=== PATIENT | male | born 1950 | race Caucasian/White ===

== ENCOUNTER 2016-10-17 12:36 | Emergency (ER) | payer OTHER, MEDICARE ==
[~2016-10-17] VITALS: Ht 177.8 cm; Wt 98.0 kg
[~2016-10-17 12:36] MED LIST: ALL300 PO; AMLO-114 PO; ASPEC81 PO; GLC500 PO; GLUC500T23 PO; GLYBURIDE PO; HYZUNK PO; INDO-22 PO; MULT-513 PO; SIMV40TA2 PO
[2016-10-17 12:38] VITALS: Ht 177.8 cm; Wt 98.0 kg
[2016-10-17] MEDS ORDERED: LOSA100T26 PO (12:59)
[2016-10-17] MEDS ORDERED: ALL300 PO (12:59)
[2016-10-17] MEDS ORDERED: MCR5 PO (12:59)
[2016-10-17] MEDS ORDERED: AMLO-114 PO (12:59)
[2016-10-17] MEDS ORDERED: ASPI81TA28 PO (12:59)
[2016-10-17] MEDS ORDERED: ZCR40 PO (12:59)
[2016-10-17] MEDS ORDERED: METF-384 PO (12:59)
[2016-10-17] MEDS ORDERED: ALBUT/IPRATROP 3MG/0.5MG NEB 3 ML VIAL INH STA (13:15)
[2016-10-17] MEDS ORDERED: ACETAMINOPHEN 325 MG TAB PO STA (13:15)
[2016-10-17] MEDS ORDERED: SODIUM CHLORIDE 0.9% 500ML 500 ML IV STA (13:15)
[2016-10-17 13:48] LABS: BASO % 0.4 %; BASO ABS # 0.07 K/uL (0-0.2); COMPLETE YES; EOS % 0.7 %; HEMATOCRIT 40.3 % (42-52); IG% 0.3 %; LYMPH % 12.9 %; MEAN CELL VOLUME 92.6 fL (80-100); MEAN CORPUSCULAR HGB CONC 33.5 g/dl (32-36); MEAN PLATELET VOLUME 11.1 fL (7.4-10.4); MONO % 7.1 %; NEUT % 78.6 %; PLATELET COUNT 479 K/uL (130-400); RED BLOOD COUNT 4.35 M/uL (4.7-6.1); WHITE BLOOD COUNT 16.25 K/uL (4.8-10.8)
[2016-10-17 14:02] LABS: PARTIAL THROMBOPLASTIN RATIO 1.1; PROTHROMBIN TIME (PATIENT) 10.9 SECONDS (9.0-12.0)
[2016-10-17 14:06] LABS: ALT/SGPT 41 U/L (12-78); BLOOD UREA NITROGEN 18 mg/dl (7-18); BUN/CREATININE RATIO 12.7 (10-20); CALCIUM 9.1 mg/dl (8.5-10.1); CARBON DIOXIDE 26 mmol/L (21-32); CHLORIDE 102 mmol/L (98-107); GLUCOSE 204 mg/dl (70-99); POTASSIUM 4.1 mmol/L (3.5-5.1); SODIUM 137 mmol/L (136-145)
[2016-10-17 14:11] LABS: ALKALINE PHOSPHATASE 86 U/L (45-117); AST/SGOT 22 U/L (15-37)
--- NOTE | 2016-10-17 14:40 | DIAGNOSTIC IMAGING REPORT ---
TWO VIEW CHEST CLINICAL HISTORY: Cough and fever. FINDINGS: PA and lateral chest radiographs are compared to study dated 09/07/2012. The cardiomediastinal silhouette is unremarkable. There is dense lobar consolidation is seen in the right middle lobe. The left lung appears clear. No pleural effusion or pneumothorax is identified. The bony thorax appears intact. Extensive fusion hardware is noted in the lower cervical spine. IMPRESSION: There is dense right middle lobe consolidation typical in appearance for pneumonia. Radiographic follow-up to resolution is recommended. Electronically signed by: Bob Wadsworth M.D. 10/17/2016 2:39 PM Dictated Date/Time: 10/17/2016 2:38 PM
[2016-10-17 14:43] LABS: LYME DISEASE AB IGG NEG (NEG); LYME DISEASE AB IGM NEG (NEG)
[2016-10-17] MEDS ORDERED: LEVOFLOXACIN 250 MG TAB PO ONE (14:45)
[2016-10-17] MEDS ORDERED: LEVO750T23 PO (15:18)
[2016-10-17 15:36] VITALS: BP 128/65; PULSE 82; TEMP 36.4; O2SAT 97
--- NOTE | 2016-10-17 19:46 | EMERGENCY ROOM VISIT NOTE ---
History Report prepared by Delbert: Radha Redman Under the Supervision of: Dr. Geremias Salter M.D. First contact with patient: 13:06 Chief Complaint: FLU LIKE SX Stated Complaint: FLU LIKE SX, SOB, SWEATS History of Present Illness The patient is a 65 year old male who presents to the Emergency Room with complaints of persistent flu-like symptoms for the past 2 weeks. He was having diarrhea and urinary symptoms initially that he states have resolved at this time. He is still experiencing generalized body aches, congestion, chills, diaphoresis, and an intermittent headache. The patient reports a productive cough with white sputum. Two days ago he developed shortness of breath that has started to worsen. He also notes increased sweating and "minor" chest pain. His pain is not worsened with coughing. He describes his pain as sharp and states that he thinks he "popped a rib" and that is causing his chest pain. He has been using OTC medications for his symptoms. He has not seen his PCP for these symptoms. The patient denies vomiting, abdominal pain, rash, and recent tick bites. He does report a 10-pound weight loss. Source of History: patient Onset: 2 weeks ago Position: other (global) Quality: other (flu-like) Timing: other (persistent) Associated Symptoms: + chills, + headache, + diaphoresis, + cough, + chest pain, + SOB, No vomiting, No abdominal pain, No rash Review of Systems See HPI for pertinent positives & negatives. A total of 10 systems reviewed and were otherwise negative. Past Medical & Surgical Medical Problems: (1) DM w/o complication type II, uncontrolled Surgical Problems: (1) History of knee replacement (2) Hx of spinal fusion Family History Cancer Diabetes mellitus Heart disease Hypertension Lung disease Social History Smoking Status: Former Smoker Alcohol Use: occasionally Marital Status: Housing Status: lives with significant other Occupation Status: retired Current/Historical Medications Scheduled Allopurinol (Allopurinol), 300 MG PO DAILY Amlodipine (Norvasc), 10 MG PO DAILY Aspirin (Aspirin Ec), 81 MG PO DAILY Glyburide (Glyburide), 2 TAB PO DAILY Hctz/Losartan (Hyzaar 12.5MG/100MG), 1 TAB PO DAILY Levofloxacin (Levaquin), 1 TAB PO DAILY Metformin Hcl (Glucophage), 1,000 MG PO BID Simvastatin (Simvastatin), 40 MG PO QPM Allergies Coded Allergies: No Known Allergies (Unverified , 09/24/11) Physical Exam Vital Signs Date Time Temp Pulse Resp B/P (MAP) Pulse Ox O2 Delivery O2 Flow Rate FiO2 10/17/16 15:36 36.4 82 18 128/65 97 10/17/16 14:35 83 16 128/65 10/17/16 13:54 72 10/17/16 12:38 36.4 80 22 122/72 96 Room Air Physical Exam Constitutional: Vital signs reviewed. Eyes: Pupils are equal round reactive to light. Conjunctiva are noninjected. ENT: Pharynx is clear without erythema or exudate. Mucous membranes are moist. Neck supple without meningeal signs. Respiratory: Clear to auscultation bilaterally. Breath sounds are equal bilaterally. Cardiovascular: Regular rate and rhythm. No rubs or gallops. GI: Soft, nondistended and nontender. Bowel sounds are present. Musculoskeletal: No peripheral edema. No lower extremity tenderness. Integumentary: No cyanosis. Neurological: The patient is awake and alert. No focal deficits. Psychiatric: Normal affect. Medical Decision & Procedures ER Provider Diagnostic Interpretation: Radiology results as stated below per my review and the radiologist's interpretation: TWO VIEW CHEST CLINICAL HISTORY: Cough and fever. FINDINGS: PA and lateral chest radiographs are compared to study dated 09/07/2012. The cardiomediastinal silhouette is unremarkable. There is dense lobar consolidation is seen in the right middle lobe. The left lung appears clear. No pleural effusion or pneumothorax is identified. The bony thorax appears intact. Extensive fusion hardware is noted in the lower cervical spine. IMPRESSION: There is dense right middle lobe consolidation typical in appearance for pneumonia. Radiographic follow-up to resolution is recommended. Electronically signed by: Bob Wadsworth M.D. 10/17/2016 2:39 PM Dictated Date/Time: 10/17/2016 2:38 PM Laboratory Results 10/17/16 13:28 Red Blood Count 4.35, Mean Corpuscular Volume 92.6, Mean Corpuscular Hemoglobin 31.0, Mean Corpuscular Hemoglobin Concent 33.5, Mean Platelet Volume 11.1, Neutrophils (%) (Auto) 78.6, Lymphocytes (%) (Auto) 12.9, Monocytes (%) (Auto) 7.1, Eosinophils (%) (Auto) 0.7, Basophils (%) (Auto) 0.4, Neutrophils # (Auto) 12.76, Lymphocytes # (Auto) 2.10, Monocytes # (Auto) 1.15, Eosinophils # (Auto) 0.12, Basophils # (Auto) 0.07 10/17/16 13:28 Test 10/17/16 13:10 10/17/16 13:28 White Blood Count 16.25 K/uL (4.8-10.8) Red Blood Count 4.35 M/uL (4.7-6.1) Hemoglobin 13.5 g/dL (14.0-18.0) Hematocrit 40.3 % (42-52) Mean Corpuscular Volume 92.6 fL (80-100) Mean Corpuscular Hemoglobin 31.0 pg (25-34) Mean Corpuscular Hemoglobin Concent 33.5 g/dl (32-36) Platelet Count 479 K/uL (130-400) Mean Platelet Volume 11.1 fL (7.4-10.4) Neutrophils (%) (Auto) 78.6 % Lymphocytes (%) (Auto) 12.9 % Monocytes (%) (Auto) 7.1 % Eosinophils (%) (Auto) 0.7 % Basophils (%) (Auto) 0.4 % Neutrophils # (Auto) 12.76 K/uL (1.4-6.5) Lymphocytes # (Auto) 2.10 K/uL (1.2-3.4) Monocytes # (Auto) 1.15 K/uL (0.11-0.59) Eosinophils # (Auto) 0.12 K/uL (0-0.5) Basophils # (Auto) 0.07 K/uL (0-0.2) RDW Standard Deviation 43.1 fL (36.4-46.3) RDW Coefficient of Variation 12.6 % (11.5-14.5) Immature Granulocyte % (Auto) 0.3 % Immature Granulocyte # (Auto) 0.05 K/uL (0.00-0.02) Prothrombin Time 10.9 SECONDS (9.0-12.0) Prothromb Time International Ratio 1.0 (0.9-1.1) Activated Partial Thromboplast Time 27.3 SECONDS (21.0-31.0) Partial Thromboplastin Ratio 1.1 Anion Gap 9.0 mmol/L (3-11) Est Creatinine Clear Calc Drug Dose 61.8 ml/min Estimated GFR () 60.7 Estimated GFR (Non- 52.4 BUN/Creatinine Ratio 12.7 (10-20) Calcium Level 9.1 mg/dl (8.5-10.1) Total Bilirubin 0.4 mg/dl (0.2-1) Direct Bilirubin 0.1 mg/dl (0-0.2) Aspartate Amino Transf (AST/SGOT) 22 U/L (15-37) Alanine Aminotransferase (ALT/SGPT) 41 U/L (12-78) Alkaline Phosphatase 86 U/L (45-117) Troponin I < 0.015 ng/ml (0-0.045) Total Protein 8.3 gm/dl (6.4-8.2) Albumin 2.9 gm/dl (3.4-5.0) Lyme Disease IgG Antibody NEG (NEG) Lyme Disease IgM Antibody NEG (NEG) Laboratory results as reviewed by me. Medications Administered Medications (Trade) Dose Ordered Sig/Ciaran Route Start Time Stop Time Status Last Admin Dose Admin Albuterol/ Ipratropium (Duoneb) 3 ml NOW STAT INH 10/17/16 13:15 10/17/16 13:18 DC 10/17/16 13:47 3 ML Sodium Chloride 500 ml @ 999 mls/hr Q31M STAT IV 10/17/16 13:15 10/17/16 13:45 DC 10/17/16 13:46 999 MLS/HR Acetaminophen (Tylenol Tab) 650 mg NOW STAT PO 10/17/16 13:15 10/17/16 13:18 DC 10/17/16 13:46 650 MG Levofloxacin (Levaquin Tab) 750 mg NOW ONCE PO 10/17/16 14:45 10/17/16 14:46 DC 10/17/16 14:57 750 MG ECG Indication: SOB/dyspnea Rate (beats per minute): 76 Rhythm: sinus rhythm Findings: PAC, no acute ischemic change ED Course 1306: The patient was evaluated in room A2. A complete history and physical exam was performed. 1315: Tylenol 650 mg PO, NSS 500 ml @ 999 mls/hr IV, Duoneb 3 ml INH 1445: Levofloxacin 750 mg PO 1450: I reassessed the patient at this time. He does not feel any different after the duoneb. His oxygen saturation is 98% on room air. I discussed the results and treatment plan with the patient. I discussed the risks of hypoglycemia on Levaquin. I answered all pertaining that he had. He expressed understanding and verbalized agreement. The patient will be discharged home. Medical Decision This is a 65-year-old male who presents with fever and cold symptoms. Differential diagnosis includes pneumonia, bronchitis, pericarditis, influenza, Lyme disease, viral syndrome. I did perform a limited focused review of portions of the patient's old chart on the electronic medical record. The patient has had no recent pertinent visits to this hospital. Medication Reconciliation: I attest that I have personally reviewed the patient' s current medication list. Blood Pressure Screening: Patient was found to have normal blood pressure on screening and does not require follow-up. I did evaluate the patient as noted above. IV access was established. The patient was placed on a continuous registered nurse cardiac telemetry. I did order and personally review the patient's 12-lead EKG and chest x-ray as described above. The patient does have a right middle lobe pneumonia. I did order and review the patient's blood work as noted in the electronic medical record. I did treat patient with a DuoNeb. He was also given Tylenol. I did reassess the patient. I did discuss the test results with the patient. His O2 saturation is 98% on room air. He is not tachypneic or tachycardic. I did treat him with Levaquin 750 mg. He was discharged with a prescription for 4 more days of Levaquin 750 mg. He was advised follow with his doctor. He was discharged in good condition. Impression Primary Impression: Right middle lobe pneumonia Scribe Attestation The scribe's documentation has been prepared under my direct and personally reviewed by me in its entirety. I confirm that the note above accurately reflects all work, treatment, procedures, and medical decision making performed by me. Departure Information Dispostion Home / Self-Care Prescriptions Levofloxacin (LEVAQUIN) 750 Mg Tab 1 TAB PO DAILY for 4 Days, #4 TAB Prov: Geremias Salter M.D. 10/17/16 Referrals No Doctor, Assigned (PCP) Forms HOME CARE DOCUMENTATION FORM, IMPORTANT VISIT INFORMATION Patient Instructions My [facility], Pneumonia (Bacterial) - [facility] Additional Instructions You have been examined and treated today on an emergency basis only. This is not a substitute for, or an effort to provide, complete comprehensive medical care. It is impossible to recognize and treat all injuries or illnesses in a single emergency department visit. It is therefore important that you follow up closely with your physician this week. Call as soon as possible for an appointment. Return for worsening symptoms or if you develop vomiting or any other concerning symptoms. Problem Qualifiers Primary Impression: Right middle lobe pneumonia Pneumonia type: due to unspecified organism Qualified Codes: J18.1 - Lobar pneumonia, unspecified organism
== END 2016-10-17 15:37 | disposition home or self-care (01) ==
LOC: C.EDB 12:38 → C.EDA 15:37
DX: J18.1 Lobar pneumonia, unspecified organism (principal); E11.9 Type 2 diabetes mellitus without complications; Z98.1 Arthrodesis status; Z96.659 Presence of unspecified artificial knee joint; Z87.891 Personal history of nicotine dependence; Z79.82 Long term (current) use of aspirin; Z79.84 Long term (current) use of oral hypoglycemic drugs; Z79.899 Other long term (current) drug therapy

== ENCOUNTER 2019-12-26 07:09 | Inpatient (IN) ==
--- NOTE | 2019-12-12 10:40 | PAT Medication Instructions ---
Medication Instructions Date of Service December 12, 2019 Home Medications Medication Instructions Recorded gabapentin 300 mg capsule 300 mg PO QID #360 cap 11/14/19 atorvastatin 40 mg tablet 40 mg PO QPM fluticasone propionate 50 mcg/actuation nasal spray,suspension 2 sprays INTNAS TID PRN glimepiride 4 mg tablet 4 mg PO BID losartan 100 mg-hydrochlorothiazide 12.5 mg tablet 1 tab PO QAM meloxicam 7.5 mg tablet 7.5 mg PO BID metformin 1,000 mg tablet 1,000 mg PO BID gabapentin 300 mg capsule 300 mg PO QID Proaxil 1 tab PO QAM allopurinol 300 mg PO QAM amlodipine 10 mg PO QAM aspirin [Aspir-81] 81 mg PO QAM coQ10 (ubiquinol) 200 mg PO QAM multivitamin [Bnj-Rpokgl-Lmshk] 1 tab PO QAM turmeric root extract 500 mg PO QAM ASK your surgeon for instructions meloxicam 7.5 mg tablet 7.5 mg PO BID ASK your prescriber and surgeon aspirin [Aspir-81] 81 mg PO QAM STOP taking 2 weeks before surgery (or as soon as possible if surgery is within 2 weeks) Proaxil 1 tab PO QAMM coQ10 (ubiquinol) 200 mg PO QAM turmeric root extract 500 mg PO QAM DO NOT take the morning of surgery glimepiride 4 mg tablet 4 mg PO BID losartan 100 mg-hydrochlorothiazide 12.5 mg tablet 1 tab PO QAM multivitamin [Dji-Aockai-Nwxsm] 1 tab PO QAM Take morning of surgery With a small sip of water, OTHERWISE NOTHING TO EAT OR DRINK AFTER MIDNIGHT: fluticasone propionate 50 mcg/actuation nasal spray,suspension 2 sprays INTNAS TID PRN (if needed) gabapentin 300 mg capsule 300 mg PO QID allopurinol 300 mg PO QAM amlodipine 10 mg PO QAM Take evening before surgery atorvastatin 40 mg tablet 40 mg PO QPM fluticasone propionate 50 mcg/actuation nasal spray,suspension 2 sprays INTNAS TID PRN (if needed) glimepiride 4 mg tablet 4 mg PO BID metformin 1,000 mg tablet 1,000 mg PO BID gabapentin 300 mg capsule 300 mg PO QID Other Notes If you have any questions please call us at [phone] or [phone] or [phone] or [phone]
--- NOTE | 2019-12-13 13:36 | Anesthesiology Consultation ---
Date of Service December 13, 2019 Assessment & Plan (1) Encounter for pre-operative examination: Chart Review Chart Review: Pending: Refer to Additional Notes / Consult section (Surgeon ordered PCP clearance and preop Covid testing ) and Patient seen in Pre Admission Testing Awaiting surgeon ordered PCP clearance scheduled 12/13 - Check [facility] AM DOS Per PAT appt on 12/13/19, resides in [facility]. Wears mask, uses good hand hygiene and socially distances. Educated patient to follow up with surgeon's office regarding Covid testing. Educated on importance of self quarantining, social distancing and wearing mask in public both for the patient and household contacts. Teaching & Discussion Pre-Anesthesia Teaching/Discussion Notes: Instructed NPO after midnight before surgery,except medications with 15 cc of water. Medication instructions provided according to the [facility] guidelines. History Surgery Operation Date: 12/26/19 07:45 Proposed Procedures p L1 - S1 Decompression Fusion, Possible T11-S1 Fusion Spinal Cord Monitoring - Jorge Harvey, Height/Weight Height: 5 ft 10 in Weight: 98.3 kg Allergies Allergy/AdvReac Type Severity Reaction Status Date / Time No Known Allergies Allergy Verified 12/07/19 13:24 Medications Home Medications Medication Instructions Recorded Confirmed Last Taken atorvastatin 40 mg tablet 40 mg PO QPM 10/23/19 12/07/19 Unknown fluticasone propionate 50 2 sprays INTNAS TID PRN 10/23/19 12/07/19 Unknown mcg/actuation nasal spray,suspension glimepiride 4 mg tablet 4 mg PO BID tab 10/23/19 12/07/19 Unknown losartan 100 1 tab PO QAM 10/23/19 12/07/19 Unknown mg-hydrochlorothiazide 12.5 mg tablet meloxicam 7.5 mg tablet 7.5 mg PO BID 10/23/19 12/07/19 Unknown metformin 1,000 mg tablet 1,000 mg PO BID 10/23/19 12/07/19 Unknown gabapentin 300 mg capsule 300 mg PO QID #360 cap 11/14/19 12/07/19 Unknown Proaxil 1 tab PO QAM 12/07/19 12/07/19 Unknown allopurinol 300 mg PO QAM 12/07/19 12/07/19 Unknown amlodipine 10 mg PO QAM 12/07/19 12/07/19 Unknown aspirin [Aspir-81] 81 mg PO QAM 12/07/19 12/07/19 Unknown coQ10 (ubiquinol) 200 mg PO QAM 12/07/19 12/07/19 Unknown multivitamin [Drc-Qknypp-Nbyvd] 1 tab PO QAM 12/07/19 12/07/19 Unknown turmeric root extract 500 mg PO QAM 12/07/19 12/07/19 Unknown Past Medical History Medical History Cervical fusion syndrome C3-7- NECK EXTENSION SIGNIFICANTLY DECREASED Chronic sinusitis Stable CKD (chronic kidney disease) Mild Diabetes Well controlled and stable per patient Dyslipidemia Gout No recent flares Hypertension Incontinence Urinary- well controlled with supplements Peripheral neuropathy Possible per patient- to LEs 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- no visual issues at this time Exercise / Class Metabolic Activity II 4-5 Yardwork/Stairs/Walk up hill (one flight of stairs- no chest pain or SOB ) Past Family History Family History Mother Family history of diabetes mellitus Family hx of colon cancer Sister Family history of diabetes mellitus Other Diabetes Stroke Past Surgical History Surgical History History of arthroscopy RIGHT History of cataract surgery R/L History of colonoscopy History of repair of rotator cuff RIGHT Hx of spinal fusion Hx of total knee replacement RIGHT Past Anesthesia History No Hx of Anesthesia Complications and No Family Hx of Anesthesia Complications History of PONV No Hx of PONV and No Hx of Motion Sickness Social History Smoking Status: Former smoker tobacco type: smokeless tobacco Do You Dip or Chew Tobacco: Yes (20 CANS A MONTH) Smoking End Date: QUIT 30 YRS AGO Hx Alcohol Use: Yes Alcohol type: beer alcohol intake frequency: a few times a month Hx Substance Use: No Review of Systems Patient denies chest pain, shortness of breath, dyspnea on exertion, reflux, cough, wheezing, palpitations. No hx of seizures, stroke, MA, apnea/snoring. No hx of blood clots or blood transfusions Physical Exam Vital Signs VITALS BP 126/79 P 72 TEMP 98.4 SP02 98% 16RESP Constitutional no acute distress ENMT Mouth: no TMJ clicking Thyromental Distance: > or= 3.5 Finger Breadths (4.0) Mallampati Class: I Missing molars Neck + short neck (mild ), + thick neck (mild ) and + limited neck extension (significant ) Respiratory normal respiratory effort; no respiratory distress Auscultation: lungs clear to auscultation bilaterally; no wheezes Cardiovascular Rate/Rhythm: regular rate and regular rhythm Heart Sounds: no murmur Vessels: no carotid bruit Musculoskeletal Spine: + pain with cervical ROM (minimal) Neurologic moves all extremities Psychiatric Orientation: alert Testing Laboratory Results 12/13/19 13:31 PT 10.3 Seconds (9.0-12.0) 12/13/19 13:31 INR 1.0 (0.9-1.1) 12/13/19 13:31 APTT 23.6 Seconds (21.0-31.0) 12/13/19 13:31 Urine Color Dark Yellow 12/13/19 Unknown Urine Appearance Clear (Clear) 12/13/19 Unknown Urine pH 5.0 (4.5-7.5) 12/13/19 Unknown Ur Specific [place] 1.027 (1.000-1.030) 12/13/19 Unknown Urine Protein Negative (Negative) 12/13/19 Unknown Urine Glucose (UA) Trace (Negative) H 12/13/19 Unknown Urine Ketones Trace (Negative) H 12/13/19 Unknown Urine Nitrite Negative (Negative) 12/13/19 Unknown Ur Leukocyte Esterase Negative (Negative) 12/13/19 Unknown Blood Type A Positive 12/13/19 13:31 Antibody Screen NEGATIVE 12/13/19 13:31 12/11/19= SODIUM: 143 POTASSIUM: 4.6 CHLORIDE: 104 CO2: 28 BUN: 11 CREATININE: 1.27 GLUCOSE: 163 HGB A1C: 7.2 Electrocardiogram Date: 12/13/19 Findings: + NSR @ (72) Chest X-Ray Date: 12/13/19 Findings: + NAD There is mild elevation of right hemidiaphragm with scarring/atelectasis at the right lung base.
[2019-12-13 14:26] LABS: Basophils # (auto) 0.05 K/uL (0-0.2); Basophils % (auto) 0.6 %; Eosinophils # (auto) 0.15 K/uL (0-0.5); Eosinophils % (auto) 1.8 %; Hematocrit (blood only) 39.2 % (42-52); Hemoglobin 13.1 g/dL (14.0-18.0); Immature Granulocytes # (auto) 0.02 K/uL (0.00-0.02); Immature Granulocytes % (auto) 0.2 %; Lymphocytes # (auto) 2.27 K/uL (1.2-3.4); Lymphocytes % (auto) 27.3 %; Mean Corpuscular Hemoglobin 31.9 pg (25-34); Mean Corpuscular Hgb Conc 33.4 g/dL (32-36); Mean Corpuscular Volume 95.4 fL (80-100); Monocytes # (auto) 0.44 K/uL (0.11-0.59); Monocytes % (auto) 5.3 %; Neutrophils % (auto) 64.8 %; Platelet Count 212 K/uL (130-400); RDW Coefficient of Variation 13.2 % (11.5-14.5); RDW Standard Deviation 45.7 fL (36.4-46.3); Red Blood Count 4.11 M/uL (4.7-6.1); White Blood Count 8.33 K/uL (4.8-10.8)
--- NOTE | 2019-12-13 14:28 | XRay Report ---
TWO VIEW CHEST CLINICAL HISTORY: Preoperative examination. FINDINGS: PA and lateral chest radiographs are compared to study dated 10/17/2016. The cardiomediastina l silhouette is unremarkable. There is mild elevation of right hemidiaphragm with scarring/atelectasi s at the right lung base. The lungs and pleural spaces are otherwise clear. There is no pneumothorax. The bony thorax appears intact. There is chronic widening at the right acromioclavicular joint. IMPRESSION: No active disease in the chest. ACT 112: Negative or not required by law. Electronically signed by: Bob Wadsworth M.D. 12/13/2019 2:26 PM
[2019-12-13 14:32] LABS: Appearance Urine Clear (Clear); Bilirubin Urine Negative (Negative); Blood Urine Negative (Negative); Color Urine Dark Yellow; Glucose Urine UA Trace (Negative); Ketones Urine Trace (Negative); Leukocyte Esterase Urine Negative (Negative); Nitrite Urine Negative (Negative); Protein Urine Negative (Negative); Specific Gravity Urine 1.027 (1.000-1.030); Urobilinogen Urine Negative (Negative)
[2019-12-13 14:36] LABS: Partial Thromboplastin Ratio 0.8; Partial Thromboplastin Time 23.6 Seconds (21.0-31.0); Prothrombin Time 10.3 Seconds (9.0-12.0)
--- NOTE | 2019-12-13 16:22 | Electrocardiogram Report ---
Test Reason : Blood Pressure : / mmHG Vent. Rate : 072 BPM Atrial Rate : 072 BPM P-R Int : 162 ms QRS Dur : 076 ms QT Int : 380 ms P-R-T Axes : 044 039 -04 degrees QTc Int : 416 ms Normal sinus rhythm Normal ECG When compared with ECG of 17-OCT-2016 13:36, Premature ventricular complexes are no longer Present Confirmed by Juan Daniel Mays ([id number]) on 12/13/2019 4:22:21 PM Referred By: Jorge Harvey Confirmed By:Juan Daniel Mays
[~2019-12-26 07:09] MED LIST changes: +ACETAMINOPHEN 500 MG TAB PO SCH; -ALL300 PO; -AMLO-114 PO; -ASPEC81 PO; +CEFAZOLIN 2000MG 2,000 MG/15 ML SYR IV SCH; +CeleBREX 200 MG CAP PO SCH; +GABAPENTIN 300 MG CAP PO SCH; -GLC500 PO; -GLUC500T23 PO; -GLYBURIDE PO; -HYZUNK PO; -INDO-22 PO; +LR 15ML/HR IV SCH; -MULT-513 PO; -SIMV40TA2 PO
[2019-12-26] MEDS ORDERED: ALBUMIN HUMAN 5% 12.5 GM/250 ML VIAL IV ONE (07:30)
[2019-12-26] MEDS ORDERED: CISATRACURIUM BESYLATE IV SOLN 2 MG/ML 10 ML VIAL IV ONE ×2 (07:30→10:44)
--- NOTE | 2019-12-26 07:49 | History & Physical Bridge Note ---
Date of Service December 26, 2019 History & Physical Bridge Note I have examined the patient, reviewed the History & Physical and in the interval since the performance of the History & Physical I have noted the following changes of clinical significance: no changes noted
--- NOTE | 2019-12-26 07:50 | History & Physical Report ---
Date of Service December 26, 2019 Assessment & Plan (1) Neurogenic claudication due to lumbar spinal stenosis: Admission and Anticipated Discharge Date Admission Date: L1-S1 decompression fusion, possible T11 S1 fusion History of Present Illness Chief Complaint: Back and bilateral leg pain Primary Care Provider: JOHN Rangel This is a 69-year-old male who presents with chronic persistent back and bilateral leg pain. After failing course of nonoperative care is here for surgical intervention. Allergies Allergy/AdvReac Type Severity Reaction Status Date / Time No Known Allergies Allergy Verified 12/26/19 07:50 Home Medications Home Medications Medication Instructions Recorded Confirmed Type atorvastatin 40 mg tablet 40 mg PO QPM 10/23/19 12/07/19 History fluticasone propionate 50 2 sprays INTNAS TID PRN 10/23/19 12/07/19 History mcg/actuation nasal spray,suspension glimepiride 4 mg tablet 4 mg PO BID tab 10/23/19 12/07/19 History losartan 100 1 tab PO QAM 10/23/19 12/07/19 History mg-hydrochlorothiazide 12.5 mg tablet meloxicam 7.5 mg tablet 7.5 mg PO BID 10/23/19 12/07/19 History metformin 1,000 mg tablet 1,000 mg PO BID 10/23/19 12/07/19 History gabapentin 300 mg capsule 300 mg PO QID #360 cap 11/14/19 12/07/19 Rx Proaxil 1 tab PO QAM 12/07/19 12/07/19 History allopurinol 300 mg PO QAM 12/07/19 12/07/19 History amlodipine 10 mg PO QAM 12/07/19 12/07/19 History aspirin [Aspir-81] 81 mg PO QAM 12/07/19 12/07/19 History coQ10 (ubiquinol) 200 mg PO QAM 12/07/19 12/07/19 History multivitamin [Otd-Rnjlfe-Bqcog] 1 tab PO QAM 12/07/19 12/07/19 History turmeric root extract 500 mg PO QAM 12/07/19 12/07/19 History Past Med/Surg History Medical History Cervical fusion syndrome C3-7- NECK EXTENSION SIGNIFICANTLY DECREASED Chronic sinusitis Stable CKD (chronic kidney disease) Mild Diabetes Well controlled and stable per patient Dyslipidemia Gout No recent flares Hypertension Incontinence Urinary- well controlled with supplements Peripheral neuropathy Possible per patient- to LEs 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- no visual issues at this time Surgical History History of arthroscopy RIGHT History of cataract surgery R/L History of colonoscopy History of repair of rotator cuff RIGHT Hx of spinal fusion Hx of total knee replacement RIGHT Family History Mother Family history of diabetes mellitus Family hx of colon cancer Sister Family history of diabetes mellitus Other Diabetes Stroke Social History (Updated 10/23/19 @ 14:45 by Radha Worthington RN) Smoking Status: Former smoker Smoking End Date: QUIT 30 YRS AGO; Second Hand Exposure: Yes (FATHER SMOKED); Do You Dip or Chew Tobacco: Yes (20 CANS A MONTH); Hx Alcohol Use: Yes Alcohol type: beer Hx Substance Use: No Preferred Language: Amharic Communication Ability: Effective Visual Impairment: No Limitations Hearing Ability: Hard of Hearing Customer Advisor Specialist Required: No Beliefs That Will Affect Care: None marital status: Current Living Situation: Spouse current occupational status: retired Other Information That Helps Us Care for You: No Feels Safe at Home: Yes Safety Concerns: Feels Safe At This Time Physical Exam Physical Exam: Patient alert and oriented neurologically intact. Heart regular rate and rhythm. Lungs clear to auscultation. Results & Data ([facility]) Vital Signs (Past 12 Hours) Vital Signs Temp Pulse Resp BP Pulse Ox 12/26/19 07:46 36.7 C 66 18 158/77 H 97
[2019-12-26] MEDS ORDERED: fentaNYL citrate 100 MCG/2 ML VIAL ONE (08:27)
[2019-12-26] MEDS ORDERED: MIDAZOLAM HCL 1 MG/ML 2ML VIAL ONE (08:28)
[2019-12-26] MEDS ORDERED: PHENYLEPHRINE HCL 10 MG/ML VIAL ONE (08:42)
[2019-12-26] MEDS ORDERED: BACITRACIN INJ 50,000 UNIT VIAL ONE ×2 (09:24→09:31)
[2019-12-26] MEDS ORDERED: BUPIVACAINE/EPINEPHRINE 0.25% 1:200,000 30 ML VIAL ONE ×2 (09:24→09:31)
[2019-12-26] MEDS ORDERED: ePHEDrine sulfate 50 MG/ML AMP IV PRN (09:28)
[2019-12-26] MEDS ORDERED: NALOXONE HCL 0.4 MG/1 ML VIAL/CARP IV PRN ×2 (09:28→15:52)
[2019-12-26] MEDS ORDERED: FLUMAZENIL 0.1 MG/1 ML 10 ML VIAL IV PRN (09:28)
[2019-12-26] MEDS ORDERED: ATROPINE SULFATE 0.1 MG/ML 10ML SYR IV PRN (09:28)
[2019-12-26] MEDS ORDERED: PROMETHAZINE HCL 12.5 MG in SODIUM CHLORIDE 0.9% 50 ML IV PRN ×2 (09:28→15:52)
[2019-12-26] MEDS ORDERED: ONDANSETRON INJ 2 MG/ML 2 ML VIAL IV PRN ×2 (09:28→15:52)
[2019-12-26] MEDS ORDERED: LABETALOL HCL IV 5 MG/ML 20ML IV PRN (09:28)
[2019-12-26] MEDS ORDERED: fentaNYL citrate 100 MCG/2 ML VIAL IV PRN (09:28)
[2019-12-26] MEDS ORDERED: THROMBIN FOR SOLN 20000 UNIT KIT ONE (10:03)
[2019-12-26] MEDS ORDERED: HYDROmorphone INJ 2 MG/ML SYR/VIAL ONE (10:39)
[2019-12-26] MEDS ORDERED: GLYCOPYRROLATE 0.2 MG/ML VIAL ONE (10:44)
[2019-12-26] MEDS ORDERED: PROPOFOL IV EMULSION 10 MG/ML 20 ML VIAL IV ONE (10:44)
[2019-12-26] MEDS ORDERED: NEOSTIGMINE METHYLSULFATE 1 MG/ML 10ML VIAL ONE (10:44)
[2019-12-26] MEDS ORDERED: ePHEDrine sulfate 50 MG/ML SYR ONE (10:44)
[2019-12-26] MEDS ORDERED: ONDANSETRON INJ 2 MG/ML 2 ML VIAL ONE (10:44)
[2019-12-26] MEDS ORDERED: DEXAMETHASONE SOD INJ 4 MG/ML VIAL ONE (10:44)
[2019-12-26] MEDS ORDERED: SUCCINYLCHOLINE CHLORIDE 20 MG/ML 10 ML VIAL IV ONE (10:44)
[2019-12-26] MEDS ORDERED: LIDOCAINE HCL 2% 2 ML VIAL/AMP(20MG/ML) INFIL ONE (10:44)
[2019-12-26] MEDS ORDERED: LARYING-O-JET KIT (LTA) ONE (10:44)
[2019-12-26] MEDS ORDERED: FLOSEAL HEMOSTATIC MATRIX 10ML TOP ONE (11:04)
[2019-12-26 13:25] LABS: Hematocrit (blood only) 31.9 % (42-52)
[2019-12-26] MEDS ORDERED: SODIUM CHLORIDE 0.9% 250 ML IV PRN (13:30)
--- NOTE | 2019-12-26 13:38 | Operative Report ---
Post Operative Report Pre & Post Diagnosis Operation Date: 12/26/19 09:05 Pre-Op Diagnosis: Lumbar spinal stenosis with neurogenic claudication Post-Op Diagnosis: Same I identified the patient and participated in the time-out.: Yes Procedure Operation Date: 12/26/19 09:05 Actual Procedures #1 lumbar decompression with bilateral medial facetectomies and foraminotomies L1-2, L2-3, L3-4, L4-5 and L5-S1. #2 posterior spinal fusion T11-S1. #3 placement posterior segmental instrumentation T12-S1. #4 interbody fusion L4-5 and L5-S1. #5 placed a peek cage 12 x 26 mm at L4-5 and 13 x 26 mm at L5-S1. #6 placement of locally harvested morselized autograft in the posterior lateral gutters per #7 placement infuse collagen sponge and master graft in the posterior lateral gutters and ostial amp and interbody space. Surgeon Jorge Harvey, Metal Casket Maker Deisy Heard Estimated Blood Loss 600 Findings Consistent with Post-Op Diagnosis Specimens None Indications This is a 69-year-old male who presents with the above-mentioned diagnosis after failing extensive course of nonoperative care is here for the above-mentioned procedure. Description of Procedure Patient was met with identified informed consent obtained. Patient was then taken to the operative suite underwent an patient placed in a prone position on the Tucker table on top of the Yefri frame. All bony prominences well-padded eyes inspected to ensure no external pressure placed upon the. This point the thoracolumbar spine was prepped and draped in a normal sterile fashion. Sharp dissection with assistance of Bovie cautery was performed down to and exposing the lamina and transverse processes of T11-T12 L1-L2 L3-L4-L5 and the sacral ala bilaterally. From a caudal to cephalad fashion complete laminectomy of L5 L4 L3 L2 and partial laminectomy of L1 was performed including bilateral medial facetectomies and foraminotomies addressing severe spinal stenosis. Pedicle screws were then placed in T12 L1-L2 L3-L4-L5 and S1 levels bilaterally with the assistance of fluoroscopy. The process araceli was then contoured and placed. Believe a transforaminal approach on the left complete discectomy of L5-S1 was performed endplates curetted to subcortical bleeding bone and a 13 x 26 mm peek cage filled with osteo-bone graft tapped in position. Then proceeded L4-[address] of a trans-foraminal approach on the left complete discectomy was performed endplates curetted to subcortical bleeding bone and a 12 x 26 mm peek cage filled with osteo-bone graft tapped in position. The rods were then locked into final position bilaterally. The transverse processes of T11 through to the sacral ala were burred to subcortical bleeding bone. Infuse collagen sponge master graft local autograft was placed in the posterior gutters. 15 round ZHANNA drain inserted. Incision was then closed with 1 Vicryl in the fascia 2-0 Vicryl subcutaneously and 4 Monocryl for final skin closure. Steri-Strip sterile dressings placed. Patient waken taken back in stable condition. Please note spinal cord monitoring was utilized that the procedure no changes noted. Lastly Deisy Heard was present at the entire surgery involved the patient positioning complex portions of the surgery and final skin closure. I attest to the content of the Intraoperative Record and any orders documented therein. Any exceptions are noted below.
--- NOTE | 2019-12-26 13:42 | Fluoroscopy Report ---
INTRAOPERATIVE RADIOGRAPHS CLINICAL HISTORY: T11-S1 spinal fusion. Fluoroscopy time: 37 seconds. FINDINGS: 5 spot fluoroscopic views of the lumbar spine are presented. There has been discectomy at L 4-L5 and L5-S1 with laminectomy and posterior fusion from T11-S1. Interpedicular screws are present at all levels. The orthopedic hardware appears intact. IMPRESSION: Intraoperative images from T11-S1 spinal fusion as above. Electronically signed by: Bob Wadsworth M.D. 12/26/2019 1:41 PM
[2019-12-26 14:48] LABS: Hematocrit (blood only) 30.7 % (42-52); Hemoglobin 10.4 g/dL (14.0-18.0)
--- NOTE | 2019-12-26 15:26 | Anesthesiology Progress Note ---
Date of Service December 26, 2019 Anesthesia Post Procedure Vital Signs Vital Signs: Temp Pulse Resp BP Pulse Ox 12/26/19 15:20 36.9 C 67 12 112/65 97 12/26/19 15:10 68 12 104/60 100 12/26/19 15:00 36.6 C 67 15 105/65 97 12/26/19 14:50 65 12 124/78 100 12/26/19 14:40 68 12 108/63 95 12/26/19 14:30 65 12 116/61 99 12/26/19 14:20 73 12 103/65 98 12/26/19 14:10 74 15 112/61 100 12/26/19 14:01 37.1 C 75 19 122/74 100 12/26/19 08:34 68 18 116/74 97 12/26/19 07:46 36.7 C 66 18 158/77 H 97 Pain Intensity Left Hip: Pain Intensity: 4 Transfer of Care Handoff Completed per policy Notes Mental Status: alert / awake / arousable Patient Amnestic to Procedure: Yes Nausea / Vomiting: adequately controlled Pain: adequately controlled Airway Patency, RR, SpO2: stable & adequate BP & HR: stable & adequate Hydration State: stable & adequate Anesthetic Complications: no major complications apparent
[2019-12-26] MEDS ORDERED: DO NOT ADMINISTER PNEUMOCOCCAL VACCINE PRN (15:52)
[2019-12-26] MEDS ORDERED: ACETAMINOPHEN 1,000 MG/100 ML VIAL IV PRN (15:52)
[2019-12-26] MEDS ORDERED: HYDROmorphone INJ 1 MG/ML SYRINGE IV PRN (15:52)
[2019-12-26] MEDS ORDERED: HYDROmorphone INJ 0.5 MG/0.5 ML SYR IV PRN (15:52)
[2019-12-26] MEDS ORDERED: bisacodyL 10 MG SUPP PR PRN (15:52)
[2019-12-26] MEDS ORDERED: ONDANSETRON 4 MG OD TAB PO PRN (15:52)
[2019-12-26] MEDS ORDERED: TRAMADOL HCL 50 MG TABLET PO PRN (15:52)
[2019-12-26] MEDS ORDERED: MAGNESIUM HYDROXIDE SUSP 30 ML UDC PO PRN (15:52)
[2019-12-26] MEDS ORDERED: METOCLOPRAMIDE HCL INJ 5 MG/ML 2 ML VIAL IV PRN (15:52)
[2019-12-26] MEDS ORDERED: OXYCODONE HCL IR 5 MG TAB (IMMEDIATE RELEASE) PO PRN (15:52)
[2019-12-26] MEDS ORDERED: ALUMINUM/MAGNESIUM SUSP 30 ML UDC PO PRN (15:52)
[2019-12-26] MEDS ORDERED: FAMOTIDINE 20 MG TAB PO PRN (15:52)
[2019-12-26] MEDS ORDERED: SOD PHOSPHATE/SOD BIPHOSPHATE ENEMA 132 ML BTL PR PRN (15:52)
[2019-12-26] MEDS ORDERED: LORazepam 0.5 MG TAB PO PRN (15:52)
[2019-12-26] MEDS ORDERED: DO NOT ADMINISTER FLU VACCINE PRN (15:52)
[2019-12-26] MEDS ORDERED: LORazepam 0.5 MG/1 ML VIAL IV PRN (15:52)
[2019-12-26] MEDS ORDERED: PHARMACY GLYCEMIC MGMT CONSULT PRN (15:57)
[2019-12-26] MEDS ORDERED: DEXTROSE 50% 50 ML SYRINGE IV PRN (16:15)
[2019-12-26] MEDS ORDERED: GLUCOSE 40% GEL 15 GM TUBE PO PRN (16:15)
[2019-12-26] MEDS ORDERED: GLUCOSE 10 TABS/TUBE PO PRN (16:15)
[2019-12-26] MEDS ORDERED: CARBOHYDRATES FOR HYPOGLYCEMIA PO PRN (16:15)
[2019-12-26] MEDS ORDERED: GLUCAGON FOR INJ 1 MG VIAL IM PRN (16:15)
[2019-12-26] MEDS: SODIUM CHLORIDE 0.9% 1000ML 1,000 ML IV SCH (16:23)
[2019-12-26] MEDS: GABAPENTIN 300 MG CAP PO SCH ×2 (16:24→20:11)
[2019-12-26] MEDS ORDERED: PHARMACY GLYCEMIC MGMT CONSULT STA (16:54)
[2019-12-26 17:11] LABS: iSTAT Creatinine 1.3 mg/dl (0.6-1.3); iSTAT Hemoglobin 10.9 g/dl (14.0-18.0); iSTAT Ionized Calcium 1.19 mmol/l (1.12-1.32)
--- NOTE | 2019-12-26 17:20 | Consultation ---
Date of Consultation December 26, 2019 Assessment & Plan (1) Neurogenic claudication due to lumbar spinal stenosis: 69-year-old male with history of diabetes, hypertension, dyslipidemia, gout, presented with lumbar spine Decompression and fusion today. Status post lumbar spine decompression and fusion Patient stable overall Monitor hemoglobin Transfuse as needed for hemoglobin below 7 Diabetes type 2 Usually on glimepiride and metformin BSG 189 Has received Decadron Glimepiride and metformin, insulin sliding scale ordered Pharmacy glycemic control consult Hypertension Continue amlodipine 10 mg daily Continue usual losartan, hold HCTZ to prevent dehydration Dyslipidemia Continue Lipitor Gout Continue allopurinol Thank you for this consultation. We will follow the patient with you during their hospital stay. You can reach a member of the [facility] Hospitalist Team 08/11 via pager @ [phone]. History of Present Illness 69-year-old male with history of diabetes, hypertension, dyslipidemia, gout, presenting status post lumbar decompression fusion. Patient underwent lumbar spine decompression and fusion today by Dr. Harvey. He was seen resting in bed, sleeping but easily awakened. He is awake and alert, comfortable, not in distress. Says he feels fine overall Denies active back pain or any pain in his body Shortness of breath, palpitations, dizziness, nausea No other symptoms Blood sugar 189 Attending Physician: Jorge Harvey, DO Allergies Allergy/AdvReac Type Severity Reaction Status Date / Time No Known Allergies Allergy Verified 12/26/19 07:50 Home Medications Home Medications Medication Instructions Recorded Confirmed Type atorvastatin 40 mg tablet 40 mg PO QPM 10/23/19 12/26/19 History fluticasone propionate 50 2 sprays INTNAS TID PRN 10/23/19 12/07/19 History mcg/actuation nasal spray,suspension glimepiride 4 mg tablet 4 mg PO BID tab 10/23/19 12/07/19 History losartan 100 1 tab PO QAM 10/23/19 12/07/19 History mg-hydrochlorothiazide 12.5 mg tablet meloxicam 7.5 mg tablet 7.5 mg PO BID 10/23/19 12/07/19 History metformin 1,000 mg tablet 1,000 mg PO BID 10/23/19 12/07/19 History gabapentin 300 mg capsule 300 mg PO QID #360 cap 11/14/19 12/26/19 Rx Proaxil 1 tab PO QAM 12/07/19 12/07/19 History allopurinol 300 mg PO QAM 12/07/19 12/26/19 History amlodipine 10 mg PO QAM 12/07/19 12/26/19 History aspirin [Aspir-81] 81 mg PO QAM 12/07/19 12/26/19 History coQ10 (ubiquinol) 200 mg PO QAM 12/07/19 12/07/19 History multivitamin [Psz-Jsxitf-Oqays] 1 tab PO QAM 12/07/19 12/07/19 History turmeric root extract 500 mg PO QAM 12/07/19 12/07/19 History Patient History Medical History Cervical fusion syndrome C3-7- NECK EXTENSION SIGNIFICANTLY DECREASED Chronic sinusitis Stable CKD (chronic kidney disease) Mild Diabetes Well controlled and stable per patient Dyslipidemia Gout No recent flares Hypertension Incontinence Urinary- well controlled with supplements Peripheral neuropathy Possible per patient- to LEs 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- no visual issues at this time Surgical History History of arthroscopy RIGHT History of cataract surgery R/L History of colonoscopy History of repair of rotator cuff RIGHT Hx of spinal fusion Hx of total knee replacement RIGHT Family History Mother Family history of diabetes mellitus Family hx of colon cancer Sister Family history of diabetes mellitus Other Diabetes Stroke Social History (Updated 10/23/19 @ 14:45 by Radha Worthington RN) Smoking Status: Former smoker Smoking End Date: QUIT 30 YRS AGO; Second Hand Exposure: Yes (FATHER SMOKED); Do You Dip or Chew Tobacco: Yes (20 CANS A MONTH); Hx Alcohol Use: Yes Alcohol type: beer Hx Substance Use: No Preferred Language: Maori Communication Ability: Effective Visual Impairment: No Limitations Hearing Ability: Hard of Hearing Math Tutor Required: No Beliefs That Will Affect Care: None marital status: Current Living Situation: Spouse current occupational status: retired Other Information That Helps Us Care for You: No Feels Safe at Home: Yes Safety Concerns: Feels Safe At This Time Review of Systems Review of Systems: All systems reviewed & are unremarkable except as noted in HPI & below Physical Exam Physical Exam: General- oriented x 3, not in distress, speaks in sentences with no effort or accessory muscle use Head- atraumatic Eyes- PERRL, EOMI, anicteric ENT- oropharynx clear Neck- supple, no JVD, no adenopathy, no thyromegaly; carotids +2/2, no bruits appreciated Lungs- clear to auscultation bilaterally, no rales/wheezes Heart- normal rate, regular rhythm; no murmur, no gallop, no rub appreciated Abdomen- normal bowel sounds, nondistended, soft, nontender, no masses or hepatosplenomegaly Extremities- no pretibial edema, no calf tenderness; peripheral pulses intact Neuro- alert, oriented x 3; CN 2-12 grossly intact; motor 5/5 bilate rally;sensation 100% on all extremities; no other gross focal neurologic deficits Skin- warm & dry Results & Data ([facility]) Vital Signs (Past 12 Hours) Vital Signs Temp Pulse Pulse Resp BP BP Pulse Ox 12/26/19 16:42 36.5 C 83 16 123/75 99 12/26/19 16:13 36.5 C 68 16 116/74 97 12/26/19 15:45 36.6 C 67 12 113/68 99 12/26/19 15:20 36.9 C 67 12 112/65 97 12/26/19 15:10 68 12 104/60 100 12/26/19 15:00 36.6 C 67 15 105/65 97 12/26/19 14:50 65 12 124/78 100 12/26/19 14:40 68 12 108/63 95 12/26/19 14:30 65 12 116/61 99 12/26/19 14:20 73 12 103/65 98 12/26/19 14:10 74 15 112/61 100 12/26/19 14:01 37.1 C 75 19 122/74 100 12/26/19 08:34 68 18 116/74 97 12/26/19 07:46 36.7 C 66 18 158/77 H 97 Laboratory Results Laboratory Results - last 24 hr 12/26/19 12/26/19 12/26/19 07:39 08:00 13:15 Hgb POC Hgb 10.9 L Hct POC Hct 32 L POC Sodium 138 POC Potassium 5.0 POC Chloride 103 POC Total CO2 27 POC Anion Gap 15.0 L POC BUN 29 H POC Creatinine 1.3 POC Glucose 156 H POC Glucose (other) 175 H POC Ioniz Calcium Berkley 1.19 Blood Type A Positive Antibody Screen NEGATIVE Crossmatch See Detail 12/26/19 12/26/19 12/26/19 13:16 14:04 14:42 Hgb 11.0 L 10.4 L POC Hgb Hct 31.9 L 30.7 L POC Hct POC Sodium POC Potassium POC Chloride POC Total CO2 POC Anion Gap POC BUN POC Creatinine POC Glucose 189 H POC Glucose (other) POC Ioniz Calcium Berkley Blood Type Antibody Screen Crossmatch 12/26/19 17:07 Hgb POC Hgb Hct POC Hct POC Sodium POC Potassium POC Chloride POC Total CO2 POC Anion Gap POC BUN POC Creatinine POC Glucose 241 H POC Glucose (other) POC Ioniz Calcium Berkley Blood Type Antibody Screen Crossmatch
[2019-12-26] MEDS: CEFAZOLIN 2000MG 2,000 MG/15 ML SYR IV SCH (17:27)
[2019-12-26] MEDS: INSULIN ASPART 100 UNITS/ML 3 ML PEN SC SCH ×2 (17:32→20:57)
[2019-12-26] MEDS ORDERED: NovoLIN-N (NPH) PER UNIT CHARGE SQ ONE (18:00)
[2019-12-26] MEDS: DOCUSATE SODIUM/SENNA 50/8.6MG TAB PO SCH (20:11)
[2019-12-26] MEDS: ATORVASTATIN 40 MG TAB PO SCH (20:12)
[2019-12-26 20:27] LABS: Hematocrit (blood only) 31.7 % (42-52); Hemoglobin 10.8 g/dL (14.0-18.0)
[2019-12-26] MEDS ORDERED: GLIMEPIRIDE 2 MG TAB PO SCH (21:00)
[2019-12-27] MEDS: CEFAZOLIN 2000MG 2,000 MG/15 ML SYR IV SCH (02:19)
[2019-12-27] MEDS: SODIUM CHLORIDE 0.9% 1000ML 1,000 ML IV SCH ×2 (02:23→16:18)
[2019-12-27] MEDS: POLYETHYLENE (MIRALAX) 17 GM PACK PO SCH ×4 (05:57→23:33)
[2019-12-27 06:20] LABS: Hemoglobin 9.3 g/dL (14.0-18.0); Immature Granulocytes # (auto) 0.02 K/uL (0.00-0.02); Immature Granulocytes % (auto) 0.1 %; Lymphocytes # (auto) 1.36 K/uL (1.2-3.4); Lymphocytes % (auto) 10.1 %; Mean Corpuscular Hemoglobin 31.5 pg (25-34); Mean Corpuscular Hgb Conc 33.2 g/dL (32-36); Mean Corpuscular Volume 94.9 fL (80-100); Mean Platelet Volume 12.3 fL (7.4-10.4); Monocytes # (auto) 0.94 K/uL (0.11-0.59); Neutrophils # (auto) 11.14 K/uL (1.4-6.5); Neutrophils % (auto) 82.8 %; Platelet Count 170 K/uL (130-400); RDW Coefficient of Variation 13.1 % (11.5-14.5); RDW Standard Deviation 45.7 fL (36.4-46.3); Red Blood Count 2.95 M/uL (4.7-6.1); White Blood Count 13.46 K/uL (4.8-10.8)
[2019-12-27 06:47] LABS: BUN Creatinine Ratio 18.9 (10-20); Calcium 8.6 mg/dl (8.5-10.1); Creatinine Clr Calc Pharmacy 61.2 ml/min; Est GFR (African American) 62.8; Est GFR (Non-African American) 54.2; Potassium 3.9 mmol/L (3.5-5.1)
[2019-12-27 07:01] LABS: Estimated Average Glucose 157 mg/dl; Hemoglobin A1C 7.1 % (4.5-5.6)
[2019-12-27] MEDS: GABAPENTIN 300 MG CAP PO SCH ×4 (08:51→21:15)
[2019-12-27] MEDS: MULTIVITAMIN TAB PO SCH (08:51)
[2019-12-27] MEDS: ASPIRIN 81 MG ECTAB PO SCH (08:51)
[2019-12-27] MEDS: allopurinoL 300 MG TAB PO SCH (08:52)
[2019-12-27] MEDS: AMLODIPINE BESYLATE 5 MG TAB PO SCH (08:52)
[2019-12-27] MEDS: INSULIN ASPART 100 UNITS/ML 3 ML PEN SC SCH ×4 (08:55→21:14)
[2019-12-27] MEDS ORDERED: hydroCHLOROthiazide 25 MG TAB PO SCH (09:00)
[2019-12-27] MEDS ORDERED: LOSARTAN POTASSIUM 50 MG TAB PO SCH (09:00)
[2019-12-27] MEDS ORDERED: NON-FORMULARY MEDICATION (Coq10 (Ubiquinol) 200 MG) PO SCH (09:00)
--- NOTE | 2019-12-27 09:48 | Orthopedic Progress Note ---
Date of Service December 27, 2019 Assessment & Plan (1) Neurogenic claudication due to lumbar spinal stenosis: Admission and Anticipated Discharge Date Admission Date: December 26, 2019 At this time initiate physical therapy occupational therapy advance his pro gressively discharge home this weekend. Subjective Pain controlled leg symptoms improved Physical Exam Physical Exam: Patient is in the chair at the bedside is good strength testing was comfortable. Results & Data ([facility]) Vital Signs (Past 12 Hours) Vital Signs Temp Pulse Resp BP Pulse Ox 12/27/19 07:40 36.8 C 85 16 134/90 97 12/27/19 02:54 36.3 C L 63 16 114/67 97 12/26/19 23:29 36.5 C 64 16 117/72 99
--- NOTE | 2019-12-27 10:25 | Pharmacy Report ---
Glycemic Control Consultation - Date of Service December 27, 2019 - Scope Scope: Glycemic Pharmacist consulted for glycemic control and to write orders per [facility] inpatient glycemic control protocol. - Objective Weight: 96.8 kg Accuchecks BSG (last 24hrs): Laboratory Data (last 24hrs): 12/27/19 05:30 Potassium 3.9 Carbon Dioxide 27 Anion Gap 8.0 Creatinine 1.33 Est Cr Clr Drug Dosing 61.2 HbA1c: Hemoglobin A1c 7.1 % (4.5-5.6) H 12/27/19 05:30 - Recent Pertinent Medications Outpatient Anti-diabetic Regimen: * Metformin 1000 mg PO BIDM + Glimepiride 4 mg PO BIDM * A1c = 7.1% (12/27/2019) Risk Factors for Insulin Resistance: * Steroids: * 12 mg IV Dexamethasone x 1 * Recent Surgery: * POD #1 s/p lumbar decompression/fusion * Diet: * T2DM - Assessment & Plan Assessment & Plan: ASSESSMENT: * 69 yo M admitted s/p lumbar decompression/fusion. Pharmacy is consulted for inpatient glycemic management. Outpatient A1c demonstrates good control of T2DM on two oral agents. * Pre-operative BSG was elevated at 156 mg/dL. Post-operative BSG was 189 mg/dL. BSGs continued to trend up throughout the evenin-243 mg/dL. This is likely due to IV Dexamethasone dose and stress of surgery. * Patient received 25 units of NPH with dinner last evening and was started on Novolog based on a weight and stress of 2. * Fasting BSG this AM is well controlled at 121 mg/dL. As steroids wear off today, do not expect patient will require any further basal insulin. * Lunchtime BSG increased to 201 mg/dL today. Likely due to late dose of Novolog this AM. Will tighten CF/CR slightly. PLAN FOR INPATIENT GLYCEMIC CONTROL: * Holding outpatient oral diabetes medications * Basal insulin * NPH 25 units x 1 (last evening) * Bolus insulin - tightened * NovoLog per scale ACHS or Q6hrs while NPO * Goal Range: Low 110 mg/dL - High 140 mg/dL * Correction Factor: 20 mg/dL/unit * Nutritional / Prandial insulin per carb ratio of 1 unit per 7 grams CHO consumed * Please note that the plan above was derived based on current level of insulin resistance and hospital stress. These recommendations are appropriate for inpatient admission only. Plan of care upon discharge will need to be reassessed to avoid potential outpatient hypo/hyperglycemia. Thank you.
[2019-12-27] MEDS: ACETAMINOPHEN 500 MG TAB PO PRN ×2 (11:49→19:37)
--- NOTE | 2019-12-27 18:28 | Hospitalist Progress Note ---
Date of Service December 27, 2019 Assessment & Plan (1) Neurogenic claudication due to lumbar spinal stenosis: 69-year-old male with history of diabetes, hypertension, dyslipidemia, gout, presented with lumbar spine Decompression and fusion today. Status post lumbar spine decompression and fusion Patient stable overall Monitor hemoglobin and blood pressure as noted below Anemia secondary to acute blood loss secondary to surgery Hemoglobin now 9 Monitor hemoglobin Transfuse as needed for hemoglobin below 7 Diabetes type 2 Usually on glimepiride and metformin Hold glimepiride and metformin, insulin sliding scale ordered Pharmacy glycemic control consult Hypertension Blood pressure on the low side Start IV NSS Hold amlodipine, losartan, HCTZ Dyslipidemia Continue Lipitor Gout Continue allopurinol Thank you for this consultation. We will follow the patient with you during their hospital stay. You can reach a member of the [facility]/11 via pager @ [phone]. Admission and Anticipated Discharge Date Admission Date: December 26, 2019 Subjective Follow-up for status post back surgery Seen resting in bed, comfortable, oriented x 3, very pleasant States he feels fine overall Back pain well controlled Denies chest pain, palpitations, dizziness, shortness of breath Ambulating with no problems No other symptoms Review of Systems Review of Systems: All systems reviewed & are unremarkable except as noted in HPI & below Physical Exam Physical Exam: General- oriented x 3, not in distress, speaks in sentences with no effort or accessory muscle use Eyes- anicteric Neck- no JVD Lungs- clear breath sounds bilaterally, no rales/wheezes Heart- normal rate, regular rhythm; no murmurs Abdomen- normal bowel sounds, nondistended, soft, nontender Extremities- no pretibial edema, no calf tenderness Neuro- alert, oriented x 3; no gross focal neurologic deficits Skin- warm & dry Results & Data Results & Data ([facility]) Vital Signs (Past 12 Hours) Vital Signs Temp Pulse Pulse Resp BP BP Pulse Ox 12/27/19 15:24 99/67 L 12/27/19 15:21 36.8 C 80 20 92/60 L 99 12/27/19 12:07 36.7 C 78 16 93/56 L 98 12/27/19 07:40 36.8 C 85 16 134/90 97 Laboratory Results Laboratory Results - last 24 hr 12/26/19 12/26/19 12/27/19 20:20 20:40 05:30 WBC 13.46 H RBC 2.95 L Hgb 10.8 L 9.3 L Hct 31.7 L 28.0 L MCV 94.9 MCH 31.5 MCHC 33.2 RDW Std Deviation 45.7 RDW Coeff of Baljinder 13.1 Plt Count 170 MPV 12.3 H Immature Gran % (Auto) 0.1 Neut % (Auto) 82.8 Lymph % (Auto) 10.1 [place] % (Auto) 7.0 Eos % (Auto) 0.0 Baso % (Auto) 0.0 Neut # (Auto) 11.14 H Lymph # (Auto) 1.36 [place] # (Auto) 0.94 H Eos # (Auto) 0.00 Baso # (Auto) 0.00 Immature Gran # (Auto) 0.02 Sodium Potassium Chloride Carbon Dioxide Anion Gap BUN Creatinine Est Cr Clr Drug Dosing Est GFR ( Amer) Est GFR (Non-Af Amer) BUN/Creatinine Ratio Glucose POC Glucose 243 H Estimat Average Glucose Hemoglobin A1c Calcium Hepatitis C Ab Screen 12/27/19 12/27/19 12/27/19 05:30 05:30 05:30 WBC RBC Hgb Hct MCV MCH MCHC RDW Std Deviation RDW Coeff of Baljinder Plt Count MPV Immature Gran % (Auto) Neut % (Auto) Lymph % (Auto) [place] % (Auto) Eos % (Auto) Baso % (Auto) Neut # (Auto) Lymph # (Auto) [place] # (Auto) Eos # (Auto) Baso # (Auto) Immature Gran # (Auto) Sodium 142 Potassium 3.9 Chloride 107 Carbon Dioxide 27 Anion Gap 8.0 BUN 25 H Creatinine 1.33 Est Cr Clr Drug Dosing 61.2 Est GFR ( Amer) 62.8 Est GFR (Non-Af Amer) 54.2 BUN/Creatinine Ratio 18.9 Glucose 113 H POC Glucose Estimat Average Glucose 157 Hemoglobin A1c 7.1 H Calcium 8.6 Hepatitis C Ab Screen Neg 12/27/19 12/27/19 12/27/19 07:58 12:03 17:20 WBC RBC Hgb Hct MCV MCH MCHC RDW Std Deviation RDW Coeff of Baljinder Plt Count MPV Immature Gran % (Auto) Neut % (Auto) Lymph % (Auto) [place] % (Auto) Eos % (Auto) Baso % (Auto) Neut # (Auto) Lymph # (Auto) [place] # (Auto) Eos # (Auto) Baso # (Auto) Immature Gran # (Auto) Sodium Potassium Chloride Carbon Dioxide Anion Gap BUN Creatinine Est Cr Clr Drug Dosing Est GFR ( Amer) Est GFR (Non-Af Amer) BUN/Creatinine Ratio Glucose POC Glucose 121 H 201 H 168 H Estimat Average Glucose Hemoglobin A1c Calcium Hepatitis C Ab Screen
[2019-12-27] MEDS: DOCUSATE SODIUM/SENNA 50/8.6MG TAB PO SCH (21:15)
[2019-12-27] MEDS: ATORVASTATIN 40 MG TAB PO SCH (21:16)
[2019-12-28] MEDS: SODIUM CHLORIDE 0.9% 1000ML 1,000 ML IV SCH (02:12)
[2019-12-28] MEDS: POLYETHYLENE (MIRALAX) 17 GM PACK PO SCH ×4 (05:50→23:52)
[2019-12-28] MEDS: ASPIRIN 81 MG ECTAB PO SCH (08:53)
[2019-12-28] MEDS: allopurinoL 300 MG TAB PO SCH (08:53)
[2019-12-28] MEDS: MULTIVITAMIN TAB PO SCH (08:53)
[2019-12-28] MEDS: GABAPENTIN 300 MG CAP PO SCH ×4 (08:54→21:15)
[2019-12-28] MEDS ORDERED: LANTUS PER UNIT CHARGE SQ ONE (09:00)
[2019-12-28] MEDS: INSULIN ASPART 100 UNITS/ML 3 ML PEN SC SCH ×4 (09:18→21:16)
--- NOTE | 2019-12-28 09:26 | Pharmacy Report ---
Pharmacy Glycemic Short Note 2 - Date of Service December 28, 2019 - Glycemic Short BSG Results (Last 24 hours): OUTPATIENT ANTIDIABETIC REGIMEN: * Metformin 1000 mg PO BIDM + Glimepiride 4 mg PO BIDM * A1c = 7.1% (12/27/2019) ASSESSMENT: 12/27: * BSGs poorly controlled yesterday: [phone] mg/dL * Received 33 units of insulin yesterday (all bolus) * Novolog parameters were tightened yesterday * Fasting BSG this AM was 171 mg/dL * Given fasting and rise in BSGs throughout the day yesterday, believe the patient is basal deficient * Will add a one time dose of basal insulin (0.15 units/kg) * Lunchtime BSG was 206 mg/dL * Will tighten CF/CR 12/26: * 69 yo M admitted s/p lumbar decompression/fusion. Pharmacy is consulted for inpatient glycemic management. Outpatient A1c demonstrates good control of T2DM on two oral agents. * Pre-operative BSG was elevated at 156 mg/dL. Post-operative BSG was 189 mg/dL. BSGs continued to trend up throughout the evenin-243 mg/dL. This is likely due to IV Dexamethasone dose and stress of surgery. * Patient received 25 units of NPH with dinner last evening and was started on Novolog based on a weight and stress of 2. * Fasting BSG this AM is well controlled at 121 mg/dL. As steroids wear off today, do not expect patient will require any further basal insulin. * Lunchtime BSG increased to 201 mg/dL today. Likely due to late dose of Novolog this AM. Will tighten CF/CR slightly. PLAN FOR INPATIENT GLYCEMIC CONTROL: * Hold outpatient oral diabetes medications * Basal insulin - increased * Lantus 15 units SQ qAM x 1 * Bolus insulin - tightened CF/CR * NovoLog per scale ACHS or Q6hrs while NPO * Goal Range: Low 110 mg/dL - High 140 mg/dL * Correction Factor: 15 mg/dL/unit * Nutritional / Prandial insulin per carb ratio of 1 unit per 5 grams CHO consumed PLAN FOR DISCHARGE: * A1c from this admission was 7.1% * Goal A1c for this patient would ideally be < 7% * Recommend continuing outpatient regimen of metformin + glimepiride and close follow-up with PCP
[2019-12-28 11:28] LABS: Basophils # (auto) 0.04 K/uL (0-0.2); Basophils % (auto) 0.3 %; Eosinophils # (auto) 0.09 K/uL (0-0.5); Eosinophils % (auto) 0.7 %; Hematocrit (blood only) 28.6 % (42-52); Hemoglobin 9.3 g/dL (14.0-18.0); Immature Granulocytes # (auto) 0.04 K/uL (0.00-0.02); Immature Granulocytes % (auto) 0.3 %; Lymphocytes # (auto) 1.92 K/uL (1.2-3.4); Lymphocytes % (auto) 14.4 %; Mean Corpuscular Hemoglobin 31.5 pg (25-34); Mean Corpuscular Hgb Conc 32.5 g/dL (32-36); Mean Corpuscular Volume 96.9 fL (80-100); Mean Platelet Volume 12.2 fL (7.4-10.4); Monocytes # (auto) 1.34 K/uL (0.11-0.59); Monocytes % (auto) 10.1 %; Neutrophils # (auto) 9.86 K/uL (1.4-6.5); Neutrophils % (auto) 74.2 %; Platelet Count 187 K/uL (130-400); RDW Coefficient of Variation 13.5 % (11.5-14.5); RDW Standard Deviation 47.7 fL (36.4-46.3); Red Blood Count 2.95 M/uL (4.7-6.1); White Blood Count 13.29 K/uL (4.8-10.8)
--- NOTE | 2019-12-28 11:33 | Orthopedic Progress Note ---
Date of Service December 28, 2019 Assessment & Plan (1) Neurogenic claudication due to lumbar spinal stenosis: Admission and Anticipated Discharge Date Admission Date: December 26, 2019 Patient is doing well. We will continue with physical therapy. Monitor his ZHANNA output. Expect discharge home this weekend. Subjective Back pain controlled leg symptoms improved Physical Exam Physical Exam: Patient is good strength testing appears comfortable Results & Data ([facility]) Vital Signs (Past 12 Hours) Vital Signs Temp Pulse Resp BP Pulse Ox 12/28/19 07:50 37.2 C 81 18 122/81 99
--- NOTE | 2019-12-28 19:07 | XRay Report ---
XR chest 1V portable CLINICAL HISTORY: fever, r/o pneumonia COMPARISON STUDY: Chest radiograph December 13, 2019. FINDINGS: Lung volumes are at the lower limits of normal. No consolidation is identified. Minimal lef t basilar opacity favors atelectasis. There is no evidence for pulmonary edema. Lumbar spine fusion h ardware is partially imaged. Cardiomediastinal silhouette is unremarkable. No pneumothorax or pleural effusion is identified. IMPRESSION: No acute cardiopulmonary findings. ACT 112: Negative or not required by law. Electronically signed by: Scott Zhu M.D. 12/28/2019 7:06 PM
[2019-12-28] MEDS: ACETAMINOPHEN 500 MG TAB PO PRN (19:14)
[2019-12-28] MEDS ORDERED: bisacodyL 10 MG SUPP PR STA (19:41)
--- NOTE | 2019-12-28 19:41 | Hospitalist Progress Note ---
Date of Service December 28, 2019 Assessment & Plan (1) Neurogenic claudication due to lumbar spinal stenosis: 69-year-old male with history of diabetes, hypertension, dyslipidemia, gout, presented with lumbar spine Decompression and fusion today. Status post lumbar spine decompression and fusion Positive fever episode, management noted below Monitor hemoglobin and blood pressure as noted below Fever No clear focus of infection at this time Chest x-ray: No pneumonia Blood cultures: Pending Wound culture: Pending Urged to use incentive spirometry, drink plenty of water From constipation?, will order Dulcolax suppository and milk of magnesium Anemia secondary to acute blood loss secondary to surgery Hemoglobin now 9 Monitor hemoglobin Transfuse as needed for hemoglobin below 7 Diabetes type 2 Usually on glimepiride and metformin Hold glimepiride and metformin, insulin sliding scale ordered Pharmacy glycemic control consult Hypertension Blood pressure on the low side, given IV NSS, blood pressure now improved For now, hold amlodipine, losartan, HCTZ to prevent hypotension Dyslipidemia Continue Lipitor Gout Continue allopurinol Thank you for this consultation. We will follow the patient with you during their hospital stay. You can reach a member of the [facility] Hospitalist Team 08/11 via pager @ [phone]. Admission and Anticipated Discharge Date Admission Date: December 26, 2019 Subjective Follow-up status post back surgery Noted temperature of 39 degrees this afternoon Seen resting in bed, watching TV, comfortable, in good spirits States he feels fine overall Pain on his back is 1 out of 10 Denies headache, dizziness, shortness of breath, cough, sputum production, abdominal pain, nausea vomiting, problems with urination No BM since admission Denies other symptoms Review of Systems Review of Systems: All systems reviewed & are unremarkable except as noted in HPI & below Physical Exam Physical Exam: General- oriented x 3, not in distress, speaks in sentences with no effort or accessory muscle use Eyes- anicteric Neck- no JVD Lungs- clear breath sounds, no crackles, no wheezing bilaterally Heart- normal rate, regular rhythm; no murmurs Abdomen- normal bowel sounds, nondistended, soft, nontender Extremities- no pretibial edema, no calf tenderness Neuro- alert, oriented x 3; no gross focal neurologic deficits Skin- warm & dry Results & Data Results & Data ([facility]) Vital Signs (Past 12 Hours) Vital Signs Temp Pulse Resp BP BP Pulse Ox 12/28/19 19:14 38.5 C H 12/28/19 18:22 37.7 C H 12/28/19 18:21 39 C H 12/28/19 15:09 37.6 C H 72 16 124/75 98 12/28/19 07:50 37.2 C 81 18 122/81 99 Laboratory Results Laboratory Results - last 24 hr 12/27/19 12/28/19 12/28/19 20:20 08:14 11:09 WBC 13.29 H RBC 2.95 L Hgb 9.3 L Hct 28.6 L MCV 96.9 MCH 31.5 MCHC 32.5 RDW Std Deviation 47.7 H RDW Coeff of Baljinder 13.5 Plt Count 187 MPV 12.2 H Immature Gran % (Auto) 0.3 Neut % (Auto) 74.2 Lymph % (Auto) 14.4 [place] % (Auto) 10.1 Eos % (Auto) 0.7 Baso % (Auto) 0.3 Neut # (Auto) 9.86 H Lymph # (Auto) 1.92 [place] # (Auto) 1.34 H Eos # (Auto) 0.09 Baso # (Auto) 0.04 Immature Gran # (Auto) 0.04 H POC Glucose 174 H 171 H 12/28/19 12/28/19 12:07 17:09 WBC RBC Hgb Hct MCV MCH MCHC RDW Std Deviation RDW Coeff of Baljinder Plt Count MPV Immature Gran % (Auto) Neut % (Auto) Lymph % (Auto) [place] % (Auto) Eos % (Auto) Baso % (Auto) Neut # (Auto) Lymph # (Auto) [place] # (Auto) Eos # (Auto) Baso # (Auto) Immature Gran # (Auto) POC Glucose 206 H 158 H
[2019-12-28] MEDS: DOCUSATE SODIUM/SENNA 50/8.6MG TAB PO SCH (21:15)
[2019-12-28] MEDS: ATORVASTATIN 40 MG TAB PO SCH (21:16)
[2019-12-29] MEDS: ACETAMINOPHEN 500 MG TAB PO PRN (04:15)
[2019-12-29] MEDS: ASPIRIN 81 MG ECTAB PO SCH (08:52)
[2019-12-29] MEDS: DEXAMETHASONE SOD PHOSPHATE 8 MG in SYRINGE 0 ML IV SCH (08:52)
[2019-12-29] MEDS: MULTIVITAMIN TAB PO SCH (08:52)
[2019-12-29] MEDS: allopurinoL 300 MG TAB PO SCH (08:52)
[2019-12-29] MEDS: GABAPENTIN 300 MG CAP PO SCH ×4 (08:53→21:04)
[2019-12-29] MEDS: INSULIN ASPART 100 UNITS/ML 3 ML PEN SC SCH ×4 (08:54→21:05)
[2019-12-29] MEDS ORDERED: NovoLIN-N (NPH) PER UNIT CHARGE SQ ONE (09:00)
[2019-12-29] MEDS ORDERED: HumuLIN N 10 ML VIAL SC SCH (09:00)
[2019-12-29 09:23] LABS: Basophils # (auto) 0.04 K/uL (0-0.2); Basophils % (auto) 0.4 %; Eosinophils # (auto) 0.21 K/uL (0-0.5); Hematocrit (blood only) 26.3 % (42-52); Hemoglobin 9.1 g/dL (14.0-18.0); Immature Granulocytes # (auto) 0.03 K/uL (0.00-0.02); Immature Granulocytes % (auto) 0.3 %; Lymphocytes # (auto) 2.24 K/uL (1.2-3.4); Lymphocytes % (auto) 21.6 %; Mean Corpuscular Hemoglobin 33.1 pg (25-34); Mean Corpuscular Hgb Conc 34.6 g/dL (32-36); Mean Corpuscular Volume 95.6 fL (80-100); Monocytes # (auto) 0.77 K/uL (0.11-0.59); Monocytes % (auto) 7.4 %; Neutrophils # (auto) 7.08 K/uL (1.4-6.5); Neutrophils % (auto) 68.3 %; Platelet Count 172 K/uL (130-400); RDW Coefficient of Variation 13.1 % (11.5-14.5); RDW Standard Deviation 45.4 fL (36.4-46.3); Red Blood Count 2.75 M/uL (4.7-6.1); White Blood Count 10.37 K/uL (4.8-10.8)
[2019-12-29 09:58] LABS: Calcium 8.3 mg/dl (8.5-10.1); Creatinine Clr Calc Pharmacy 65.6 ml/min; Est GFR (African American) 68.3; Est GFR (Non-African American) 58.9
--- NOTE | 2019-12-29 10:10 | Orthopedic Progress Note ---
Date of Service December 29, 2019 Assessment & Plan (1) Neurogenic claudication due to lumbar spinal stenosis: Admission and Anticipated Discharge Date Admission Date: December 26, 2019 We will continue physical therapy today monitor ZHANNA output advance his bowel actively discharge home tomorrow. Subjective Back pain controlled leg pain improved has not had a bowel movement as this time. Physical Exam Physical Exam: On exam is up and ambulating good strength testing. Results & Data ([facility]) Vital Signs (Past 12 Hours) Vital Signs Temp Pulse Resp BP BP Pulse Ox 12/29/19 08:00 37.0 C 71 18 134/84 100 12/28/19 23:24 37.0 C 73 16 120/71 97
[2019-12-29] MEDS: AMLODIPINE BESYLATE 5 MG TAB PO SCH (12:52)
--- NOTE | 2019-12-29 15:19 | Pharmacy Report ---
Pharmacy Glycemic Short Note 2 - Date of Service December 29, 2019 - Glycemic Short BSG Results (Last 24 hours): 12/28/19 12/28/19 12/29/19 17:09 20:56 08:20 Glucose POC Glucose 158 H 177 H 171 H 12/29/19 12/29/19 09:05 12:11 Glucose 179 H POC Glucose 216 H OUTPATIENT ANTIDIABETIC REGIMEN: * Metformin 1000 mg PO BIDM + Glimepiride 4 mg PO BIDM * A1c = 7.1% (12/27/2019) ASSESSMENT: 12/28: * Michael received 49 units of insulin yesterday (15 units of Lantus and 34 units of Novolog) * Lantus was changed to NPH starting this morning after patient was ordered dexamethasone 8 mg IV daily * Post prandial elevation noted, therefore I have tightened Novolog parameters and added overnight checks 12/27: * BSGs poorly controlled yesterday: [phone] mg/dL * Received 33 units of insulin yesterday (all bolus) * Novolog parameters were tightened yesterday * Fasting BSG this AM was 171 mg/dL * Given fasting and rise in BSGs throughout the day yesterday, believe the patient is basal deficient * Will add a one time dose of basal insulin (0.15 units/kg) * Lunchtime BSG was 206 mg/dL * Will tighten CF/CR 12/26: * 69 yo M admitted s/p lumbar decompression/fusion. Pharmacy is consulted for inpatient glycemic management. Outpatient A1c demonstrates good control of T2DM on two oral agents. * Pre-operative BSG was elevated at 156 mg/dL. Post-operative BSG was 189 mg/dL. BSGs continued to trend up throughout the evenin-243 mg/dL. This is likely due to IV Dexamethasone dose and stress of surgery. * Patient received 25 units of NPH with dinner last evening and was started on Novolog based on a weight and stress of 2. * Fasting BSG this AM is well controlled at 121 mg/dL. As steroids wear off today, do not expect patient will require any further basal insulin. * Lunchtime BSG increased to 201 mg/dL today. Likely due to late dose of Novolog this AM. Will tighten CF/CR slightly. PLAN FOR INPATIENT GLYCEMIC CONTROL: * Hold outpatient oral diabetes medications * Basal insulin - increased * NPH 25 units SQ qAM * Bolus insulin - tightened CF/CR * NovoLog per scale ACHS or Q6hrs while NPO * Goal Range: Low 110 mg/dL - High 140 mg/dL * Correction Factor: 12 mg/dL/unit * Nutritional / Prandial insulin per carb ratio of 1 unit per 4 grams CHO consumed PLAN FOR DISCHARGE: * A1c from this admission was 7.1% * Goal A1c for this patient would ideally be < 7% * Recommend continuing outpatient regimen of metformin + glimepiride and close follow-up with PCP
--- NOTE | 2019-12-29 16:28 | Hospitalist Progress Note ---
Date of Service December 29, 2019 Assessment & Plan (1) Neurogenic claudication due to lumbar spinal stenosis: 69-year-old male with history of diabetes, hypertension, dyslipidemia, gout, presented with lumbar spine Decompression and fusion today. Status post lumbar spine decompression and fusion Pain well controlled Management of fever noted below Fever No clear focus of infection at this time Chest x-ray: No pneumonia Blood cultures: Pending Urged to use incentive spirometry, drink plenty of water From constipation?, Patient had 2 bowel movements overnight, continue laxatives Anemia secondary to acute blood loss secondary to surgery Hemoglobin stable 9 Monitor hemoglobin Transfuse as needed for hemoglobin below 7 Diabetes type 2 Usually on glimepiride and metformin Hold glimepiride and metformin, insulin sliding scale ordered Pharmacy glycemic control consult Hypertension Resume amlodipine Hold losartan, HCTZ to prevent hypotension Dyslipidemia Continue Lipitor Gout Continue allopurinol Thank you for this consultation. We will follow the patient with you during their hospital stay. You can reach a member of the [facility] Hospitalist Team 08/11 via pager @ [phone]. Admission and Anticipated Discharge Date Admission Date: December 26, 2019 Subjective Follow-up for status post lumbar spine surgery Afebrile since this morning Sitting up, comfortable, having lunch States he feels fine overall Pain well controlled Denies headache, dizziness, sore throat, shortness of breath, phlegm, abdominal pain, nausea vomiting, diarrhea or problems with urination Positive for nasal pruritus, congestion, postnasal drip, reminiscent of his usual seasonal allergies Denies other symptoms Review of Systems Review of Systems: All systems reviewed & are unremarkable except as noted in HPI & below Physical Exam Physical Exam: General- oriented x 3, not in distress, speaks in sentences with no effort or accessory muscle use Eyes- anicteric Neck- no JVD Lungs- clear breath sounds no crackles, no wheezing bilaterally Heart- normal rate, regular rhythm; no murmurs Abdomen- normal bowel sounds, nondistended, soft, nontender Extremities- no pretibial edema, no calf tenderness Neuro- alert, oriented x 3; no gross focal neurologic deficits Skin- warm & dry Results & Data Results & Data ([facility] [place]) Vital Signs (Past 12 Hours) Vital Signs Temp Pulse Resp BP Pulse Ox 12/29/19 15:20 37 C 90 16 143/81 H 100 12/29/19 08:00 37.0 C 71 18 134/84 100 Laboratory Results Laboratory Results - last 24 hr 12/26/19 12/28/19 12/28/19 07:39 17:09 20:56 WBC RBC Hgb Hct MCV MCH MCHC RDW Std Deviation RDW Coeff of Baljinder Plt Count MPV Immature Gran % (Auto) Neut % (Auto) Lymph % (Auto) [place] % (Auto) Eos % (Auto) Baso % (Auto) Neut # (Auto) Lymph # (Auto) [place] # (Auto) Eos # (Auto) Baso # (Auto) Immature Gran # (Auto) Sodium Potassium Chloride Carbon Dioxide Anion Gap BUN Creatinine Est Cr Clr Drug Dosing Est GFR ( Amer) Est GFR (Non-Af Amer) BUN/Creatinine Ratio Glucose POC Glucose 158 H 177 H Calcium Crossmatch See Detail 12/29/19 12/29/19 12/29/19 08:20 09:05 09:05 WBC 10.37 RBC 2.75 L Hgb 9.1 L Hct 26.3 L MCV 95.6 MCH 33.1 MCHC 34.6 RDW Std Deviation 45.4 RDW Coeff of Baljinder 13.1 Plt Count 172 MPV 12.0 H Immature Gran % (Auto) 0.3 Neut % (Auto) 68.3 Lymph % (Auto) 21.6 [place] % (Auto) 7.4 Eos % (Auto) 2.0 Baso % (Auto) 0.4 Neut # (Auto) 7.08 H Lymph # (Auto) 2.24 [place] # (Auto) 0.77 H Eos # (Auto) 0.21 Baso # (Auto) 0.04 Immature Gran # (Auto) 0.03 H Sodium 139 Potassium 4.0 Chloride 105 Carbon Dioxide 25 Anion Gap 8.0 BUN 19 H Creatinine 1.24 Est Cr Clr Drug Dosing 65.6 Est GFR ( Amer) 68.3 Est GFR (Non-Af Amer) 58.9 BUN/Creatinine Ratio 15.0 Glucose 179 H POC Glucose 171 H Calcium 8.3 L Crossmatch 12/29/19 12:11 WBC RBC Hgb Hct MCV MCH MCHC RDW Std Deviation RDW Coeff of Baljinder Plt Count MPV Immature Gran % (Auto) Neut % (Auto) Lymph % (Auto) [place] % (Auto) Eos % (Auto) Baso % (Auto) Neut # (Auto) Lymph # (Auto) [place] # (Auto) Eos # (Auto) Baso # (Auto) Immature Gran # (Auto) Sodium Potassium Chloride Carbon Dioxide Anion Gap BUN Creatinine Est Cr Clr Drug Dosing Est GFR ( Amer) Est GFR (Non-Af Amer) BUN/Creatinine Ratio Glucose POC Glucose 216 H Calcium Crossmatch
[2019-12-29] MEDS: FLUTICASONE PROPIONATE NA SPR 16 GM BTL SCH (17:21)
[2019-12-29] MEDS: ATORVASTATIN 40 MG TAB PO SCH (21:04)
[2019-12-29] MEDS: DOCUSATE SODIUM/SENNA 50/8.6MG TAB PO SCH (21:04)
[2019-12-29] MEDS ORDERED: INSULIN HUMAN REGULAR PER UNIT 10 UNITS in SYRINGE 9.9 ML IV ONE (21:15)
[2019-12-30] MEDS: INSULIN ASPART 100 UNITS/ML 3 ML PEN SC SCH ×4 (00:08→12:29)
[2019-12-30] MEDS ORDERED: HumuLIN N 10 ML VIAL SC ONE (08:45)
[2019-12-30] MEDS: DEXAMETHASONE SOD PHOSPHATE 8 MG in SYRINGE 0 ML IV SCH (08:49)
[2019-12-30] MEDS: MULTIVITAMIN TAB PO SCH (08:50)
[2019-12-30] MEDS: AMLODIPINE BESYLATE 5 MG TAB PO SCH (08:50)
[2019-12-30] MEDS: ASPIRIN 81 MG ECTAB PO SCH (08:50)
[2019-12-30] MEDS: GABAPENTIN 300 MG CAP PO SCH ×2 (08:50→12:30)
[2019-12-30] MEDS: allopurinoL 300 MG TAB PO SCH (08:50)
[2019-12-30] MEDS: FLUTICASONE PROPIONATE NA SPR 16 GM BTL SCH (08:51)
[2019-12-30] MEDS ORDERED: NovoLIN-N (NPH) PER UNIT CHARGE SQ ONE (09:15)
[2019-12-30] MEDS ORDERED: LOSARTAN POTASSIUM 50 MG TAB PO STA (10:04)
--- NOTE | 2019-12-30 11:18 | Discharge Summary ---
Date of Service December 30, 2019 Admission HPI Per Admitting Provider This is a 69-year-old male who presents with chronic persistent back and bilateral leg pain. After failing course of nonoperative care is here for surgical intervention. Principal Diagnosis Lumbar spinal stenosis with neurogenic claudication Discharge Data Allergies Allergy/AdvReac Type Severity Reaction Status Date / Time No Known Allergies Allergy Verified 12/26/19 07:50 Consultations 12/26/19 15:52 Consult Case Management - Discharge Planning Routine Consult Hospitalist Routine Procedures Performed Operation Date: 12/26/19 09:05 Actual Procedures p L1-S1 Decompression Fusion, T12-S1 Fusion, Spinal Cord Monitoring - Jorge Harvey DO Ordered Studies 12/26/19 09:05 FL fluoroscopy <1hr Routine FL lumbar spine 2-3V Routine Hospital Course (1) Neurogenic claudication due to lumbar spinal stenosis: Patient with lumbar decompression fusion tolerated this well stay to the orthopedic floor possibly. Postop day 1 is up and ambulating progressed throughout his hospital stay ZHANNA drain decreasing probably. Bowels working well. Strength intact. Subsequently discharged home. Discharge orders and instructions on the chart for further review. Total Time Total Time Spent Total Time Spent (In Minutes): 20 minutes Discharge Plan Discharge Items Patient Disposition: Home - Self-Care Reason For Visit: Unspecified Thoracic Thorcolumbar Disc Disorder Discharge Diagnosis: Lumbar spinal stenosis with neurogenic claudication Activity: As commented below Non-emergency contact: Primary Care Provider Call non-emergency contact if: you have any medication questions Follow-up/Referrals: Delores Troncoso CRNP [Primary Care Provider] - Diet: Regular Addtl Attending Provider Instructions: ACTIVITY RECOMMENDATIONS: SELF CARE INSTRUCTIONS AFTER THORACIC/LUMBAR FUSIONS 1. You may walk to your tolerance. It is good exercise for your legs and back. Expect some back and intermittent leg aches and pains. 2. You may perform "counter-top" level activities (make a sandwich, ulices with a project, etc.). 3. No bending or lifting of more than 10 pounds or back twisting of any nature (roll like a log when turning in bed). 4. You may ride in a car for 20-30 minutes at a time. No driving until after your first visit with your doctor. 5. Frequent changes of position and restricting sitting to 30 minutes at a time will help limit the amount of back spasms and stiffness you may experience. 6. You may discontinue the use of ambulatory aids (cane, crutches, etc.) once your strength and confidence allow. 7. You may financial sales assistant the shower and let water strike your incision when you arrive home at least once daily. Do not take a tub bath, sit in a hot tub or go into a swimming pool until after your first recheck in the office. SPECIAL CARE INSTRUCTIONS: VERY IMPORTANT TO READ AND REVIEW A. Your surgical incision has been closed with a cosmetic suture under the skin that will dissolve in about 6 weeks. In 14 days, you can use a pair of clean scissors and cut the suture that is left outside of the skin at the ends of your incision. 1. The small skin tapes can be removed 7 days after surgery if they have not fallen off by that point. 2. You may keep the wound open to air as much as possible to promote healing after post-op day number 5 unless told otherwise by your doctor. 3. If you think the wound looks like it is becoming infected (redness or worsening drainage) and/or you are experiencing fever, chill or worsening back pain and muscle spasms, contact the office so that we may evaluate you as soon as possible. B. Complications are uncommon, but please contact us if you have any signs or symptoms of: 1. wound infection (fever higher than 102.5 degrees F, redness, separation of wound, drainage, or increasing pain from the incision) 2. blood clots in legs (pain, swelling, redness and warmth in legs) 3. urinary tract infection (fever higher than 102.5 degrees F, burning upon urination or increased frequency of urination) 4. nerve problems (inability to walk on your toes or heels, numbness, loss of bowel or bladder control) 5. any other symptoms that concern you C. Please call the office at if you have any concerns or questions about your operation or recovery. D. No smoking! Smoking drastically decreases the chance of a solid fusion. E. Do not take any anti-inflammatory medications (Indocin, Advil, Motrin, Aspirin, Naprosyn, etc.) as these may inhibit the chance of a solid fusion. Tylenol is okay to take for pain. MANAGING PAIN AFTER SPINAL SURGERY 1. Narcotic medication is intended for short-term use and will be provided for surgical pain. Surgical pain usually lasts for a period of 4-6 weeks. Narcotic medication includes Percocet, Vicodin, Darvocet, Tylenol #3 or Lortab. 2. Longer-term pain is more appropriately treated with non-narcotic medication such as Tylenol ES. 3. Muscle spasm is not appropriately treated with narcotics. Muscle relaxers such as Soma, Flexeril or Skelaxin can be used along with Tylenol ES. 4. Remember that we all live with some "aches and pains". This is not unusual or uncommon after an injury or as we get older. a. Back pain is expected and may include muscle spasms for 4 to 6 weeks after surgery. The pain should gradually improve. If the pain worsens for no apparent reason, please contact the office. b. Intermittent leg pain may also be experienced and should not be concerned about unless it worsens for no apparent reason. If so, please contact the office. 5. We will provide appropriate medication within the normal guidelines of their prescribed use. We will also be very cautious and aware of potential abuse and extended duration of patients' medication needs. a. Pain medications are for your comfort and to assist with sleep and rest so that the tissue can heal. They are not provided in order to return to normal activity and should not be used through the day. To do so or worsening pain at night can result from ongoing tissue damage and development of tolerance to the prescribed medicine. 6. Please allow 2-3 days to process refills. Prescriptions will not be mailed but must be picked up at the office. FOLLOW UP VISIT: Keep your scheduled follow-up appointment. Any questions, please call the office at . Pending Studies at Discharge: No Stand-Alone Forms: My [facility] KB Labs, Smoking Cessation Medications and DC Order Prescriptions: New tramadol 50 mg tablet 50 mg PO Q6H PRN (Reason: pain, moderate) Qty: 20 RF: 0 oxycodone 5 mg tablet 5 mg PO Q6H PRN (Reason: pain, severe) Qty: 20 RF: 0 Continued atorvastatin 40 mg tablet 40 mg PO QPM RF: 0 fluticasone propionate 50 mcg/actuation spray,suspension 2 sprays INTNAS TID PRN (Reason: Congestion) RF: 0 glimepiride 4 mg tablet 4 mg PO BID RF: 0 losartan-hydrochlorothiazide 100-12.5 mg tablet 1 tab PO QAM RF: 0 metformin 1,000 mg tablet 1,000 mg PO BID RF: 0 gabapentin 300 mg capsule 300 mg PO QID Qty: 360 RF: 1 aspirin [Aspir-81] 81 mg Tablet,Delayed Release (Dr/Ec) 81 mg PO QAM RF: 0 amlodipine 10 mg Tablet 10 mg PO QAM RF: 0 allopurinol 300 mg Tablet 300 mg PO QAM RF: 0 multivitamin [Prw-[id number]-Ngzqi] Tablet 1 tab PO QAM RF: 0 coQ10 (ubiquinol) 200 mg Capsule 200 mg PO QAM RF: 0 Proaxil 1 tab PO QAM RF: 0 turmeric root extract 500 mg Capsule 500 mg PO QAM RF: 0 Discontinued meloxicam 7.5 mg tablet 7.5 mg PO BID RF: 0 Discharge Orders: Discharge Order (Routine); Ordered 12/30/19 Ordered By: Jorge Franklin/Other Patient Handouts: Managing Type 2 Diabetes Admission Data Admit Date/Time: 12/26/19 14:26 Attending Provider: Jorge Harvey Admit Provider: Jorge Harvey Primary Care Provider: Delores Troncoso Other Providers: Dean Sanderson ; Juan Gayle
--- NOTE | 2019-12-30 16:56 | Hospitalist Progress Note ---
Date of Service December 30, 2019 Assessment & Plan (1) Neurogenic claudication due to lumbar spinal stenosis: 69-year-old male with history of diabetes, hypertension, dyslipidemia, gout, presented with lumbar spine Decompression and fusion today. Status post lumbar spine decompression and fusion Pain well controlled Management of fever noted below Fever Episode Chest x-ray: No pneumonia Blood cultures: negative so far Urged to use incentive spirometry, drink plenty of water From constipation? resolved no recurrence of fever, no focus of infection Anemia secondary to acute blood loss secondary to surgery Hemoglobin stable 9 Monitor hemoglobin Transfuse as needed for hemoglobin below 7 Diabetes type 2 Usually on glimepiride and metformin, continue usual regimen outpatient ff up with PCP Hypertension Resume amlodipine, losartan, HCTZ on discharge Dyslipidemia Continue Lipitor Gout Continue allopurinol Thank you for this consultation. We will follow the patient with you during their hospital stay. You can reach a [facility] via pager @ [phone]. Admission and Anticipated Discharge Date Admission Date: December 26, 2019 Subjective ff up for s/p back surgery seen resting in bedside chair comfortable not in distress, in good spirits states he feels fine overall no headache, dizziness, cough, abdominal pain, problems with BM or urination no chills states he is ready for discharge today Review of Systems Review of Systems: All systems reviewed & are unremarkable except as noted in HPI & below Physical Exam Physical Exam: General- oriented x 3, not in distress, speaks in sentences with no effort or accessory muscle use Eyes- anicteric Neck- no JVD Lungs- clear breath sounds bilaterally no crackles/wheezing Heart- normal rate, regular rhythm; no murmurs Abdomen- normal bowel sounds, nondistended, soft, nontender Extremities- no pretibial edema, no calf tenderness Neuro- alert, oriented x 3; no gross focal neurologic deficits Skin- warm & dry Results & Data Results & Data ([facility]) Vital Signs (Past 12 Hours) Vital Signs Temp Pulse Pulse Pulse Pulse Resp BP 12/30/19 12:39 36.8 C 67 80 86 75 18 120/71 12/30/19 08:26 36.8 C 75 18 BP Pulse Ox 12/30/19 12:39 152/85 H 100 12/30/19 08:26 152/85 H 100
== END 2019-12-30 13:38 | disposition home or self-care (01) | DRG 454 ==
LOC: ASU 07:09 → 3E 14:26

== ENCOUNTER 2020-03-13 19:13 | Inpatient (IN) ==
[2020-03-13] MEDS ORDERED: DEXAMETHASONE SOD INJ 10 MG/ML VIAL IV ONE (19:29)
[2020-03-13] MEDS ORDERED: SODIUM CHLORIDE 0.9% 1000ML 1,000 ML IV SCH ×2 (19:30→23:15)
[2020-03-13 20:25] LABS: Basophils # (auto) 0.01 K/uL (0-0.2); Basophils % (auto) 0.2 %; Hematocrit (blood only) 38.9 % (42-52); Hemoglobin 12.8 g/dL (14.0-18.0); Immature Granulocytes # (auto) 0.01 K/uL (0.00-0.02); Immature Granulocytes % (auto) 0.2 %; Lymphocytes # (auto) 0.77 K/uL (1.2-3.4); Lymphocytes % (auto) 12.2 %; Mean Corpuscular Hgb Conc 32.9 g/dL (32-36); Mean Corpuscular Volume 94.2 fL (80-100); Mean Platelet Volume 12.2 fL (7.4-10.4); Monocytes # (auto) 0.29 K/uL (0.11-0.59); Monocytes % (auto) 4.6 %; Neutrophils # (auto) 5.25 K/uL (1.4-6.5); Neutrophils % (auto) 82.8 %; Platelet Count 204 K/uL (130-400); RDW Coefficient of Variation 13.5 % (11.5-14.5); RDW Standard Deviation 46.7 fL (36.4-46.3); Red Blood Count 4.13 M/uL (4.7-6.1); White Blood Count 6.33 K/uL (4.8-10.8)
[2020-03-13 20:48] LABS: Albumin Level 3.7 gm/dl (3.4-5.0); BUN Creatinine Ratio 15.2 (10-20); Calcium 8.7 mg/dl (8.5-10.1); Creatinine Clr Calc Pharmacy 44.6 ml/min; Est GFR (Non-African American) 37.1; Potassium 4.3 mmol/L (3.5-5.1)
[2020-03-13 20:50] LABS: Albumin Globulin Ratio 0.8 (0.9-2); Bilirubin,Total 0.3 mg/dl (0.2-1); Globulin 4.8 gm/dl (2.5-4.0); Total Protein 8.5 gm/dl (6.4-8.2)
[2020-03-13 22:00] LABS: INR 0.9 (0.9-1.1); Partial Thromboplastin Ratio 1.1; Partial Thromboplastin Time 30.9 Seconds (21.0-31.0); Prothrombin Time 9.9 Seconds (9.0-12.0)
[2020-03-13 22:05] LABS: D Dimer 2230 ug/L FEU (0-500)
[2020-03-13] MEDS ORDERED: HYDROcodone/HOMATROPINE SYRUP 5MG/1.5MG 5ML UDP PO STA (22:21)
--- NOTE | 2020-03-13 23:10 | History & Physical Report ---
Date of Service March 13, 2020 Assessment & Plan (1) Pneumonia due to COVID-19 virus: Pneumonia due to COVID-19 virus with hypoxia and bronchospasm- Decadron 6 mg IV daily Convalescent plasma, consent obtained Remdesivir IV per protocol Ceftriaxone 2 g IV daily Azithromycin 500 mg IV daily Ventolin HFA 2 puffs 4 times daily, and every 2 hours as needed Nasal cannula oxygen, titrate to keep pulse ox around 95%. Patient had recorded lows of pulse ox 87% on room air while in the ED. Present on Admission?: Yes (2) Hypoxia: See above Present on Admission?: Yes (3) Bronchospasm: See above Present on Admission?: Yes (4) Acute kidney injury: Creatinine 1.82 upon admission, baseline 1.24. Hold for losartan/HCTZ, meloxicam and metformin. NSS 100 mils per hour. Repeat laboratories in the a.m. GFR presently is 37.1, which is acceptable for remdesivir Present on Admission?: Yes (5) DM w/o complication type II, uncontrolled: Hold glipizide and Metformin. Placed in Accu-Cheks before meals and at bedtime with NovoLog coverage per scale Present on Admission?: Yes (6) Peripheral neuropathy: Continue gabapentin 300 mg p.o. 4 times daily. Hold meloxicam due to acute kidney injury Present on Admission?: Yes (7) Gout: Continue allopurinol 300 mg daily Present on Admission?: Yes (8) Dyslipidemia: Continue atorvastatin 40 mg every evening Present on Admission?: Yes (9) Bladder mass: History of Present Illness Chief Complaint: The patient presents to the emergency department with complaint of 4 days of cough, shortness of breath, and loss of taste and smell Primary Care Provider: JOHN Rangel The patient is a 69-year-old male with a past medical history including bladder mass, gout, hypertension, bronchospasm, neurogenic claudication due to lumbar spinal stenosis, diabetes mellitus type 2, history of total knee arthroplasty, right middle lobe pneumonia, greater trochanteric bursitis of both hips, peripheral neuropathy and lumbar spinal stenosis. He reports that his is presently hospitalized at [facility], and his daughter is currently hospitalized at [facility], with pneumonia due to COVID-19. The patient was tested in the emergency department this evening, and is positive for COVID-19 infection. In the emergency department he received Decadron 6 mg IV, normal severo ine 1 L, and Hycodan syrup 10 mL p.o. Allergies Allergy/AdvReac Type Severity Reaction Status Date / Time No Known Allergies Allergy Verified 03/13/20 21:41 Home Medications Medication Instructions Recorded Confirmed Type atorvastatin 40 mg tablet 40 mg PO QPM 10/23/19 03/13/20 History fluticasone propionate 50 2 sprays INTNAS DIRECTED PRN 10/23/19 03/13/20 History mcg/actuation nasal spray,suspension losartan 100 1 tab PO QAM 10/23/19 03/13/20 History mg-hydrochlorothiazide 12.5 mg tablet metformin 1,000 mg tablet 1,000 mg PO BID 10/23/19 03/13/20 History gabapentin 300 mg capsule 300 mg PO QID #360 cap 11/14/19 03/13/20 Rx Proaxil 1 tab PO QAM 12/07/19 03/13/20 History allopurinol 300 mg PO QAM 12/07/19 03/13/20 History amlodipine 10 mg PO QAM 12/07/19 03/13/20 History coQ10 (ubiquinol) 200 mg PO QAM 12/07/19 03/13/20 History turmeric root extract 500 mg PO QAM 12/07/19 03/13/20 History aspirin [Aspirin Low Dose] 81 mg PO QAM 03/13/20 03/13/20 History glipizide 2.5 mg PO BID 03/13/20 03/13/20 History meloxicam 7.5 mg PO BID 03/13/20 03/13/20 History multivitamin [One Daily] 1 tab PO QAM 03/13/20 03/13/20 History oxycodone 5 mg PO Q6H PRN 03/13/20 03/13/20 History tramadol 50 mg PO Q6H PRN 03/13/20 03/13/20 History Past Med/Surg History Medical History (Updated 03/14/20 @ 04:32 by Elder Galvez MD) Bronchospasm Cervical fusion syndrome C3-7- NECK EXTENSION SIGNIFICANTLY DECREASED Chronic sinusitis Stable CKD (chronic kidney disease) Mild Diabetes Well controlled and stable per patient Dyslipidemia Gout No recent flares Hypertension Incontinence Urinary- well controlled with supplements Peripheral neuropathy Possible per patient- to LEs 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- no visual issues at this time Surgical History History of arthroscopy RIGHT History of cataract surgery R/L History of colonoscopy History of repair of rotator cuff RIGHT Hx of spinal fusion Hx of total knee replacement RIGHT Family History Mother Family history of diabetes mellitus Family hx of colon cancer Sister Family history of diabetes mellitus Other Diabetes Stroke Social History Smoking Status: Former smoker Second Hand Exposure: Yes (FATHER SMOKED); Hx Alcohol Use: Yes Alcohol type: beer Hx Substance Use: No Preferred Language: Guatemalan Communication Ability: Effective Visual Impairment: No Limitations Hearing Ability: Hard of Hearing Data Reduction Technician Required: No Beliefs That Will Affect Care: None marital status: Current Living Situation: Spouse current occupational status: retired Feels Safe at Home: Yes Assistive Devices: Cane, Glasses and Oxygen - Continuous Review of Systems Review of Systems: The patient denies palpitations, lower extremity swelling, sore throat, fevers, chills, sweats, nausea, vomiting, diarrhea , constipation, abdominal pain, pelvic pain, blood in urine or stool, dysuria, urinary frequency or urgency, memory loss, loss of consciousness, rash, abnormal bruising or bleeding, imbalance, focal weakness, numbness or tingling in arms or legs, back or neck pain, or night sweats. The review of systems is otherwise negative other than for that already noted above, and at least 10 systems have been reviewed. Physical Exam Physical Exam: The patient is awake, alert and oriented 3, well developed and well nourished, normocephalic and atraumatic, lying in bed and in no acute distress. HEENT--PERRL, EOMI, mucous membranes and oropharynx dry. Neck--supple. No JVD. No bruits. Thyroid normal, trachea midline, no adenopathy. Heart--normal S1 and S2. No murmurs, rubs or gallops. Lungs--coarse breath sounds bilaterally. No respiratory distress, no accessory muscle use. Abdomen--normal bowel sounds and soft. Nontender. Nondistended. Extremities--no cyanosis or clubbing. No edema. There are good distal pulses b/l. Dermatologic--normal skin turgor, normal color, no abnormal lymph nodes, no rash. Neurologic--cranial nerves II through XII grossly intact. Rheumatologic--normal range of motion. Psychiatric--normal affect. Results & Data Results & Data ([facility]) Vital Signs (Past 12 Hours) Vital Signs Temp Pulse Resp BP Pulse Ox 03/13/20 22:20 105 H 37 H 87 L 03/13/20 22:10 123 H 88 L 03/13/20 22:01 87 29 H 93 03/13/20 22:00 88 32 H 156/81 H 91 03/13/20 21:50 88 29 H 91 03/13/20 21:40 89 29 H 90 03/13/20 21:31 91 H 22 91 03/13/20 21:30 88 33 H 156/86 H 90 03/13/20 21:20 88 24 91 03/13/20 21:10 89 03/13/20 21:01 87 21 03/13/20 21:00 87 24 170/87 H 92 03/13/20 20:57 98 H 23 03/13/20 20:41 88 03/13/20 20:30 154/79 H 03/13/20 20:20 90 31 H 95 03/13/20 20:13 96 03/13/20 20:10 91 H 29 H 95 03/13/20 20:00 90 28 H 97 03/13/20 19:50 97 H 23 03/13/20 19:42 98 H 37 H 93 03/13/20 19:40 107 H 19 143/75 H 90 03/13/20 19:17 98.4 F 100 H 28 H 182/104 H 92 Laboratory Results Laboratory Results WBC 3.65 K/uL (4.8-10.8) L 03/14/20 02:38 RBC 3.65 M/uL (4.7-6.1) L 03/14/20 02:38 Hgb 11.0 g/dL (14.0-18.0) L 03/14/20 02:38 Hct 33.6 % (42-52) L 03/14/20 02:38 MCV 92.1 fL (80-100) 03/14/20 02:38 MCH 30.1 pg (25-34) 03/14/20 02:38 MCHC 32.7 g/dL (32-36) 03/14/20 02:38 RDW Std Deviation 45.2 fL (36.4-46.3) 03/14/20 02:38 RDW Coeff of Baljinder 13.4 % (11.5-14.5) 03/14/20 02:38 Plt Count 174 K/uL (130-400) 03/14/20 02:38 MPV 11.8 fL (7.4-10.4) H 03/14/20 02:38 Immature Gran % (Auto) 0.3 % 03/14/20 02:38 Neut % (Auto) 86.0 % 03/14/20 02:38 Lymph % (Auto) 12.1 % 03/14/20 02:38 [place] % (Auto) 1.6 % 03/14/20 02:38 Eos % (Auto) 0.0 % 03/14/20 02:38 Baso % (Auto) 0.0 % 03/14/20 02:38 Neut # (Auto) 3.14 K/uL (1.4-6.5) 03/14/20 02:38 Lymph # (Auto) 0.44 K/uL (1.2-3.4) L 03/14/20 02:38 [place] # (Auto) 0.06 K/uL (0.11-0.59) L 03/14/20 02:38 Eos # (Auto) 0.00 K/uL (0-0.5) 03/14/20 02:38 Baso # (Auto) 0.00 K/uL (0-0.2) 03/14/20 02:38 Immature Gran # (Auto) 0.01 K/uL (0.00-0.02) 03/14/20 02:38 ESR 82 mm/hr (0-14) H 03/13/20 20:00 PT 10.5 Seconds (9.0-12.0) 03/14/20 02:38 INR 1.0 (0.9-1.1) 03/14/20 02:38 APTT 34.9 Seconds (21.0-31.0) H 03/14/20 02:38 PTT Ratio 1.3 03/14/20 02:38 D-Dimer 2230 ug/L FEU (0-500) H* 03/13/20 20:00 Sodium 137 mmol/L (136-145) 03/14/20 02:38 Potassium 4.5 mmol/L (3.5-5.1) 03/14/20 02:38 Chloride 108 mmol/L (98-107) H 03/14/20 02:38 Carbon Dioxide 22 mmol/L (21-32) 03/14/20 02:38 Anion Gap 7.0 (3-11) 03/14/20 02:38 BUN 26 mg/dl (7-18) H 03/14/20 02:38 Creatinine 1.47 mg/dl (0.6-1.4) H D 03/14/20 02:38 Est Cr Clr Drug Dosing 54.9 ml/min 03/14/20 02:38 Est GFR ( Amer) 55.6 03/14/20 02:38 Est GFR (Non-Af Amer) 48.0 03/14/20 02:38 BUN/Creatinine Ratio 17.5 (10-20) 03/14/20 02:38 Glucose 261 mg/dl (70-99) H 03/14/20 02:38 Lactate 1.8 mmol/L (0.4-2.0) 03/13/20 20:00 Calcium 7.7 mg/dl (8.5-10.1) L 03/14/20 02:38 Magnesium 1.9 mg/dl (1.8-2.4) 03/14/20 02:38 Total Bilirubin 0.2 mg/dl (0.2-1) 03/14/20 02:38 AST 30 U/L (15-37) 03/14/20 02:38 ALT 21 U/L (12-78) 03/14/20 02:38 Alkaline Phosphatase 98 U/L (45-117) 03/14/20 02:38 Total Protein 7.2 gm/dl (6.4-8.2) 03/14/20 02:38 Albumin 3.0 gm/dl (3.4-5.0) L 03/14/20 02:38 Globulin 4.2 gm/dl (2.5-4.0) H 03/14/20 02:38 Albumin/Globulin Ratio 0.7 (0.9-2) L 03/14/20 02:38 Procalcitonin 0.38 ng/ml (0-0.5) 03/13/20 20:00 COVID-19 Eval Order Covid19 [facility]Now [facility] 03/13/20 20:08 SARS-CoV-2, RNA, NAAT POSITIVE (NEGATIVE) A* 03/13/20 20:08 Blood Type A Positive 03/13/20 22:03 Antibody Screen NEGATIVE 03/13/20 22:03 Code Status & VTE Plan Code Status Full code VTE Prophylaxis Plan VTE Prophylaxis will be ordered: Yes PG Care Time/CCT Total # of Minutes Spent Total Time Spent with Patient: Total time spent is greater than 50% in volunteer coordinator rdination of care (as documented) at patient's floor/unit and/or counseling patient: Coding Level of Care Code 86857 Initial Inpt Care Lvl 3 Diagnoses Pneumonia due to COVID-19 virus U07.1; J12.89 Hypoxia R09.02 Bronchospasm J98.01 Acute kidney injury N17.9 DM w/o complication type II, uncontrolled E11.65 Peripheral neuropathy G62.9 Gout M10.9 Dyslipidemia E78.5 Bladder mass N32.89
[2020-03-13] MEDS ORDERED: ENOXAPARIN 0.5 MG/KG SQ SCH (23:15)
[2020-03-13] MEDS ORDERED: ACETAMINOPHEN 325 MG TAB PO PRN (23:58)
[2020-03-13] MEDS ORDERED: NITROGLYCERIN SL 0.4 MG/TAB TAB SL PRN (23:58)
[2020-03-13] MEDS ORDERED: DEXTROSE 50% 50 ML SYRINGE IV PRN (23:58)
[2020-03-13] MEDS ORDERED: GLUCOSE 10 TABS/TUBE PO PRN (23:58)
[2020-03-13] MEDS ORDERED: traMADol HCL 50 MG TABLET PO PRN (23:58)
[2020-03-13] MEDS ORDERED: CARBOHYDRATES FOR HYPOGLYCEMIA PO PRN (23:58)
[2020-03-13] MEDS ORDERED: GLUCOSE 40% GEL 15 GM TUBE PO PRN (23:58)
[2020-03-13] MEDS ORDERED: ONDANSETRON INJ 2 MG/ML 2 ML VIAL IV PRN (23:58)
[2020-03-13] MEDS ORDERED: GLUCAGON FOR INJ 1 MG VIAL SQ PRN (23:58)
[2020-03-14] MEDS ORDERED: REMDESIVIR 200 MG in SODIUM CHLORIDE 0.9% 210 ML IV STA
[2020-03-14] MEDS ORDERED: oxyCODONE HCL IR 5 MG TAB (IMMEDIATE RELEASE) PO PRN (00:18)
[2020-03-14] MEDS: SODIUM CHLORIDE 0.9% 1000ML 1,000 ML IV SCH ×3 (00:29→20:45)
[2020-03-14] MEDS: cefTRIAXone SODIUM 2,000 MG in DEXTROSE 5% 50 ML IV SCH (00:38)
[2020-03-14] MEDS: SODIUM CHLORIDE 0.9% 10ML FLUSH IV SCH (01:23)
--- NOTE | 2020-03-14 02:17 | Emergency Department Note ---
History of Present Illness General Chief complaint: Flu Like Symptoms Stated complaint: LOSS OF TASTE/ SMELL, COUGH, SOB Source: patient and RN notes reviewed Mode of arrival: ambulatory Limitations: no limitations History of Present Illness Provider complaint: Cough, shortness of breath, loss of taste and smell This patient is a 69-year-old male who presents to the emergency department with complaints of a cough, shortness of breath, loss of taste and smell. He states his is hospitalized in [place] with Covid and is currently intubated. His daughter was admitted yesterday and is apparently Covid positive. He has been dealing with symptoms for about a week and a half but today became more symptomatic with his shortness of breath and coughing. Patient denies any vomiting or diarrhea. He does admit to a fever. He has been using Tylenol occasionally. Patient has been able to drink fluids. Home Medications Medication Instructions Recorded Confirmed Type atorvastatin 40 mg tablet 40 mg PO QPM 10/23/19 03/13/20 History fluticasone propionate 50 2 sprays INTNAS DIRECTED PRN 10/23/19 03/13/20 History mcg/actuation nasal spray,suspension losartan 100 1 tab PO QAM 10/23/19 03/13/20 History mg-hydrochlorothiazide 12.5 mg tablet metformin 1,000 mg tablet 1,000 mg PO BID 10/23/19 03/13/20 History gabapentin 300 mg capsule 300 mg PO QID #360 cap 11/14/19 03/13/20 Rx Proaxil 1 tab PO QAM 12/07/19 03/13/20 History allopurinol 300 mg PO QAM 12/07/19 03/13/20 History amlodipine 10 mg PO QAM 12/07/19 03/13/20 History coQ10 (ubiquinol) 200 mg PO QAM 12/07/19 03/13/20 History turmeric root extract 500 mg PO QAM 12/07/19 03/13/20 History aspirin [Aspirin Low Dose] 81 mg PO QAM 03/13/20 03/13/20 History glipizide 2.5 mg PO BID 03/13/20 03/13/20 History meloxicam 7.5 mg PO BID 03/13/20 03/13/20 History multivitamin [One Daily] 1 tab PO QAM 03/13/20 03/13/20 History oxycodone 5 mg PO Q6H PRN 03/13/20 03/13/20 History tramadol 50 mg PO Q6H PRN 03/13/20 03/13/20 History Allergies Allergy/AdvReac Type Severity Reaction Status Date / Time No Known Allergies Allergy Verified 03/13/20 21:41 Past Med/Surg History Medical History (Updated 03/14/20 @ 23:23 by Rachel Mcelroy MD) Bronchospasm Cervical fusion syndrome C3-7- NECK EXTENSION SIGNIFICANTLY DECREASED Chronic sinusitis Stable CKD (chronic kidney disease) Mild Diabetes Well controlled and stable per patient Dyslipidemia Gout No recent flares Hypertension Incontinence Urinary- well controlled with supplements Peripheral neuropathy Possible per patient- to LEs 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- no visual issues at this time Surgical History History of arthroscopy RIGHT History of cataract surgery R/L History of colonoscopy History of repair of rotator cuff RIGHT Hx of spinal fusion Hx of total knee replacement RIGHT Family History Mother Family history of diabetes mellitus Family hx of colon cancer Sister Family history of diabetes mellitus Other Diabetes Stroke Social History Smoking Status: Former smoker Second Hand Exposure: Yes (FATHER SMOKED); Hx Alcohol Use: Yes Alcohol type: beer Hx Substance Use: No Preferred Language: [place]ican Communication Ability: Effective Visual Impairment: No Limitations Hearing Ability: Hard of Hearing Environmental Field Professional Required: No Beliefs That Will Affect Care: None marital status: Current Living Situation: Spouse current occupational status: retired Feels Safe at Home: Yes Assistive Devices: Cane and Glasses Review of Systems See HPI for pertinent positives & negatives. and A total of 10 systems reviewed and were otherwise negative Physical Exam Vital Signs Vital Signs - 24 hr 03/13/20 19:17 03/13/20 19:40 03/13/20 19:42 Temperature 36.9 C Temperature Source Temporal Artery Scan Pulse Rate 100 H 107 H 98 H Pulse Rate from SpO2 Sensor 107 H 98 H Respiratory Rate 28 H 19 37 H Blood Pressure 182/104 H 143/75 H Blood Pressure Mean 130 90 Pulse Oximetry 92 90 93 Oxygen Delivery Method Room Air Sepsis Recent Fever Within 48 Hours Yes Sepsis New/Unexplained Change in Mental Status No Sepsis Action Taken by Nursing No Action Required 03/13/20 19:50 03/13/20 20:00 03/13/20 20:10 Temperature Temperature Source Pulse Rate 97 H 90 91 H Pulse Rate from SpO2 Sensor 91 H 91 H Respiratory Rate 23 28 H 29 H Blood Pressure Blood Pressure Mean Pulse Oximetry 97 95 Oxygen Delivery Method Sepsis Recent Fever Within 48 Hours Sepsis New/Unexplained Change in Mental Status Sepsis Action Taken by Nursing 03/13/20 20:13 03/13/20 20:20 03/13/20 20:30 Temperature Temperature Source Pulse Rate 90 Pulse Rate from SpO2 Sensor 89 Respiratory Rate 31 H Blood Pressure 154/79 H Blood Pressure Mean 119 Pulse Oximetry 96 95 Oxygen Delivery Method Room Air Sepsis Recent Fever Within 48 Hours Sepsis New/Unexplained Change in Mental Status Sepsis Action Taken by Nursing 03/13/20 20:41 03/13/20 20:57 03/13/20 21:00 Temperature Temperature Source Pulse Rate 88 98 H 87 Pulse Rate from SpO2 Sensor Respiratory Rate 23 24 Blood Pressure 170/87 H Blood Pressure Mean 104 Pulse Oximetry 92 Oxygen Delivery Method Room Air Sepsis Recent Fever Within 48 Hours Sepsis New/Unexplained Change in Mental Status Sepsis Action Taken by Nursing 03/13/20 21:01 03/13/20 21:10 03/13/20 21:20 Temperature Temperature Source Pulse Rate 87 89 88 Pulse Rate from SpO2 Sensor 87 Respiratory Rate 21 24 Blood Pressure Blood Pressure Mean Pulse Oximetry 91 Oxygen Delivery Method Room Air Sepsis Recent Fever Within 48 Hours Sepsis New/Unexplained Change in Mental Status Sepsis Action Taken by Nursing 03/13/20 21:30 03/13/20 21:31 03/13/20 21:40 Temperature Temperature Source Pulse Rate 88 91 H 89 Pulse Rate from SpO2 Sensor 88 91 H 90 Respiratory Rate 33 H 22 29 H Blood Pressure 156/86 H Blood Pressure Mean 112 Pulse Oximetry 90 91 90 Oxygen Delivery Method Sepsis Recent Fever Within 48 Hours Sepsis New/Unexplained Change in Mental Status Sepsis Action Taken by Nursing 03/13/20 21:50 03/13/20 22:00 03/13/20 22:01 Temperature Temperature Source Pulse Rate 88 88 87 Pulse Rate from SpO2 Sensor 88 88 87 Respiratory Rate 29 H 32 H 29 H Blood Pressure 156/81 H Blood Pressure Mean 103 Pulse Oximetry 91 91 93 Oxygen Delivery Method Sepsis Recent Fever Within 48 Hours Sepsis New/Unexplained Change in Mental Status Sepsis Action Taken by Nursing Vital signs reviewed. General: Somewhat ill-appearing 69-year-old male, in no significant distress. HEENT: No scleral icterus, PERRLA, neck supple. Atraumatic. Cardiovascular: Regular rate and rhythm, no extra sounds. Pulmonary: Dry cough, increased work of breathing, generally clear with rhonchi at the bases. Abdomen: Soft, nontender, nondistended, positive bowel sounds. Musculoskeletal: Atraumatic, no peripheral edema. Neurologic: Patient awake alert and oriented x 3 Skin: Warm, dry, no rash Course Administered Medications Acetaminophen (Acetaminophen 325 Mg Tab) 650 mg PO Q4H PRN PRN Reason: Pain or Fever Stop: 04/12/20 23:57 Last Admin: 03/14/20 00:33 Dose: 650 mg Documented by: [id number] Allopurinol (Allopurinol 300 Mg Tab) 300 mg PO QAM [facility] Stop: 04/13/20 08:59 Last Admin: 03/14/20 09:06 Dose: 300 mg Documented by: [id number] Amlodipine Besylate (Amlodipine Besylate 5 Mg Tab) 10 mg PO QAM [facility] Stop: 04/13/20 08:59 Last Admin: 03/14/20 09:06 Dose: 10 mg Documented by: [id number] Aspirin (Aspirin 81 Mg Ectab) 81 mg PO QAM [facility] Stop: 04/13/20 08:59 Last Admin: 03/14/20 09:05 Dose: 81 mg Documented by: [id number] Atorvastatin Calcium (Atorvastatin 40 Mg Tab) 40 mg PO QPM [facility] Stop: 04/13/20 20:59 Last Admin: 03/14/20 20:43 Dose: 40 mg Documented by: [id number] Enoxaparin Sodium (Enoxaparin Inj 60 Mg/0.6 Ml Syr) 50 mg SQ Q12 [facility] Stop: 04/13/20 08:59 Last Admin: 03/14/20 20:44 Dose: 50 mg Documented by: [id number] Admin: 03/14/20 09:05 Dose: 50 mg Documented by: [id number] Gabapentin (Gabapentin 300 Mg Cap) 300 mg PO QID [facility] Stop: 04/13/20 08:59 Last Admin: 03/14/20 20:44 Dose: 300 mg Documented by: [id number] Admin: 03/14/20 17:36 Dose: 300 mg Documented by: [id number] Admin: 03/14/20 12:16 Dose: 300 mg Documented by: [id number] Admin: 03/14/20 09:06 Dose: 300 mg Documented by: [id number] Ceftriaxone Sodium 2,000 mg/ (Dextrose) 70 mls @ 100 mls/hr IV Q24H MI; Protocol Stop: 03/21/20 00:00 Last Infusion: 03/14/20 01:33 Dose: 0 mls/hr Documented by: [id number] Admin: 03/14/20 00:38 Dose: 100 mls/hr Documented by: [id number] Azithromycin 500 mg/ Dextrose 255 mls @ 125 mls/hr IV DAILY [place] Stop: 03/21/20 08:59 Last Infusion: 03/14/20 11:22 Dose: 0 mls/hr Documented by: [id number] Admin: 03/14/20 09:02 Dose: 125 mls/hr Documented by: [id number] Sodium Chloride (Nss 1000ml) 1,000 mls @ 100 mls/hr IV .Q10H [facility] Stop: 04/12/20 23:57 Last Admin: 03/14/20 20:45 Dose: 100 mls/hr Documented by: [id number] Infusion: 03/14/20 20:45 Dose: 100 mls/hr Documented by: [id number] Admin: 03/14/20 12:17 Dose: 100 mls/hr Documented by: [id number] Infusion: 03/14/20 10:29 Dose: 100 mls/hr Documented by: [id number] Admin: 03/14/20 00:29 Dose: 100 mls/hr Documented by: [id number] Dexamethasone 6 mg/ Syringe 1.5 mls @ 1 mls/min IV QAM MI; Protocol Stop: 04/13/20 14:29 Last Admin: 03/14/20 15:57 Dose: 1 mls/min Documented by: [id number] Insulin Aspart (Insulin Aspart 100 Units/Ml 3 Ml Pen) 0 units SC ACHS MI Stop: 04/13/20 07:29 Last Admin: 03/14/20 20:45 Dose: 4 units Documented by: [id number] Cosigned by: [id number] Admin: 03/14/20 17:31 Dose: 10 units Documented by: [id number] Cosigned by: [id number] Admin: 03/14/20 12:35 Dose: 15 units Documented by: [id number] Cosigned by: [id number] Admin: 03/14/20 09:04 Dose: 6 units Documented by: [id number] Cosigned by: [id number] Admin: 03/14/20 04:42 Dose: 4 units Documented by: [id number] Cosigned by: [id number] Multivitamins (Multivitamin Tab) 1 tab PO QAM [place] Stop: 04/13/20 08:59 Last Admin: 03/14/20 09:06 Dose: 1 tab Documented by: [id number] Sodium Chloride (Sodium Chloride 0.9% 10ml Flush) 30 ml IV Q24H MI Stop: 03/18/20 00:01 Last Admin: 03/14/20 01:23 Dose: 30 ml Documented by: [id number] Discontinued Medications Albuterol (Albuterol Hfa 8 Gm Inhaler) 2 puffs INH QID MI Stop: 04/13/20 08:59 Last Admin: 03/14/20 11:09 Dose: 2 puffs Documented by: [id number] Admin: 03/14/20 07:53 Dose: 2 puffs Documented by: [id number] Dexamethasone (Dexamethasone Sod Inj 10 Mg/Ml Vial) 6 mg IV NOW ONE Stop: 03/13/20 19:30 Last Admin: 03/13/20 19:58 Dose: 6 mg Documented by: [id number] Guaifenesin/Codeine Phosphate (Guaifenesin/Codeine 100mg/10mg 5ml Udc) 10 ml PO NOW STA Stop: 03/14/20 18:06 Last Admin: 03/14/20 18:51 Dose: 10 ml Documented by: [id number] Hydrocodone Bit/Homatropine Methylb (Hydrocodone/Homatropine Syrup 5mg/1.5mg 5ml Udp) 10 ml PO NOW STA Stop: 03/13/20 22:22 Last Admin: 03/13/20 22:30 Dose: 10 ml Documented by: [id number] Sodium Chloride (Nss 1000ml) 1,000 mls @ 999 mls/hr IV .Q1H1M MI Stop: 03/13/20 20:30 Last Infusion: 03/13/20 21:08 Dose: 0 mls/hr Documented by: [id number] Admin: 03/13/20 19:58 Dose: 999 mls/hr Documented by: [id number] Remdesivir 200 mg/ Sodium (Chloride) 250 mls @ 125 mls/hr IV ONE STA; Protocol Stop: 03/14/20 01:59 Last Infusion: 03/14/20 04:03 Dose: 0 mls/hr Documented by: [id number] Admin: 03/14/20 01:23 Dose: 125 mls/hr Documented by: [id number] Insulin Glargine (Insulin Glargine Solostar 100 Units/Ml 3 Ml Pen) 10 units SC NOW STA Stop: 03/14/20 12:22 Last Admin: 03/14/20 13:25 Dose: 10 units Documented by: [id number] Cosigned by: [id number] Insulin Human NPH (Insulin Human Nph) 18 units SC NOW STA Stop: 03/14/20 14:24 Last Admin: 03/14/20 15:57 Dose: 18 units Documented by: [id number] Cosigned by: [id number] Medical Decision Making Differential Diagnosis Viral syndrome, Covid, otitis, pharyngitis, pneumonia, influenza, meningitis, urinary tract infection, sepsis, bacteremia, as well as other pathologies. Medical Records Attestation: I reviewed the patient's medical records. Home Medications Current Medication List: was personally reviewed by me Laboratory Data Attestation: I reviewed the patient's lab results. Result diagrams: 03/14/20 02:38 03/14/20 02:38 Lab Results 03/13/20 03/13/20 03/13/20 Range/Units 20:00 20:00 20:00 WBC 6.33 (4.8-10.8) K/uL RBC 4.13 L (4.7-6.1) M/uL Hgb 12.8 L (14.0-18.0) g/dL Hct 38.9 L (42-52) % MCV 94.2 (80-100) fL MCH 31.0 (25-34) pg MCHC 32.9 (32-36) g/dL RDW Std Deviation 46.7 H (36.4-46.3) fL RDW Coeff of Baljinder 13.5 (11.5-14.5) % Plt Count 204 (130-400) K/uL MPV 12.2 H (7.4-10.4) fL Immature Gran % (Auto) 0.2 % Neut % (Auto) 82.8 % Lymph % (Auto) 12.2 % [place] % (Auto) 4.6 % Eos % (Auto) 0.0 % Baso % (Auto) 0.2 % Neut # (Auto) 5.25 (1.4-6.5) K/uL Lymph # (Auto) 0.77 L (1.2-3.4) K/uL [place] # (Auto) 0.29 (0.11-0.59) K/uL Eos # (Auto) 0.00 (0-0.5) K/uL Baso # (Auto) 0.01 (0-0.2) K/uL Immature Gran # (Auto) 0.01 (0.00-0.02) K/uL ESR 82 H (0-14) mm/hr PT (9.0-12.0) Seconds INR (0.9-1.1) APTT (21.0-31.0) Seconds PTT Ratio D-Dimer (0-500) ug/L FEU Sodium 137 (136-145) mmol/L Potassium 4.3 (3.5-5.1) mmol/L Chloride 108 H (98-107) mmol/L Carbon Dioxide 24 (21-32) mmol/L Anion Gap 5.0 (3-11) BUN 28 H (7-18) mg/dl Creatinine 1.82 H (0.6-1.4) mg/dl Est Cr Clr Drug Dosing 44.6 ml/min Est GFR ( Amer) 43.0 Est GFR (Non-Af Amer) 37.1 BUN/Creatinine Ratio 15.2 (10-20) Glucose 156 H (70-99) mg/dl Lactate (0.4-2.0) mmol/L Calcium 8.7 (8.5-10.1) mg/dl Total Bilirubin 0.3 (0.2-1) mg/dl AST 31 (15-37) U/L ALT 25 (12-78) U/L Alkaline Phosphatase 123 H (45-117) U/L Total Protein 8.5 H (6.4-8.2) gm/dl Albumin 3.7 (3.4-5.0) gm/dl Globulin 4.8 H (2.5-4.0) gm/dl Albumin/Globulin Ratio 0.8 L (0.9-2) Procalcitonin (0-0.5) ng/ml COVID-19 Eval Order SARS-CoV-2, RNA, NAAT (NEGATIVE) Blood Type Antibody Screen 03/13/20 03/13/20 03/13/20 Range/Units 20:00 20:00 20:00 WBC (4.8-10.8) K/uL RBC (4.7-6.1) M/uL Hgb (14.0-18.0) g/dL Hct (42-52) % MCV (80-100) fL MCH (25-34) pg MCHC (32-36) g/dL RDW Std Deviation (36.4-46.3) fL RDW Coeff of Baljinder (11.5-14.5) % Plt Count (130-400) K/uL MPV (7.4-10.4) fL Immature Gran % (Auto) % Neut % (Auto) % Lymph % (Auto) % [place] % (Auto) % Eos % (Auto) % Baso % (Auto) % Neut # (Auto) (1.4-6.5) K/uL Lymph # (Auto) (1.2-3.4) K/uL [place] # (Auto) (0.11-0.59) K/uL Eos # (Auto) (0-0.5) K/uL Baso # (Auto) (0-0.2) K/uL Immature Gran # (Auto) (0.00-0.02) K/uL ESR (0-14) mm/hr PT 9.9 (9.0-12.0) Seconds INR 0.9 (0.9-1.1) APTT 30.9 (21.0-31.0) Seconds PTT Ratio 1.1 D-Dimer 2230 H* (0-500) ug/L FEU Sodium (136-145) mmol/L Potassium (3.5-5.1) mmol/L Chloride (98-107) mmol/L Carbon Dioxide (21-32) mmol/L Anion Gap (3-11) BUN (7-18) mg/dl Creatinine (0.6-1.4) mg/dl Est Cr Clr Drug Dosing ml/min Est GFR ( Amer) Est GFR (Non-Af Amer) BUN/Creatinine Ratio (10-20) Glucose (70-99) mg/dl Lactate 1.8 (0.4-2.0) mmol/L Calcium (8.5-10.1) mg/dl Total Bilirubin (0.2-1) mg/dl AST (15-37) U/L ALT (12-78) U/L Alkaline Phosphatase (45-117) U/L Total Protein (6.4-8.2) gm/dl Albumin (3.4-5.0) gm/dl Globulin (2.5-4.0) gm/dl Albumin/Globulin Ratio (0.9-2) Procalcitonin 0.38 (0-0.5) ng/ml COVID-19 Eval Order SARS-CoV-2, RNA, NAAT (NEGATIVE) Blood Type Antibody Screen 03/13/20 03/13/20 03/13/20 Range/Units 20:08 20:08 22:03 WBC (4.8-10.8) K/uL RBC (4.7-6.1) M/uL Hgb (14.0-18.0) g/dL Hct (42-52) % MCV (80-100) fL MCH (25-34) pg MCHC (32-36) g/dL RDW Std Deviation (36.4-46.3) fL RDW Coeff of Baljinder (11.5-14.5) % Plt Count (130-400) K/uL MPV (7.4-10.4) fL Immature Gran % (Auto) % Neut % (Auto) % Lymph % (Auto) % [place] % (Auto) % Eos % (Auto) % Baso % (Auto) % Neut # (Auto) (1.4-6.5) K/uL Lymph # (Auto) (1.2-3.4) K/uL [place] # (Auto) (0.11-0.59) K/uL Eos # (Auto) (0-0.5) K/uL Baso # (Auto) (0-0.2) K/uL Immature Gran # (Auto) (0.00-0.02) K/uL ESR (0-14) mm/hr PT (9.0-12.0) Seconds INR (0.9-1.1) APTT (21.0-31.0) Seconds PTT Ratio D-Dimer (0-500) ug/L FEU Sodium (136-145) mmol/L Potassium (3.5-5.1) mmol/L Chloride (98-107) mmol/L Carbon Dioxide (21-32) mmol/L Anion Gap (3-11) BUN (7-18) mg/dl Creatinine (0.6-1.4) mg/dl Est Cr Clr Drug Dosing ml/min Est GFR ( Amer) Est GFR (Non-Af Amer) BUN/Creatinine Ratio (10-20) Glucose (70-99) mg/dl Lactate (0.4-2.0) mmol/L Calcium (8.5-10.1) mg/dl Total Bilirubin (0.2-1) mg/dl AST (15-37) U/L ALT (12-78) U/L Alkaline Phosphatase (45-117) U/L Total Protein (6.4-8.2) gm/dl Albumin (3.4-5.0) gm/dl Globulin (2.5-4.0) gm/dl Albumin/Globulin Ratio (0.9-2) Procalcitonin (0-0.5) ng/ml COVID-19 Eval Order Covid19 [facility] SARS-CoV-2, RNA, NAAT POSITIVE A* (NEGATIVE) Blood Type A Positive Antibody Screen NEGATIVE Imaging Data Attestation: I personally reviewed and interpreted this imaging study as follows: My Impression: Chest x-ray to my interpretation reveals patchy bilateral infiltrates consistent with a viral pneumonitis. Normal mediastinal silhouette. No evidence of failure. Postsurgical change noted at the cervical spine. ECG Data Attestation: I personally reviewed and interpreted this ECG as follows: Indication: + SOB/dyspnea Rate (beats per minute): 95 Rhythm: + normal sinus ECG Intervals/blocks: + Normal QT-c ECG ST segments: + Normal ST segments ECG Findings: no PACs and no PVCs Blood Pressure Blood Pressure Findings: Elevated blood pressure Blood Pressure Disposition: further management by hospitalist CHRISTEL Medina This patient was evaluated and appeared to be in no significant distress. Patient was placed on isolation precautions given his and daughter's diagnosis of Covid recently. Patient had borderline hypoxia between 90 and 93%. An order for cardiac monitoring was placed and he was noted to be in a sinus rhythm at 98 bpm. Patient was hydrated with normal saline solution, given IV dexamethasone 6 mg. Chest x-ray was performed and was concerning for patchy bilateral infiltrates. A rapid Covid swab was performed and is positive. Patient's coughing became cumbersome and nursing asked for a suppressant, he was given Hycodan cough syrup. Given the patient's borderline hypoxia, positive Covid swab and duration of symptoms, the hospitalist was consulted for further management. The patient has expressed understanding of the plan and agrees. Impression & Plan Pneumonia due to 2019 novel coronavirus Discharge Plan Visit Data Chief Complaint: Flu Like Symptoms Stated Complaint: LOSS OF TASTE/ SMELL, COUGH, SOB ED Provider: Rachel Mcelroy Discharge Problem: Pneumonia due to 2019 novel coronavirus Patient Disposition: Admitted As Inpatient Discharge Instructions Interventions: ED Discharge Assessment Last Done: 03/13/20 23:41
[2020-03-14 02:52] LABS: Hematocrit (blood only) 33.6 % (42-52); Immature Granulocytes # (auto) 0.01 K/uL (0.00-0.02); Immature Granulocytes % (auto) 0.3 %; Lymphocytes # (auto) 0.44 K/uL (1.2-3.4); Lymphocytes % (auto) 12.1 %; Mean Corpuscular Hemoglobin 30.1 pg (25-34); Mean Corpuscular Hgb Conc 32.7 g/dL (32-36); Mean Corpuscular Volume 92.1 fL (80-100); Mean Platelet Volume 11.8 fL (7.4-10.4); Monocytes # (auto) 0.06 K/uL (0.11-0.59); Monocytes % (auto) 1.6 %; Neutrophils # (auto) 3.14 K/uL (1.4-6.5); Platelet Count 174 K/uL (130-400); RDW Coefficient of Variation 13.4 % (11.5-14.5); RDW Standard Deviation 45.2 fL (36.4-46.3); Red Blood Count 3.65 M/uL (4.7-6.1); White Blood Count 3.65 K/uL (4.8-10.8)
[2020-03-14 03:04] LABS: Partial Thromboplastin Ratio 1.3; Partial Thromboplastin Time 34.9 Seconds (21.0-31.0); Prothrombin Time 10.5 Seconds (9.0-12.0)
[2020-03-14 03:10] LABS: BUN Creatinine Ratio 17.5 (10-20); Calcium 7.7 mg/dl (8.5-10.1); Creatinine Clr Calc Pharmacy 54.9 ml/min; Est GFR (African American) 55.6; Magnesium 1.9 mg/dl (1.8-2.4); Potassium 4.5 mmol/L (3.5-5.1)
[2020-03-14 03:13] LABS: Albumin Globulin Ratio 0.7 (0.9-2); Bilirubin,Total 0.2 mg/dl (0.2-1); Globulin 4.2 gm/dl (2.5-4.0); Total Protein 7.2 gm/dl (6.4-8.2)
[2020-03-14] MEDS: INSULIN ASPART 100 UNITS/ML 3 ML PEN SC SCH ×5 (04:42→20:45)
[2020-03-14 05:20] LABS: Appearance Urine Clear (Clear); Bacteria Urine Automated Negative (Negative); Bilirubin Urine Negative (Negative); Blood Urine 1+ (Negative); Cast Urine Automated 0 /lpf (0-5); Color Urine Yellow; Epithelial Cell Urine Auto >30 /lpf (0-5); Glucose Urine UA 3+ (Negative); Ketones Urine 1+ (Negative); Leukocyte Esterase Urine Negative (Negative); Nitrite Urine Negative (Negative); Protein Urine 2+ (Negative); RBC Urine Automated 0-4 /hpf (0-4); Specific Gravity Urine 1.023 (1.000-1.030); Urobilinogen Urine Negative (Negative); WBC Urine Automated >30 /hpf (0-5)
[2020-03-14 06:55] LABS: Estimated Average Glucose 174 mg/dl; Hemoglobin A1C 7.7 % (4.5-5.6)
[2020-03-14] MEDS: ALBUTEROL HFA 8 GM INHALER INH SCH ×2 (07:53→11:09)
[2020-03-14] MEDS ORDERED: [UNRECOGNIZED DRUG - OTHER] PO SCH (09:00)
[2020-03-14] MEDS ORDERED: NON-FORMULARY MEDICATION (Turmeric Root Extract 500 mg Capsule) PO SCH (09:00)
[2020-03-14] MEDS ORDERED: NON-FORMULARY MEDICATION (Coq10 (Ubiquinol) 200 mg Capsule) PO SCH (09:00)
--- NOTE | 2020-03-14 09:01 | XRay Report ---
XR chest 1V portable CLINICAL HISTORY: SOB, fever COMPARISON STUDY: Chest radiograph December 28, 2019. FINDINGS: No pneumothorax or pleural effusion is noted. Postoperative findings within the spine are p artially imaged. Distal right clavicular resection is incidentally noted. Note is made of mild enlarg ement of the cardiac silhouette. Multifocal bilateral airspace opacities have developed since exam of December 28, 2019. IMPRESSION: Interval development of multifocal bilateral airspace opacities suggestive of an infecti ous process. Radiographic follow-up is recommended. ACT 112: Negative or not required by law. Electronically signed by: Scott Zhu M.D. 03/14/2020 9:00 AM
[2020-03-14] MEDS: AZITHROMYCIN 500 MG in DEXTROSE 5% 250 ML IV SCH (09:02)
[2020-03-14] MEDS: ENOXAPARIN INJ 60 MG/0.6 ML SYR SQ SCH ×2 (09:05→20:44)
[2020-03-14] MEDS: ASPIRIN 81 MG ECTAB PO SCH (09:05)
[2020-03-14] MEDS: amLODIPine BESYLATE 5 MG TAB PO SCH (09:06)
[2020-03-14] MEDS: allopurinoL 300 MG TAB PO SCH (09:06)
[2020-03-14] MEDS: MULTIVITAMIN TAB PO SCH (09:06)
[2020-03-14] MEDS: GABAPENTIN 300 MG CAP PO SCH ×4 (09:06→20:44)
--- NOTE | 2020-03-14 11:28 | Hospitalist Progress Note ---
Date of Service March 14, 2020 Assessment & Plan (1) Pneumonia due to COVID-19 virus: Pneumonia due to COVID-19 virus with hypoxia and bronchospasm- Decadron 6 mg IV daily x 10 days, today is day 2 Remdesivir daily x 5 days, today is day 2, if he is off oxygen he can go home, no need to finish all 5 days Convalescent plasma administered, tolerated well Ceftriaxone 2 g IV daily and Azithromycin 500 mg IV daily started on admission, complete 5 days of treatment convert to PO options on discharge Ventolin HFA 2 puffs 4 times daily, and every 2 hours as needed Nasal cannula oxygen, titrate to keep pulse ox around 95%, today he is 92% on room air (2) Hypoxia: acute respiratory failure with hypoxia increased work of breathing at rest, 87% on room air on admission, due to COVID pneumonia resolving quickly, titrated off oxygen, 92%, still working a little harder than normal to ventilate (3) Bronchospasm: See above no wheezing on exam today (4) Acute kidney injury: Creatinine 1.82 upon admission, baseline 1.24. Hold for losartan/HCTZ, meloxicam and metformin. NSS 100 mils per hour. Cr improved to 1.4 but not quite at baseline and oral intake still suboptimal continue fluids another 24 hours, repeat BMP in the morning (5) DM w/o complication type II, uncontrolled: Hold glipizide and Metformin. Placed in Accu-Cheks before meals and at bedtime with NovoLog coverage per scale monitor for hypoglycemia (6) Peripheral neuropathy: Continue gabapentin 300 mg p.o. 4 times daily. Hold meloxicam due to acute kidney injury (7) Gout: Continue allopurinol 300 mg daily (8) Dyslipidemia: Continue atorvastatin 40 mg every evening (9) Bladder mass: Admission and Anticipated Discharge Date Admission Date: March 13, 2020 Subjective patient is feeling a little better after Remdesivir, plasma, Decadron and antibiotics eating okay this morning, had a piece of toast no fever/chills, no sweats, admits that he does feel short of breath at rest no chest pain, no abdominal pain, no nausea discussed that he is currently on room air, saturating 92%, will want to see him stay off oxygen through tomorrow if he does that then plan for discharge to home, he agrees with this plan Review of Systems Review of Systems: All systems reviewed & are unremarkable except as noted in Subjective Physical Exam Constitutional: WD/WN, vitals as above ENMT: external ear and nose normal, oropharynx normal Neck: trachea midline, no thyromegaly Respiratory: + labored breathing and + cough; no respiratory distress Auscultation: lungs clear to auscultation bilaterally Cardiovascular: RRR, no murmur, no edema Gastrointestinal (Abdomen): normal bowel sounds, soft, nontender, no hepatosplenomegaly Musculoskeletal: no cyanosis or clubbing, extremities motor strength 5/5 Skin: no rashes, warm and dry Neurologic: patellar DTR's 2+ bilat, sensation intact and PERRL, EOMI, accommodation nl, no face palsy, no dysarthria Psychiatric: A+Ox3, euthymic affect Lymphatic: no cervical or axillary lymphadenopathy Results & Data Results & Data ([facility]) Vital Signs (Past 12 Hours) Vital Signs Temp Pulse Pulse Pulse Resp BP BP 03/14/20 11:10 78 20 03/14/20 08:00 36.3 C L 64 18 122/74 03/14/20 07:53 74 18 03/14/20 07:21 59 L 03/14/20 04:03 37 C 67 18 116/70 03/14/20 03:30 36.7 C 68 20 113/67 03/14/20 03:00 36.9 C 76 22 105/65 03/14/20 02:45 36.9 C 70 20 118/75 03/14/20 02:27 37.6 C H 76 20 107/61 03/14/20 00:45 38.5 C H 03/13/20 23:58 90 03/13/20 23:45 39.2 C H 93 H 20 150/74 H 03/13/20 23:34 89 22 141/77 H Pulse Ox 03/14/20 11:10 94 03/14/20 08:00 96 03/14/20 07:53 97 03/14/20 07:21 03/14/20 04:03 94 03/14/20 03:30 96 03/14/20 03:00 95 03/14/20 02:45 95 03/14/20 02:27 95 03/14/20 00:45 03/13/20 23:58 11/26/20 23:45 90 03/13/20 23:34 92 Laboratory Results Laboratory Results - last 24 hr 03/13/20 03/13/20 03/13/20 20:00 20:00 20:00 WBC 6.33 RBC 4.13 L Hgb 12.8 L Hct 38.9 L MCV 94.2 MCH 31.0 MCHC 32.9 RDW Std Deviation 46.7 H RDW Coeff of Baljinder 13.5 Plt Count 204 MPV 12.2 H Immature Gran % (Auto) 0.2 Neut % (Auto) 82.8 Lymph % (Auto) 12.2 Crowley % (Auto) 4.6 Eos % (Auto) 0.0 Baso % (Auto) 0.2 Neut # (Auto) 5.25 Lymph # (Auto) 0.77 L Crowley # (Auto) 0.29 Eos # (Auto) 0.00 Baso # (Auto) 0.01 Immature Gran # (Auto) 0.01 ESR 82 H PT INR APTT PTT Ratio D-Dimer Sodium 137 Potassium 4.3 Chloride 108 H Carbon Dioxide 24 Anion Gap 5.0 BUN 28 H Creatinine 1.82 H Est Cr Clr Drug Dosing 44.6 Est GFR ( Amer) 43.0 Est GFR (Non-Af Amer) 37.1 BUN/Creatinine Ratio 15.2 Glucose 156 H POC Glucose Estimat Average Glucose Hemoglobin A1c Lactate Calcium 8.7 Magnesium Total Bilirubin 0.3 AST 31 ALT 25 Alkaline Phosphatase 123 H Total Protein 8.5 H Albumin 3.7 Globulin 4.8 H Albumin/Globulin Ratio 0.8 L Procalcitonin Urine Color Urine Appearance Urine pH Ur Specific [place] Urine Protein Urine Glucose (UA) Urine Ketones Urine Blood Urine Nitrite Urine Bilirubin Urine Urobilinogen Ur Leukocyte Esterase Urine WBC (Auto) Urine RBC (Auto) U Hyaline Cast (Auto) U Epithel Cells (Auto) Urine Bacteria (Auto) Ur Renal Epithelial Cell COVID-19 Eval Order SARS-CoV-2, RNA, NAAT Blood Type Antibody Screen 03/13/20 03/13/20 03/13/20 20:00 20:00 20:00 WBC RBC Hgb Hct MCV MCH MCHC RDW Std Deviation RDW Coeff of Baljinder Plt Count MPV Immature Gran % (Auto) Neut % (Auto) Lymph % (Auto) Crowley % (Auto) Eos % (Auto) Baso % (Auto) Neut # (Auto) Lymph # (Auto) Crowley # (Auto) Eos # (Auto) Baso # (Auto) Immature Gran # (Auto) ESR PT 9.9 INR 0.9 APTT 30.9 PTT Ratio 1.1 D-Dimer 2230 H* Sodium Potassium Chloride Carbon Dioxide Anion Gap BUN Creatinine Est Cr Clr Drug Dosing Est GFR ( Amer) Est GFR (Non-Af Amer) BUN/Creatinine Ratio Glucose POC Glucose Estimat Average Glucose Hemoglobin A1c Lactate 1.8 Calcium Magnesium Total Bilirubin AST ALT Alkaline Phosphatase Total Protein Albumin Globulin Albumin/Globulin Ratio Procalcitonin 0.38 Urine Color Urine Appearance Urine pH Ur Specific [place] Urine Protein Urine Glucose (UA) Urine Ketones Urine Blood Urine Nitrite Urine Bilirubin Urine Urobilinogen Ur Leukocyte Esterase Urine WBC (Auto) Urine RBC (Auto) U Hyaline Cast (Auto) U Epithel Cells (Auto) Urine Bacteria (Auto) Ur Renal Epithelial Cell COVID-19 Eval Order SARS-CoV-2, RNA, NAAT Blood Type Antibody Screen 03/13/20 03/13/20 03/13/20 20:08 20:08 22:03 WBC RBC Hgb Hct MCV MCH MCHC RDW Std Deviation RDW Coeff of Baljinder Plt Count MPV Immature Gran % (Auto) Neut % (Auto) Lymph % (Auto) Crow[place] % (Auto) Eos % (Auto) Baso % (Auto) Neut # (Auto) Lymph # (Auto) Crowley # (Auto) Eos # (Auto) Baso # (Auto) Immature Gran # (Auto) ESR PT INR APTT PTT Ratio D-Dimer Sodium Potassium Chloride Carbon Dioxide Anion Gap BUN Creatinine Est Cr Clr Drug Dosing Est GFR ( Amer) Est GFR (Non-Af Amer) BUN/Creatinine Ratio Glucose POC Glucose Estimat Average Glucose Hemoglobin A1c Lactate Calcium Magnesium Total Bilirubin AST ALT Alkaline Phosphatase Total Protein Albumin Globulin Albumin/Globulin Ratio Procalcitonin Urine Color Urine Appearance Urine pH Ur Specific [place] Urine Protein Urine Glucose (UA) Urine Ketones Urine Blood Urine Nitrite Urine Bilirubin Urine Urobilinogen Ur Leukocyte Esterase Urine WBC (Auto) Urine RBC (Auto) U Hyaline Cast (Auto) U Epithel Cells (Auto) Urine Bacteria (Auto) Ur Renal Epithelial Cell COVID-19 Eval [facility] SARS-CoV-2, RNA, NAAT POSITIVE A* Blood Type A Positive Antibody Screen NEGATIVE 03/14/20 03/14/20 03/14/20 02:38 02:38 02:38 WBC 3.65 L RBC 3.65 L Hgb 11.0 L Hct 33.6 L MCV 92.1 MCH 30.1 MCHC 32.7 RDW Std Deviation 45.2 RDW Coeff of Baljinder 13.4 Plt Count 174 MPV 11.8 H Immature Gran % (Auto) 0.3 Neut % (Auto) 86.0 Lymph % (Auto) 12.1 Crowley % (Auto) 1.6 Eos % (Auto) 0.0 Baso % (Auto) 0.0 Neut # (Auto) 3.14 Lymph # (Auto) 0.44 L Crowley # (Auto) 0.06 L Eos # (Auto) 0.00 Baso # (Auto) 0.00 Immature Gran # (Auto) 0.01 ESR PT 10.5 INR 1.0 APTT 34.9 H PTT Ratio 1.3 D-Dimer Sodium 137 Potassium 4.5 Chloride 108 H Carbon Dioxide 22 Anion Gap 7.0 BUN 26 H Creatinine 1.47 H D Est Cr Clr Drug Dosing 54.9 Est GFR ( Amer) 55.6 Est GFR (Non-Af Amer) 48.0 BUN/Creatinine Ratio 17.5 Glucose 261 H POC Glucose Estimat Average Glucose Hemoglobin A1c Lactate Calcium 7.7 L Magnesium 1.9 Total Bilirubin 0.2 AST 30 ALT 21 Alkaline Phosphatase 98 Total Protein 7.2 Albumin 3.0 L Globulin 4.2 H Albumin/Globulin Ratio 0.7 L Procalcitonin Urine Color Urine Appearance Urine pH Ur Specific [place] Urine Protein Urine Glucose (UA) Urine Ketones Urine Blood Urine Nitrite Urine Bilirubin Urine Urobilinogen Ur Leukocyte Esterase Urine WBC (Auto) Urine RBC (Auto) U Hyaline Cast (Auto) U Epithel Cells (Auto) Urine Bacteria (Auto) Ur Renal Epithelial Cell COVID-19 Eval Order SARS-CoV-2, RNA, NAAT Blood Type Antibody Screen 03/14/20 03/14/20 03/14/20 02:38 04:41 04:45 WBC RBC Hgb Hct MCV MCH MCHC RDW Std Deviation RDW Coeff of Baljinder Plt Count MPV Immature Gran % (Auto) Neut % (Auto) Lymph % (Auto) [place] % (Auto) Eos % (Auto) Baso % (Auto) Neut # (Auto) Lymph # (Auto) [place] # (Auto) Eos # (Auto) Baso # (Auto) Immature Gran # (Auto) ESR PT INR APTT PTT Ratio D-Dimer Sodium Potassium Chloride Carbon Dioxide Anion Gap BUN Creatinine Est Cr Clr Drug Dosing Est GFR ( Amer) Est GFR (Non-Af Amer) BUN/Creatinine Ratio Glucose POC Glucose 237 H Estimat Average Glucose 174 Hemoglobin A1c 7.7 H Lactate Calcium Magnesium Total Bilirubin AST ALT Alkaline Phosphatase Total Protein Albumin Globulin Albumin/Globulin Ratio Procalcitonin Urine Color Yellow Urine Appearance Clear Urine pH 5.0 Ur Specific [place] 1.023 Urine Protein 2+ H Urine Glucose (UA) 3+ H Urine Ketones 1+ H Urine Blood 1+ H Urine Nitrite Negative Urine Bilirubin Negative Urine Urobilinogen Negative Ur Leukocyte Esterase Negative Urine WBC (Auto) >30 H Urine RBC (Auto) 0-4 U Hyaline Cast (Auto) 0 U Epithel Cells (Auto) >30 H Urine Bacteria (Auto) Negative Ur Renal Epithelial Cell Not Reportable COVID-19 Eval Order SARS-CoV-2, RNA, NAAT Blood Type Antibody Screen 03/14/20 07:56 WBC RBC Hgb Hct MCV MCH MCHC RDW Std Deviation RDW Coeff of Baljinder Plt Count MPV Immature Gran % (Auto) Neut % (Auto) Lymph % (Auto) [place] % (Auto) Eos % (Auto) Baso % (Auto) Neut # (Auto) Lymph # (Auto) [place] # (Auto) Eos # (Auto) Baso # (Auto) Immature Gran # (Auto) ESR PT INR APTT PTT Ratio D-Dimer Sodium Potassium Chloride Carbon Dioxide Anion Gap BUN Creatinine Est Cr Clr Drug Dosing Est GFR ( Amer) Est GFR (Non-Af Amer) BUN/Creatinine Ratio Glucose POC Glucose 221 H Estimat Average Glucose Hemoglobin A1c Lactate Calcium Magnesium Total Bilirubin AST ALT Alkaline Phosphatase Total Protein Albumin Globulin Albumin/Globulin Ratio Procalcitonin Urine Color Urine Appearance Urine pH Ur Specific [place] Urine Protein Urine Glucose (UA) Urine Ketones Urine Blood Urine Nitrite Urine Bilirubin Urine Urobilinogen Ur Leukocyte Esterase Urine WBC (Auto) Urine RBC (Auto) U Hyaline Cast (Auto) U Epithel Cells (Auto) Urine Bacteria (Auto) Ur Renal Epithelial Cell COVID-19 Eval Order SARS-CoV-2, RNA, NAAT Blood Type Antibody Screen Medications Administered Current Inpatient Medications Acetaminophen (Acetaminophen 325 Mg Tab) 650 mg PO Q4H PRN PRN Reason: Pain or Fever Stop: 04/12/20 23:57 Last Admin: 03/14/20 00:33 Dose: 650 mg Documented by: Albuterol (Albuterol Hfa 8 Gm Inhaler) 2 puffs INH QID [facility] Stop: 04/13/20 08:59 Last Admin: 03/14/20 11:09 Dose: 2 puffs Documented by: Allopurinol (Allopurinol 300 Mg Tab) 300 mg PO QAM [facility] Stop: 04/13/20 08:59 Last Admin: 03/14/20 09:06 Dose: 300 mg Documented by: Amlodipine Besylate (Amlodipine Besylate 5 Mg Tab) 10 mg PO QAM [facility] Stop: 04/13/20 08:59 Last Admin: 03/14/20 09:06 Dose: 10 mg Documented by: Aspirin (Aspirin 81 Mg Ectab) 81 mg PO QAM [facility] Stop: 04/13/20 08:59 Last Admin: 03/14/20 09:05 Dose: 81 mg Documented by: Atorvastatin Calcium (Atorvastatin 40 Mg Tab) 40 mg PO QPM [facility] Stop: 04/13/20 20:59 Dextrose (Dextrose 50% 50 Ml Syringe) 25 - 50 ml IV UD PRN; Protocol PRN Reason: Hypoglycemia Protocol Stop: 04/12/20 23:57 Enoxaparin Sodium (Enoxaparin Inj 60 Mg/0.6 Ml Syr) 50 mg SQ Q12 [facility] Stop: 04/13/20 08:59 Last Admin: 03/14/20 09:05 Dose: 50 mg Documented by: Gabapentin (Gabapentin 300 Mg Cap) 300 mg PO QID [facility] Stop: 04/13/20 08:59 Last Admin: 03/14/20 09:06 Dose: 300 mg Documented by: Glucagon (Glucagon For Inj 1 Mg Vial) 1 mg SQ UD PRN; Protocol PRN Reason: Hypoglycemia Protocol Stop: 04/12/20 23:57 Glucose (Glucose 10 Tabs/Tube) 4 - 8 tabs PO UD PRN; Protocol PRN Reason: Hypoglycemia Protocol Stop: 04/12/20 23:57 Glucose (Glucose 40% Gel 15 Gm Tube) 15 - 30 gm PO UD PRN; Protocol PRN Reason: Hypoglycemia Protocol Stop: 04/12/20 23:57 Ceftriaxone Sodium 2,000 mg/ (Dextrose) 70 mls @ 100 mls/hr IV Q24H [facility]; Protocol Stop: 03/21/20 00:00 Last Infusion: 03/14/20 01:33 Dose: Infused Documented by: Azithromycin 500 mg/ Dextrose 255 mls @ 125 mls/hr IV DAILY [facility] Stop: 03/21/20 08:59 Last Infusion: 03/14/20 11:22 Dose: Infused Documented by: Sodium Chloride (Nss 1000ml) 1,000 mls @ 100 mls/hr IV .Q10H [facility] Stop: 04/12/20 23:57 Last Admin: 03/14/20 00:29 Dose: 100 mls/hr Documented by: Dexamethasone 6 mg/ Syringe 1.5 mls @ 1 mls/min IV Q24H [facility] Stop: 04/13/20 19:59 Remdesivir 100 mg/ Sodium (Chloride) 250 mls @ 250 mls/hr IV Q24H [facility]; Protocol Stop: 03/18/20 01:59 Insulin Aspart (Insulin Aspart 100 Units/Ml 3 Ml Pen) 0 units SC ACHS [facility] Stop: 04/13/20 07:29 Last Admin: 03/14/20 09:04 Dose: 6 units Documented by: Miscellaneous (Carbohydrates For Hypoglycemia ) 15 - 30 gm PO UD PRN PRN Reason: Hypoglycemia Protocol Stop: 04/12/20 23:57 Multivitamins (Multivitamin Tab) 1 tab PO QAM [facility] Stop: 04/13/20 08:59 Last Admin: 03/14/20 09:06 Dose: 1 tab Documented by: Nitroglycerin (Nitroglycerin Sl 0.4 Mg/Tab Tab) 0.4 mg SL UD PRN PRN Reason: Chest Pain Stop: 04/12/20 23:57 Ondansetron HCl (Ondansetron Inj 2 Mg/Ml 2 Ml Vial) 4 mg IV Q6H PRN PRN Reason: Nausea Stop: 04/12/20 23:57 Oxycodone HCl (Oxycodone Hcl Ir 5 Mg Tab (Immediate Release)) 5 mg PO Q6H PRN PRN Reason: Pain, Severe Stop: 03/28/20 00:17 Sodium Chloride (Sodium Chloride 0.9% 10ml Flush) 30 ml IV Q24H [facility] Stop: 03/18/20 00:01 Last Admin: 03/14/20 01:23 Dose: 30 ml Documented by: Tramadol HCl (Tramadol Hcl 50 Mg Tablet) 50 mg PO Q6H PRN PRN Reason: Pain, Moderate Stop: 04/12/20 23:57 PG Care Time/CCT Total # of Minutes Spent Total Time Spent with Patient: Total time spent is greater than 50% in coordination of care (as documented) at patient's floor/unit and/or counseling patient: Coding Level of Care Code 73493 Subseq Hosp Care Lvl 3 Diagnoses Pneumonia due to COVID-19 virus U07.1; J12.89 Hypoxia R09.02 Bronchospasm J98.01 Acute kidney injury N17.9 DM w/o complication type II, uncontrolled E11.65 Peripheral neuropathy G62.9 Gout M10.9 Dyslipidemia E78.5 Bladder mass N32.89
[2020-03-14] MEDS ORDERED: INSULIN GLARGINE SOLOSTAR 100 UNITS/ML 3 ML PEN SC STA (12:21)
[2020-03-14] MEDS ORDERED: INSULIN HUMAN NPH SC STA (14:23)
[2020-03-14] MEDS ORDERED: ALBUTEROL HFA 8 GM INHALER INH PRN (15:26)
[2020-03-14] MEDS: dexAMETHasone 6 MG in SYRINGE 0 ML IV SCH (15:57)
[2020-03-14] MEDS ORDERED: guaiFENesin/CODEINE 100MG/10MG 5ML UDC PO STA (18:05)
[2020-03-14] MEDS ORDERED: dexAMETHasone 6 MG in SYRINGE 0 ML IV SCH (20:00)
[2020-03-14] MEDS: ATORVASTATIN 40 MG TAB PO SCH (20:43)
--- NOTE | 2020-03-14 22:31 | Electrocardiogram Report ---
Test Reason : Blood Pressure : / mmHG Vent. Rate : 095 BPM Atrial Rate : 095 BPM P-R Int : 170 ms QRS Dur : 070 ms QT Int : 326 ms P-R-T Axes : 057 002 058 degrees QTc Int : 409 ms Poor data quality, interpretation may be adversely affected Normal sinus rhythm Low voltage QRS Borderline ECG When compared with ECG of 13-DEC-2019 13:48, No significant change was found Confirmed by Michael Moyer ([id number]) on 03/14/2020 10:30:40 PM Referred By: REFERRED SELF Confirmed By:Michael Moyer
[2020-03-15] MEDS: cefTRIAXone SODIUM 2,000 MG in DEXTROSE 5% 50 ML IV SCH ×2 (00:48→23:25)
[2020-03-15] MEDS: REMDESIVIR 100 MG in SODIUM CHLORIDE 0.9% 230 ML IV SCH (01:59)
[2020-03-15] MEDS: SODIUM CHLORIDE 0.9% 10ML FLUSH IV SCH (01:59)
[2020-03-15] MEDS: SODIUM CHLORIDE 0.9% 1000ML 1,000 ML IV SCH (05:33)
[2020-03-15 08:16] LABS: Basophils # (auto) 0.01 K/uL (0-0.2); Basophils % (auto) 0.2 %; Hemoglobin 10.9 g/dL (14.0-18.0); Immature Granulocytes # (auto) 0.02 K/uL (0.00-0.02); Immature Granulocytes % (auto) 0.3 %; Lymphocytes # (auto) 0.94 K/uL (1.2-3.4); Mean Corpuscular Hemoglobin 30.3 pg (25-34); Mean Corpuscular Volume 91.7 fL (80-100); Mean Platelet Volume 11.9 fL (7.4-10.4); Monocytes # (auto) 0.41 K/uL (0.11-0.59); Neutrophils # (auto) 4.49 K/uL (1.4-6.5); Neutrophils % (auto) 76.5 %; Platelet Count 202 K/uL (130-400); RDW Coefficient of Variation 13.3 % (11.5-14.5); RDW Standard Deviation 44.7 fL (36.4-46.3); White Blood Count 5.87 K/uL (4.8-10.8)
[2020-03-15 08:33] LABS: Albumin Level 2.7 gm/dl (3.4-5.0); BUN Creatinine Ratio 21.7 (10-20); Calcium 8.1 mg/dl (8.5-10.1); Creatinine Clr Calc Pharmacy 75.9 ml/min; Est GFR (African American) 80.7; Est GFR (Non-African American) 69.7; Potassium 3.9 mmol/L (3.5-5.1)
[2020-03-15 08:37] LABS: Albumin Globulin Ratio 0.7 (0.9-2); Bilirubin,Total 0.2 mg/dl (0.2-1); Globulin 4.1 gm/dl (2.5-4.0); Total Protein 6.8 gm/dl (6.4-8.2)
[2020-03-15] MEDS ORDERED: INSULIN HUMAN NPH SC SCH (09:00)
[2020-03-15] MEDS: ASPIRIN 81 MG ECTAB PO SCH (09:41)
[2020-03-15] MEDS: MULTIVITAMIN TAB PO SCH (09:41)
[2020-03-15] MEDS: amLODIPine BESYLATE 5 MG TAB PO SCH (09:41)
[2020-03-15] MEDS: allopurinoL 300 MG TAB PO SCH (09:41)
[2020-03-15] MEDS: ENOXAPARIN INJ 60 MG/0.6 ML SYR SQ SCH ×2 (09:42→21:15)
[2020-03-15] MEDS: dexAMETHasone 6 MG in SYRINGE 0 ML IV SCH (09:43)
[2020-03-15] MEDS: AZITHROMYCIN 500 MG in DEXTROSE 5% 250 ML IV SCH (09:43)
[2020-03-15] MEDS: GABAPENTIN 300 MG CAP PO SCH ×4 (09:44→21:15)
[2020-03-15] MEDS: INSULIN HUMAN NPH SC SCH (10:11)
[2020-03-15] MEDS: INSULIN ASPART 100 UNITS/ML 3 ML PEN SC SCH ×4 (10:11→21:18)
--- NOTE | 2020-03-15 10:44 | Hospitalist Progress Note ---
Date of Service March 15, 2020 Assessment & Plan (1) Pneumonia due to COVID-19 virus: Pneumonia due to COVID-19 virus with hypoxia and bronchospasm- Decadron 6 mg IV daily x 10 days, today is day 3 Remdesivir daily x 5 days, today is day 3, if he is off oxygen he can go home, no need to finish all 5 days Convalescent plasma administered, tolerated well Ceftriaxone 2 g IV daily and Azithromycin 500 mg IV daily started on admission, complete 5 days of treatment convert to PO options on discharge, hope for tomorrow Ventolin HFA 2 puffs 4 times daily, and every 2 hours as needed Nasal cannula oxygen, titrate to keep pulse ox > 90%, he is 93% on room air today, required oxygen over night if he remains off oxygen for 24 hours will d/c tomorrow morning (2) Hypoxia: acute respiratory failure with hypoxia increased work of breathing at rest, 87% on room air on admission, due to COVID pneumonia breathing easier today, saturations 93% on room air, required oxygen overnight, 1.5 liters look to discharge tomorrow (3) Bronchospasm: See above no wheezing on exam today (4) Acute kidney injury: Creatinine 1.82 upon admission, baseline 1.24. Hold for losartan/HCTZ, meloxicam and metformin. NSS 100 mils per hour. Cr improved to 1.0, electrolytes stable, stop fluids (5) DM w/o complication type II, uncontrolled: Hold glipizide and Metformin. Placed in Accu-Cheks before meals and at bedtime with NovoLog coverage per scale hyperglycemia yesterday, spoke with pharmacy, gave NPH with dexamethasone today will use NPH 30 with Dexamethasone and monitor control low carb diet (6) Peripheral neuropathy: Continue gabapentin 300 mg p.o. 4 times daily. continue to hold meloxicam due to acute kidney injury (7) Gout: Continue allopurinol 300 mg daily (8) Dyslipidemia: Continue atorvastatin 40 mg every evening (9) Bladder mass: Admission and Anticipated Discharge Date Admission Date: March 13, 2020 Subjective patient doing well this morning, required oxygen over night, 1.5 liters, no distress this morning he is off oxygen, saturations 93% on room air at rest he is eating okay, coughing less with Robitussin, no fever/chills discussed going home, he is hesitant since he needed oxygen, I agreed that we should have him without oxygen for 24 hours reviewed labs, Cr down to 1.0, told RN to stop NSS electrolytes stable and LFT normal asked him about his who is in [facility] due to COVID and spine fracture, he is getting updates, frustrated to be far from her hoping to go home tomorrow Review of Systems Review of Systems: All systems reviewed & are unremarkable except as noted in Subjective Constitutional: + fatigue; no fever, no chills, no sweats and no weakness Respiratory: + dyspnea on exertion; no cough, no dyspnea and no sputum production Cardiovascular: no chest pain and no edema Gastrointestinal: no abdominal pain, no nausea, no vomiting, no constipation and no diarrhea/loose stools Physical Exam Constitutional: WD/WN, vitals as above ENMT: external ear and nose normal, oropharynx normal Neck: trachea midline, no thyromegaly Respiratory: normal respiratory effort and + cough; no respiratory distress and no labored breathing Auscultation: lungs clear to auscultation bilaterally Cardiovascular: RRR, no murmur, no edema Gastrointestinal (Abdomen): normal bowel sounds, soft, nontender, no hepatosplenomegaly Musculoskeletal: no cyanosis or clubbing, extremities motor strength 5/5 Skin: no rashes, warm and dry Neurologic: patellar DTR's 2+ bilat, sensation intact and PERRL, EOMI, accommodation nl, no face palsy, no dysarthria Psychiatric: A+Ox3, euthymic affect Lymphatic: no cervical or axillary lymphadenopathy Results & Data Results & Data ([facility]) Vital Signs (Past 12 Hours) Vital Signs Temp Pulse Pulse Resp BP Pulse Ox 03/15/20 09:30 95 03/15/20 08:26 36.7 C 64 16 135/82 95 03/15/20 07:30 63 03/15/20 03:10 98 03/15/20 03:09 36.8 C 60 14 104/57 L 98 03/15/20 01:44 57 L 03/15/20 01:08 36.4 C L 60 16 119/78 95 Laboratory Results Laboratory Results - last 24 hr 03/14/20 03/14/20 03/14/20 12:00 12:00 16:44 WBC RBC Hgb Hct MCV MCH MCHC RDW Std Deviation RDW Coeff of Baljinder Plt Count MPV Immature Gran % (Auto) Neut % (Auto) Lymph % (Auto) Dixie % (Auto) Eos % (Auto) Baso % (Auto) Neut # (Auto) Lymph # (Auto) Dixie # (Auto) Eos # (Auto) Baso # (Auto) Immature Gran # (Auto) Sodium Potassium Chloride Carbon Dioxide Anion Gap BUN Creatinine Est Cr Clr Drug Dosing Est GFR ( Amer) Est GFR (Non-Af Amer) BUN/Creatinine Ratio Glucose POC Glucose 319 H* 323 H* 241 H Calcium Magnesium Total Bilirubin AST ALT Alkaline Phosphatase Total Protein Albumin Globulin Albumin/Globulin Ratio 03/14/20 03/15/20 03/15/20 20:05 08:00 08:07 WBC 5.87 RBC 3.60 L Hgb 10.9 L Hct 33.0 L MCV 91.7 MCH 30.3 MCHC 33.0 RDW Std Deviation 44.7 RDW Coeff of Baljinder 13.3 Plt Count 202 MPV 11.9 H Immature Gran % (Auto) 0.3 Neut % (Auto) 76.5 Lymph % (Auto) 16.0 Dixie % (Auto) 7.0 Eos % (Auto) 0.0 Baso % (Auto) 0.2 Neut # (Auto) 4.49 Lymph # (Auto) 0.94 L Dixie # (Auto) 0.41 Eos # (Auto) 0.00 Baso # (Auto) 0.01 Immature Gran # (Auto) 0.02 Sodium Potassium Chloride Carbon Dioxide Anion Gap BUN Creatinine Est Cr Clr Drug Dosing Est GFR ( Amer) Est GFR (Non-Af Amer) BUN/Creatinine Ratio Glucose POC Glucose 215 H 181 H Calcium Magnesium Total Bilirubin AST ALT Alkaline Phosphatase Total Protein Albumin Globulin Albumin/Globulin Ratio 03/15/20 08:07 WBC RBC Hgb Hct MCV MCH MCHC RDW Std Deviation RDW Coeff of Baljinder Plt Count MPV Immature Gran % (Auto) Neut % (Auto) Lymph % (Auto) Dixie % (Auto) Eos % (Auto) Baso % (Auto) Neut # (Auto) Lymph # (Auto) Dixie # (Auto) Eos # (Auto) Baso # (Auto) Immature Gran # (Auto) Sodium 142 Potassium 3.9 Chloride 112 H Carbon Dioxide 22 Anion Gap 8.0 BUN 23 H Creatinine 1.08 Est Cr Clr Drug Dosing 75.9 Est GFR ( Amer) 80.7 Est GFR (Non-Af Amer) 69.7 BUN/Creatinine Ratio 21.7 H Glucose 191 H POC Glucose Calcium 8.1 L Magnesium 2.0 Total Bilirubin 0.2 AST 29 ALT 19 Alkaline Phosphatase 82 Total Protein 6.8 Albumin 2.7 L Globulin 4.1 H Albumin/Globulin Ratio 0.7 L Medications Administered Current Inpatient Medications Acetaminophen (Acetaminophen 325 Mg Tab) 650 mg PO Q4H PRN PRN Reason: Pain or Fever Stop: 04/12/20 23:57 Last Admin: 03/14/20 00:33 Dose: 650 mg Documented by: Albuterol (Albuterol Hfa 8 Gm Inhaler) 2 puffs INH QID PRN PRN Reason: Shortness Of Breath Or Wheezing Stop: 04/13/20 08:59 Allopurinol (Allopurinol 300 Mg Tab) 300 mg PO QAM [facility] Stop: 04/13/20 08:59 Last Admin: 03/15/20 09:41 Dose: 300 mg Documented by: Amlodipine Besylate (Amlodipine Besylate 5 Mg Tab) 10 mg PO QAM [facility] Stop: 04/13/20 08:59 Last Admin: 03/15/20 09:41 Dose: 10 mg Documented by: Aspirin (Aspirin 81 Mg Ectab) 81 mg PO QAM [facility] Stop: 04/13/20 08:59 Last Admin: 03/15/20 09:41 Dose: 81 mg Documented by: Atorvastatin Calcium (Atorvastatin 40 Mg Tab) 40 mg PO QPM [facility] Stop: 04/13/20 20:59 Last Admin: 03/14/20 20:43 Dose: 40 mg Documented by: Dextrose (Dextrose 50% 50 Ml Syringe) 25 - 50 ml IV UD PRN; Protocol PRN Reason: Hypoglycemia Protocol Stop: 04/12/20 23:57 Enoxaparin Sodium (Enoxaparin Inj 60 Mg/0.6 Ml Syr) 50 mg SQ Q12 [place] Stop: 04/13/20 08:59 Last Admin: 03/15/20 09:42 Dose: 50 mg Documented by: Gabapentin (Gabapentin 300 Mg Cap) 300 mg PO QID [facility] Stop: 04/13/20 08:59 Last Admin: 03/15/20 09:44 Dose: 300 mg Documented by: Glucagon (Glucagon For Inj 1 Mg Vial) 1 mg SQ UD PRN; Protocol PRN Reason: Hypoglycemia Protocol Stop: 04/12/20 23:57 Glucose (Glucose 10 Tabs/Tube) 4 - 8 tabs PO UD PRN; Protocol PRN Reason: Hypoglycemia Protocol Stop: 04/12/20 23:57 Glucose (Glucose 40% Gel 15 Gm Tube) 15 - 30 gm PO UD PRN; Protocol PRN Reason: Hypoglycemia Protocol Stop: 04/12/20 23:57 Guaifenesin/Codeine Phosphate (Guaifenesin/Codeine 200mg/20mg 10ml Udc) 10 ml PO Q6H PRN PRN Reason: Cough Stop: 04/13/20 18:05 Last Admin: 03/15/20 09:55 Dose: 10 ml Documented by: Ceftriaxone Sodium 2,000 mg/ (Dextrose) 70 mls @ 100 mls/hr IV Q24H MI; Protocol Stop: 03/21/20 00:00 Last Infusion: 03/15/20 02:04 Dose: Infused Documented by: Azithromycin 500 mg/ Dextrose 255 mls @ 125 mls/hr IV DAILY [facility] Stop: 03/21/20 08:59 Last Admin: 03/15/20 09:43 Dose: 125 mls/hr Documented by: Sodium Chloride (Nss 1000ml) 1,000 mls @ 100 mls/hr IV .Q10H MI Stop: 04/12/20 23:57 Last Admin: 03/15/20 05:33 Dose: 100 mls/hr Documented by: Remdesivir 100 mg/ Sodium (Chloride) 250 mls @ 250 mls/hr IV Q24H MI; Protocol Stop: 03/18/20 01:59 Last Infusion: 03/15/20 03:09 Dose: Infused Documented by: Dexamethasone 6 mg/ Syringe 1.5 mls @ 1 mls/min IV QAM MI; Protocol Stop: 04/13/20 14:29 Last Admin: 03/15/20 09:43 Dose: 1 mls/min Documented by: Insulin Aspart (Insulin Aspart 100 Units/Ml 3 Ml Pen) 0 units SC ACHS [facility] Stop: 04/13/20 07:29 Last Admin: 03/15/20 10:11 Dose: 5 units Documented by: Insulin Human NPH (Insulin Human Nph) 30 units SC QAM [facility] Stop: 04/14/20 09:29 Last Admin: 03/15/20 10:11 Dose: 30 units Documented by: Miscellaneous (Carbohydrates For Hypoglycemia ) 15 - 30 gm PO UD PRN PRN Reason: Hypoglycemia Protocol Stop: 04/12/20 23:57 Multivitamins (Multivitamin Tab) 1 tab PO QAM [place] Stop: 04/13/20 08:59 Last Admin: 03/15/20 09:41 Dose: 1 tab Documented by: Nitroglycerin (Nitroglycerin Sl 0.4 Mg/Tab Tab) 0.4 mg SL UD PRN PRN Reason: Chest Pain Stop: 04/12/20 23:57 Ondansetron HCl (Ondansetron Inj 2 Mg/Ml 2 Ml Vial) 4 mg IV Q6H PRN PRN Reason: Nausea Stop: 04/12/20 23:57 Oxycodone HCl (Oxycodone Hcl Ir 5 Mg Tab (Immediate Release)) 5 mg PO Q6H PRN PRN Reason: Pain, Severe Stop: 03/28/20 00:17 Sodium Chloride (Sodium Chloride 0.9% 10ml Flush) 30 ml IV Q24H [facility] Stop: 03/18/20 00:01 Last Admin: 03/15/20 01:59 Dose: 30 ml Documented by: Tramadol HCl (Tramadol Hcl 50 Mg Tablet) 50 mg PO Q6H PRN PRN Reason: Pain, Moderate Stop: 04/12/20 23:57 PG Care Time/CCT Total # of Minutes Spent Total Time Spent with Patient: Total time spent is greater than 50% in coordination of care (as documented) at patient's floor/unit and/or counseling patient: Coding Level of Care Code 40385 Subseq Hosp Care Lvl 3 Diagnoses Pneumonia due to COVID-19 virus U07.1; J12.89 Hypoxia R09.02 Bronchospasm J98.01 Acute kidney injury N17.9 DM w/o complication type II, uncontrolled E11.65 Peripheral neuropathy G62.9 Gout M10.9 Dyslipidemia E78.5 Bladder mass N32.89
[2020-03-15] MEDS: ATORVASTATIN 40 MG TAB PO SCH (21:14)
[2020-03-16] MEDS: REMDESIVIR 100 MG in SODIUM CHLORIDE 0.9% 230 ML IV SCH (00:19)
[2020-03-16] MEDS: SODIUM CHLORIDE 0.9% 10ML FLUSH IV SCH (01:17)
[2020-03-16 06:17] LABS: Basophils # (auto) 0.02 K/uL (0-0.2); Basophils % (auto) 0.3 %; Hematocrit (blood only) 36.7 % (42-52); Hemoglobin 12.2 g/dL (14.0-18.0); Immature Granulocytes # (auto) 0.02 K/uL (0.00-0.02); Immature Granulocytes % (auto) 0.3 %; Lymphocytes # (auto) 1.03 K/uL (1.2-3.4); Lymphocytes % (auto) 17.1 %; Mean Corpuscular Hemoglobin 30.1 pg (25-34); Mean Corpuscular Hgb Conc 33.2 g/dL (32-36); Mean Corpuscular Volume 90.6 fL (80-100); Mean Platelet Volume 11.8 fL (7.4-10.4); Monocytes # (auto) 0.47 K/uL (0.11-0.59); Monocytes % (auto) 7.8 %; Neutrophils # (auto) 4.47 K/uL (1.4-6.5); Neutrophils % (auto) 74.5 %; Platelet Count 232 K/uL (130-400); RDW Coefficient of Variation 13.3 % (11.5-14.5); RDW Standard Deviation 43.8 fL (36.4-46.3); Red Blood Count 4.05 M/uL (4.7-6.1); White Blood Count 6.01 K/uL (4.8-10.8)
[2020-03-16 06:50] LABS: Albumin Level 2.8 gm/dl (3.4-5.0); BUN Creatinine Ratio 21.2 (10-20); Calcium 8.5 mg/dl (8.5-10.1); Creatinine Clr Calc Pharmacy 66.6 ml/min; Est GFR (Non-African American) 59.5; Magnesium 1.9 mg/dl (1.8-2.4); Potassium 3.8 mmol/L (3.5-5.1)
[2020-03-16 06:53] LABS: Albumin Globulin Ratio 0.6 (0.9-2); Bilirubin,Total 0.2 mg/dl (0.2-1); Globulin 4.3 gm/dl (2.5-4.0); Total Protein 7.1 gm/dl (6.4-8.2)
[2020-03-16] MEDS: allopurinoL 300 MG TAB PO SCH (08:52)
[2020-03-16] MEDS: dexAMETHasone 6 MG in SYRINGE 0 ML IV SCH (08:52)
[2020-03-16] MEDS: GABAPENTIN 300 MG CAP PO SCH (08:53)
[2020-03-16] MEDS: ASPIRIN 81 MG ECTAB PO SCH (08:53)
[2020-03-16] MEDS: amLODIPine BESYLATE 5 MG TAB PO SCH (08:53)
[2020-03-16] MEDS: MULTIVITAMIN TAB PO SCH (08:53)
[2020-03-16] MEDS: ENOXAPARIN INJ 60 MG/0.6 ML SYR SQ SCH (08:54)
[2020-03-16] MEDS: AZITHROMYCIN 500 MG in DEXTROSE 5% 250 ML IV SCH ×2 (08:56→11:03)
[2020-03-16] MEDS: INSULIN ASPART 100 UNITS/ML 3 ML PEN SC SCH (09:21)
[2020-03-16] MEDS: INSULIN HUMAN NPH SC SCH (09:21)
--- NOTE | 2020-03-16 09:21 | Discharge Summary ---
Date of Service March 16, 2020 Admission HPI Per Admitting Provider The patient is a 69-year-old male with a past medical history including bladder mass, gout, hypertension, bronchospasm, neurogenic claudication due to lumbar spinal stenosis, diabetes mellitus type 2, history of total knee arthroplasty, right middle lobe pneumonia, greater trochanteric bursitis of both hips, peripheral neuropathy and lumbar spinal stenosis. He reports that his is presently hospitalized at [facility], and his daughter is currently hospitalized at [facility], with pneumonia due to COVID-19. The patient was tested in the emergency department this evening, and is positive for COVID-19 infection. In the emergency department he received Decadron 6 mg IV, normal saline 1 L, and Hycodan syrup 10 mL p.o. Principal Diagnosis COVID 19 pneumonia Discharge Exam Constitutional WD/WN, vitals as above ENMT external ear and nose normal, oropharynx normal Neck trachea midline, no thyromegaly Respiratory normal respiratory effort and + cough; no respiratory distress and no labored breathing Auscultation: lungs clear to auscultation bilaterally Cardiovascular RRR, no murmur, no edema Gastrointestinal (Abdomen) normal bowel sounds, soft, nontender, no hepatosplenomegaly Musculoskeletal no cyanosis or clubbing, extremities motor strength 5/5 Skin no rashes, warm and dry Neurologic patellar DTR's 2+ bilat, sensation intact and PERRL, EOMI, accommodation nl, no face palsy, no dysarthria Psychiatric A+Ox3, euthymic affect Lymphatic no cervical or axillary lymphadenopathy Discharge Data Allergies Allergy/AdvReac Type Severity Reaction Status Date / Time No Known Allergies Allergy Verified 03/13/20 21:41 Consultations 03/13/20 21:16 ED Decision to Admit Stat 03/13/20 23:58 Consult Case Management - Discharge Planning Routine Hospital Course (1) Pneumonia due to COVID-19 virus: Pneumonia due to COVID-19 virus with hypoxia and bronchospasm- Decadron 6 mg IV daily x 10 days, today is day 4 Remdesivir daily x 5 days, today is day 4, will discharge to home as he is stable on room air, no need for further Remdesivir Convalescent plasma administered, tolerated well Ceftriaxone 2 g IV daily and Azithromycin 500 mg IV daily started on admission, complete 5 days of treatment will change to Zithromax 500mg daily x 2 more days on discharge Ventolin HFA 2 puffs 4 times daily, and every 2 hours as needed patient has remained off oxygen for over 24 hours, no distress, he feels ready to go home will prescribe Dexamethasone 6mg PO daily x 6 more days Codeine 10mL PRN for cough Zithromax 500mg daily x 2 more days remain in quarantine for 7 more days, stay well hydrated and well nourished (2) Hypoxia: acute respiratory failure with hypoxia increased work of breathing at rest, 87% on room air on admission, due to COVID pneumonia breathing easier past two days, has been on room air for over 24 hours (3) Bronchospasm: See above no wheezing on exam today (4) Acute kidney injury: Creatinine 1.82 upon admission, baseline 1.24. Hold for losartan/HCTZ, meloxicam and metformin. NSS 100 mils per hour. Cr improved to 1.0, electrolytes stable, stop fluids will resume Losartan/HCTZ as BP is elevated (5) DM w/o complication type II, uncontrolled: Hold glipizide and Metformin. Placed in Accu-Cheks before meals and at bedtime with NovoLog coverage per scale used NPH insulin 30 units with dexamethasone to blunt hyperglycemia effects, worked well in the hospital will resume Glipizide and Metformin on discharge prescribed NPH insulin 30 units to use for 6 days with the dexamethasone, RN instructed him on how to use it he says he will likely not use it, explained that it is needed to hep prevent hyperglycemia (6) Peripheral neuropathy: Continue gabapentin 300 mg p.o. 4 times daily. (7) Gout: Continue allopurinol 300 mg daily (8) Dyslipidemia: Continue atorvastatin 40 mg every evening (9) Bladder mass: Total Time Total Time Spent Total Time Spent (In Minutes): 35 minutes Total Time Includes: Examination of the Patient, Discharge Planning and Medication Reconciliation Discharge Plan Discharge Items Patient Disposition: Home - Self-Care Reason For Visit: COVID - 19 PNEUMONIA WITH HYPOXIA Discharge Diagnosis: COVID 19 pneumonia Condition on Discharge: Good Goals: complete course of Dexamethasone and antibiotics stay well hydrated, well nourished, get rest Activity: Resume your previous activity Non-emergency contact: Primary Care Provider Call non-emergency contact if: you have any medication questions, your symptoms worsen and you have a fever Follow-up/Referrals: Delores Troncoso CRNP [Primary Care Provider] - (two weeks) Diet: Carb Consistent or DM2 and Heart Healthy Addtl Attending Provider Instructions: Medications: - DEXAMETHASONE: 6mg every morning for 6 more days - INSULIN NPH: give 30 units (0.3mL) every morning with the dexamethasone to help offset any hyperglycemia effects - ZITHROMAX: 500mg daily for two more days, start tomorrow morning - CODEINE/GUAIFENESIN: take 10mL every 6 hours as needed for cough COVID 19 pneumonia with hypoxia recovering quickly, off of oxygen for 24 hours complete course of Dexamethasone and Zithromax stay well hydrated, well nourished, get rest you need to remain in quarantine 10 days from positive test which would be 03/23, you tested positive on 03/13 use Codeine as needed for cough Diabetes: resume home regimen of metformin and glipizide recommend that you use NPH Insulin 30 units every morning at the same time to take dexamethasone to prevent hyperglycemia use the NPH for 6 days then stop Pending Studies at Discharge: No Stand-Alone Forms: [facility], Smoking Cessation Medications and DC Order Prescriptions: New codeine-guaifenesin 10-100 mg/5 mL Liquid 10 ml PO Q6H PRN (Reason: cough) Qty: 240 RF: 0 dexamethasone 2 mg tablet 6 mg PO DAILY 6 Days Qty: 18 RF: 0 azithromycin [Zithromax] 500 mg tablet 500 mg PO DAILY 2 Days Qty: 2 RF: 0 Humulin N NPH Insulin KwikPen 100 unit/mL (3 mL) insulin pen 30 unit subcut QAM 6 Days Qty: 3 RF: 0 Continued atorvastatin 40 mg tablet 40 mg PO QPM RF: 0 fluticasone propionate 50 mcg/actuation spray,suspension 2 sprays INTNAS DIRECTED PRN (Reason: Congestion) RF: 0 losartan-hydrochlorothiazide 100-12.5 mg tablet 1 tab PO QAM RF: 0 metformin 1,000 mg tablet 1,000 mg PO BID RF: 0 gabapentin 300 mg capsule 300 mg PO QID Qty: 360 RF: 1 amlodipine 10 mg Tablet 10 mg PO QAM RF: 0 allopurinol 300 mg Tablet 300 mg PO QAM RF: 0 coQ10 (ubiquinol) 200 mg Capsule 200 mg PO QAM RF: 0 Proaxil 1 tab PO QAM RF: 0 turmeric root extract 500 mg Capsule 500 mg PO QAM RF: 0 meloxicam 7.5 mg tablet 7.5 mg PO BID RF: 0 glipizide 2.5 mg tablet extended release 24hr 2.5 mg PO BID RF: 0 tramadol 50 mg tablet 50 mg PO Q6H PRN (Reason: Pain, Moderate) RF: 0 oxycodone 5 mg tablet 5 mg PO Q6H PRN (Reason: Pain, Severe) RF: 0 multivitamin Tablet 1 tab PO QAM RF: 0 aspirin [Aspirin Low Dose] 81 mg Tablet,Delayed Release (Dr/Ec) 81 mg PO QAM RF: 0 Discharge Orders: Discharge Order (Routine); Ordered 03/16/20 Ordered By: Andres Archuleta Admission Data Admit Date/Time: 03/13/20 22:07 Attending Provider: Andres Archuleta Admit Provider: Elder Galvez Primary Care Provider: Delores Troncoso Other Providers: Elder Galvez Other Interventions: Discharge Summary Assessment (RN) Last Done: 03/16/20 09:31 Coding Level of Care Code D/C Day Management >30 mins Diagnoses Pneumonia due to COVID-19 virus U07.1; J12.89 Hypoxia R09.02 Bronchospasm J98.01 Acute kidney injury N17.9 DM w/o complication type II, uncontrolled E11.65 Peripheral neuropathy G62.9 Gout M10.9 Dyslipidemia E78.5 Bladder mass N32.89
== END 2020-03-16 11:02 | disposition home or self-care (01) | DRG 177 ==
LOC: ED 19:13 → SUATTDRO 22:07 → 2W 22:07

== ENCOUNTER 2023-09-23 06:40 | Observation (INO) ==
--- NOTE | 2023-08-30 12:05 | PAT Medication Instructions ---
Medication Instructions Date of Service August 30, 2023 Home Medications atorvastatin 40 mg tablet 40 mg PO QPM fluticasone propionate 50 mcg/actuation nasal spray,suspension 2 sprays intranasal DIRECTED PRN losartan 100 mg-hydrochlorothiazide 12.5 mg tablet 1 tab PO QAM metformin 1,000 mg tablet 1,000 mg PO BID amlodipine 10 mg tablet 10 mg PO QAM aspirin 81 mg tablet,delayed release (Pablo Low Dose Aspirin) 81 mg PO QAM glipizide 2.5 mg tablet, extended release 24 hr 2.5 mg PO BID multivitamin 1 tab PO QAM gabapentin 300 mg capsule See Rx Instructions .Route .COMPLEX loratadine 10 mg tablet 10 mg PO BID allopurinol 300 mg tablet 300 mg PO QAM Continue as directed gabapentin 300 mg capsule See Rx Instructions .Route .COMPLEX fluticasone propionate 50 mcg/actuation nasal spray,suspension 2 sprays intranasal DIRECTED PRN(if needed) ASK your prescriber and surgeon aspirin 81 mg tablet,delayed release (Pablo Low Dose Aspirin) 81 mg PO QAM DO NOT take the morning of surgery losartan 100 mg-hydrochlorothiazide 12.5 mg tablet 1 tab PO QAM metformin 1,000 mg tablet 1,000 mg PO BID glipizide 2.5 mg tablet, extended release 24 hr 2.5 mg PO BID multivitamin 1 tab PO QAM loratadine 10 mg tablet 10 mg PO BID Take morning of surgery With a small sip of water, OTHERWISE NOTHING TO EAT OR DRINK AFTER MIDNIGHT: amlodipine 10 mg tablet 10 mg PO QAM allopurinol 300 mg tablet 300 mg PO QAM Take evening before surgery atorvastatin 40 mg tablet 40 mg PO QPM metformin 1,000 mg tablet 1,000 mg PO BID glipizide 2.5 mg tablet, extended release 24 hr 2.5 mg PO BID loratadine 10 mg tablet 10 mg PO BID Other Notes If you have any questions please call us at [phone] or [phone] or [phone] or [phone]
--- NOTE | 2023-09-02 11:43 | Anesthesiology Consultation ---
Date of Service September 02, 2023 Assessment & Plan (1) Encounter for pre-operative examination: - check BSG am DOS. - Outpatient joint assessment: Patient is currently scheduled for inpatient pathway. If re-evaluated and patient/surgeon requests outpatient pathway, patient is acceptable candidate for outpatient joint program from anesthesia standpoint pending surgeon's office assessment of pt motivation/support/completion of same day joint program preop requirements. Chart Review Chart Review: Acceptable Risk for Surgery and Patient seen in Pre Admission Testing Teaching & Discussion Pre-Anesthesia Teaching/Discussion Notes: Instructed NPO after midnight before surgery, except medications with 15 cc of water. Medication instructions provided according to the PAT guidelines. History Surgery Operation Date: 09/23/23 10:40 Proposed Procedures p Left Total Knee Arthroplasty - Malick Piper MD Height/Weight Height: 5 ft 10 in Weight: 94.6 kg Allergies Allergy/AdvReac Type Severity Reaction Status Date / Time No Known Allergies Allergy Verified 08/30/23 08:23 Medications Home Medications Medication Instructions Recorded Confirmed Last Taken atorvastatin 40 mg tablet 40 mg PO QPM 10/23/19 08/30/23 12/24/22 fluticasone propionate 50 2 sprays intranasal DIRECTED 10/23/19 08/30/23 12/25/22 mcg/actuation nasal PRN Congestion spray,suspension losartan 100 1 tab PO QAM 10/23/19 08/30/23 12/25/22 mg-hydrochlorothiazide 12.5 mg tablet metformin 1,000 mg tablet 1,000 mg PO BID 10/23/19 08/30/23 12/25/22 amlodipine 10 mg tablet 10 mg PO QAM 12/07/19 08/30/23 12/25/22 aspirin 81 mg tablet,delayed 81 mg PO QAM 03/13/20 08/30/23 12/25/22 release (Pablo Low Dose Aspirin) glipizide 2.5 mg tablet, extended 2.5 mg PO BID 03/13/20 08/30/23 12/25/22 release 24 hr multivitamin 1 tab PO QAM 03/13/20 08/30/23 12/25/22 gabapentin 300 mg capsule See Rx Instructions .Route .COMPLEX 09/10/20 08/30/23 12/25/22 loratadine 10 mg tablet 10 mg PO BID 09/10/20 08/30/23 12/25/22 allopurinol 300 mg tablet 300 mg PO QAM 08/30/23 08/30/23 Unknown Past Medical History Medical History BPH w urinary obs/LUTS Cervical fusion syndrome limited rom Chronic sinusitis CKD (chronic kidney disease) pt denies Diabetes mellitus, type 2 NIDDM History of COVID-19 diagnosed 03/13/20--had cough, severely fatigued, loss of taste--was admitted at 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 Exercise / Class Metabolic Activity II 4-5 Yardwork/Stairs/Walk up hill (denies chest discomfort or shortness of breath with one flight of stairs, ambulates with cane) Past Family History Family History Mother Family hx of colon cancer Family history of diabetes mellitus Sister Family history of diabetes mellitus Other Diabetes No family history of adverse response to anesthesia Stroke Past Surgical History Surgical History H/O cervical spine surgery limited rom H/O nasal septoplasty History of arthroscopy right knee History of cataract surgery right/left History of colonoscopy History of fusion of cervical spine limited rom History of lumbar fusion History of repair of rotator cuff RIGHT History of tooth extraction Hx of total knee replacement right Past Anesthesia History No Hx of Anesthesia Complications and No Family Hx of Anesthesia Complications History of PONV No Hx of PONV and No Hx of Motion Sickness Social History Smoking Status: Former smoker tobacco type: smokeless tobacco Do You Dip or Chew Tobacco: Yes (advised) Smoking End Date: at age 35 Hx Alcohol Use: Yes Alcohol type: beer alcohol intake frequency: a few times a week substance use type: does not use Review of Systems Patient denies chest pain, shortness of breath, dyspnea on exertion, snoring, witnessed apneas, reflux, fever, chills, cough, wheezing, or palpitations. Physical Exam Vital Signs Vitals BP 110/75 P 65 TEMP 98.1 SP02 98% on RA RESP 18 Physical Patient resting comfortably in chair in no acute distress, alert and oriented, responding appropriately throughout visit Limited cervical extension range of motion without pain TMD 3.5 finger breadths Mallampati Score 2 Dentition: intact, denies chipped or loose teeth, caps/crowns, implants or bridges Lungs: normal respiratory effort. Good air movement, clear throughout to auscultation, no adventitious breath sounds Cardiac: regular rate and rhythm, no murmurs noted Carotid arteries: negative bruit bilat Lab Results Anesthesia Preop Results Results Anesthesia Widget: WBC 7.07 K/ul (4.8-10.8) 09/02/23 Hgb 12.4 g/dl (14.0-18.0) L 09/02/23 Hct 37.7 % (42.0-52.0) L 09/02/23 Plt 240 K/uL (130-400) 09/02/23 Na 140 mmol/L (136-145) 09/02/23 K 4.9 mmol/L (3.5-5.1) 09/02/23 Cl 104 mmol/L (98-107) 09/02/23 CO2 30 mmol/L (21-32) 09/02/23 BUN 24 mg/dl (6-23) H 09/02/23 Creat 1.30 mg/dl (0.6-1.4) 09/02/23 Glucose Level 140 mg/dl (70-99(Fasting)) H 09/02/23 PT 10.4 Seconds (9.0-12.0) 09/02/23 PTT 25 Seconds (21-31) 09/02/23 INR 1.0 (0.9-1.1) 09/02/23 HA1c 6.8 % (4.5-5.6) H 09/02/23 Blood Type A Positive 09/02/23 Antibody Screen NEGATIVE 09/02/23 Testing Electrocardiogram Date: 09/02/23 Sinus bradycardia, rate 59 bpm Chest X-Ray Date: 09/02/23 No active disease in the chest. Other Testing Abdomen pelvis CT 12/25/22 1. No acute infectious or inflammatory findings are identified in the abdomen or pelvis. Specifically, there is no abnormality in the left ventral pelvis at the indicated site of interest. 2. There is an indeterminate 4 cm intraluminal foreign body within a loop of small bowel in the right mid abdomen. 3. No bowel obstruction. 4. Left-sided nephrolithiasis. 5. Lucency around the interpedicular screws in S1 suggests hardware loosening. 6. Additional findings as above.
[~2023-09-23 06:40] MED LIST changes: -ACETAMINOPHEN 500 MG TAB PO SCH; +BUPIVACAINE 0.5 % 5 MG/1 ML PF 10ML VIAL ONE; -CEFAZOLIN 2000MG 2,000 MG/15 ML SYR IV SCH; -CeleBREX 200 MG CAP PO SCH; -GABAPENTIN 300 MG CAP PO SCH; -LR 15ML/HR IV SCH; +ROPIVACAINE 0.5% 5 MG/ML 30 ML VIAL ONE
--- NOTE | 2023-09-23 06:46 | History & Physical Bridge Note ---
Date of Service September 23, 2023 History & Physical Bridge Note I have examined the patient, reviewed the History & Physical and in the interval since the performance of the History & Physical I have noted the following changes of clinical significance: no changes noted
[2023-09-23] MEDS ORDERED: MIDAZOLAM HCL 1 MG/ML 2ML VIAL ONE (07:55)
[2023-09-23] MEDS ORDERED: fentaNYL citrate PF 100 MCG/2 ML VIAL ONE (07:55)
[2023-09-23] MEDS: ACETAMINOPHEN 500 MG TAB PO SCH ×2 (07:59→13:58)
[2023-09-23] MEDS: METOCLOPRAMIDE HCL 10 MG TABLET PO SCH (07:59)
[2023-09-23] MEDS: FAMOTIDINE 20 MG TAB PO SCH (07:59)
[2023-09-23] MEDS: LR 500ML BOLUS, THEN 15ML/HR IV SCH (08:00)
[2023-09-23] MEDS: CeleBREX 200 MG CAP PO SCH (08:00)
[2023-09-23] MEDS: LR 60ML/HR IV SCH (08:00)
[2023-09-23] MEDS ORDERED: ATROPINE SULFATE 0.1 MG/ML 10ML SYR IV PRN (08:24)
[2023-09-23] MEDS ORDERED: ePHEDrine sulfate 50 MG/ML AMP IV PRN (08:24)
[2023-09-23] MEDS ORDERED: DROPERIDOL 5 MG/2 ML VIAL IV PRN (08:24)
[2023-09-23] MEDS ORDERED: fentaNYL citrate PF 100 MCG/2 ML VIAL IV PRN (08:24)
[2023-09-23] MEDS: TRANEXAMIC ACID 1,000 MG **IV Intra-op IV SCH (09:07)
[2023-09-23] MEDS: ceFAZolin 2000MG 2,000 MG/15 ML SYR IV SCH ×2 (09:26→17:23)
[2023-09-23] MEDS ORDERED: PROPOFOL IV EMULSION 10 MG/ML 20 ML VIAL IV ONE (09:39)
[2023-09-23] MEDS: ORTHO JOINT ANESTHETIC ONE (10:16)
[2023-09-23] MEDS: ROPIV 0.5% 246mg, Ketorolac 30mg, EPINEPHrine 0.5mg in NSS INFIL SCH (10:17)
--- NOTE | 2023-09-23 10:58 | Operative Report ---
PG Post Operative Report Pre & Post Diagnosis Operation Date: 09/23/23 08:50 Pre-Op Diagnosis: Degenerative Joint Disease, Left Knee Post-Op Diagnosis: Degenerative Joint Disease, Left Knee I identified the patient and participated in the time-out.: Yes Procedure Operation Date: 09/23/23 08:50 Actual Procedures p Left Total Knee Arthroplasty(Left) - Malick Piper MD Surgeon Malick Piper MD Mailing Jogger Robbi Booker PA-C Estimated Blood Loss 50 Findings Consistent with Post-Op Diagnosis Operative findings revealed advanced left knee medial compartment DJD. He had grade 4 [id number] disease of the medial femoral condyle medial tibial plateau. Not much in the way of eburnation of the bone but complete full- thickness cartilage loss. 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 Moderate-sized joint effusion. He did have about a 10 degree flexion contracture. Specimens Left knee sent for pathology. Anesthesia Type Spinal MAC Complications none Indications The patient is a 72-year-old gentleman has had a long history of knee pain and discomfort. He had right knee replaced in the past was done well with this. Over the years he developed increased pain discomfort in his left knee. Failed conservative measures. X-rays show advanced medial compartment arthritis. He elected proceed with surgical management. He did have a slight flexion contracture of 10 to 15 degrees. Fairly large prominent bipartite patella. Description of Procedure Operative implants consist of: 1 Biomet Vanguard size 72.5 left posterior stabilized femoral component. 2. Biomet size 79 tibial tray. 3. 10 mm posterior stabilized polyethylene insert. 4. 31 x 8 all poly patella. The patient was taken to the operating, identified, placed on the operating table in the supine position. All contact areas were appropriately padded. IV antibiotics tried by anesthesia team. Spinal anesthetic and been implemented holding area along with an adductor canal block. A left thigh tent was then p laced. The left lower extremity was then prepped and draped in usual sterile fashion. The left leg was elevated and exsanguinated with use of an Esmarch and the turn was placed at 300 mmHg. An anterior approach the left knee was then performed to longitudinal incision centered over the patella. Sharp dissection was carried through subcutaneous tissue down the extensor mechanism. A medial para patellar arthrotomy incision was made. Some subperiosteal dissection was carried out medially. The fat pad was dissected from Neath patella tendon. The lateral patellofemoral ligament was released. Patella subluxated laterally and the was flexed. The osteophyte taken on distal femur. The ACL and PCL were then released on distal femur and the tibia subluxated anteriorly. The external treatment line jig was then placed on the anterior face the tibia and adjusted 14 mm medially. Proximal tibial cut was made remove about 2 to 3 mm of bone from the medial side. The tibia sized to a size 79. Attention drawn the femur. The distal femur Zaro the sharp drill. Intramedullary canal was suction. A left 6 degree valgus cutting guide was placed. The distal femoral cutting block was pinned in place. Distal femoral cut was made take an additional 3 mm of bone off distal femur. The femur was then sized to a size 72.5. We did downsize this. The AP cutting block was pinned parallel to the epicondylar axis which was 5 degrees of external rotation. The anterior cut, anterior chamfer, posterior cut, posterior chamfer cuts were made. The box cutting guide was placed in just slight lateral and the box cut was made. The knee was flexed. The remnants of the medial and lateral menisci were excised. The osteophytes were taken off the posterior aspect the femur. A trial femoral component was placed. The tibial tray was pinned in Karlene external rotation and the drill and stem punch used to create defect in proximal tibia for the tibial tray. Knee was then trialed and the 10 mm insert fit most appropriately. Attention drawn the patella. The patella was cleaned of all soft tissues. Patella thickness measured 25 mm. I due to the large bipartite patella I did have a little trouble everting this so I had to remove the tibial tray to allow a little lateral laxity in the extensor mechanism. We I did cut the patella down to a about 15 mm in thickness. I did leave a little thicker bags because after I cut this the bipartite portion of the patella was very prominent and I had excised the bipartite patella component. I very carefully saucerized this out of the quad tendon. We therefore left the patella little bit thicker as I did not want to disrupt anymore the quad tendon. The patella was sized to a size 31. The lug holes were drilled for 31 patella. The lateral osteophyte was removed. Patella button was placed. Knee was taken through range of motion and the patella tracked nicely with no thumbs test. Attention drawn toward placing the permanent components. All trial components were removed. Bone plug was placed in distal femur limit blood loss. Double batch Palacos G cement was mixed. A Biomet Vanguard size 72.5 left posterior Byce femoral component, size 79 tibial tray, a 10 mm post stabilized polyethylene insert, and a 31 x 8 all poly patella then cemented in place. Knee was brought out into full extension till cement hardened. Final ce ment check was then performed. The pericapsular tissues were injected with a total of 100 cc of Ortho mix. The patient did receive 1 g tranexamic acid. The tourniquet was then let down for final tourniquet time of 62 minutes. Hemostasis assured use electrocautery. Extensor Meclomen closed with combination 1 PDS suture #1 Vicryl suture in [id number] fashion. Extensor Meclomen checked found to be intact the subcutaneous tissue then closed with 2 Dexon suture in a buried interrupted fashion skin was closed skin nelly. Leg was then cleaned and dried and a sterile dressing with Xeroform, 4 fours, sterile cast padding, Varun bandage were applied. Patient then transferred to the recovery in stable condition. The patient tolerated the procedure well and there were no complications. Robbi Booker, my physician district administrative assistant, was present for the entire procedure. His assistance was essential and required for appropriate patient positioning, prepping and draping, surgical exposure, performing the technical details of the operation, placement the implants, closure of the wound, and placement of the sterile bandage. I attest to the content of the Intraoperative Record and any orders documented therein. Any exceptions are noted below.
[2023-09-23] MEDS ORDERED: GLUCOSE 40% GEL 15 GM TUBE PO PRN (12:00)
[2023-09-23] MEDS ORDERED: GLUCOSE 10 TAB/TUBE PO PRN (12:00)
[2023-09-23] MEDS ORDERED: MAGNESIUM HYDROXIDE SUSP 30 ML UDC PO PRN (12:00)
[2023-09-23] MEDS ORDERED: bisacodyL 10 MG SUPP PR PRN (12:00)
[2023-09-23] MEDS ORDERED: NO NSAIDS SCH (12:00)
[2023-09-23] MEDS ORDERED: ALUMINUM/MAGNESIUM SUSP 30 ML UDC PO PRN (12:00)
[2023-09-23] MEDS ORDERED: METOCLOPRAMIDE HCL INJ 5 MG/ML 2 ML VIAL IV PRN (12:00)
[2023-09-23] MEDS ORDERED: ONDANSETRON INJ 2 MG/ML 2 ML VIAL IV PRN (12:00)
[2023-09-23] MEDS ORDERED: GLUCAGON FOR INJ 1 MG VIAL SQ PRN (12:00)
[2023-09-23] MEDS ORDERED: FLUTICASONE PROPIONATE NA SPR 16 GM BTL NAE PRN (12:00)
[2023-09-23] MEDS ORDERED: HYDROmorphone INJ 0.5 MG/0.5 ML SYR IV PRN (12:00)
[2023-09-23] MEDS ORDERED: NALOXONE HCL 0.4 MG/1 ML VIAL/CARP IV PRN (12:00)
[2023-09-23] MEDS ORDERED: CARBOHYDRATES FOR HYPOGLYCEMIA PO PRN (12:00)
[2023-09-23] MEDS ORDERED: DEXTROSE 50% 50 ML SYRINGE IV PRN (12:00)
[2023-09-23] MEDS ORDERED: PHARMACY GLYCEMIC MGMT CONSULT PRN (12:00)
--- NOTE | 2023-09-23 12:09 | XRay Report ---
XR knee LT 1 or 2V routine HISTORY: 72 years-old Male Surgical Post Op left knee arthroplasty COMPARISON: 07/04/2023 TECHNIQUE: 2 views of the left knee FINDINGS: Total joint arthroplasty with patellar resurfacing. Anterior midline skin nelly with expected posto perative soft tissue swelling and deep tissue air. Dystrophic calcifications of the distal quadriceps tendon redemonstrated. IMPRESSION: Total joint arthroplasty with expected postoperative changes. ACT 112: Negative or not required by law. The above report was generated using voice recognition software. It may contain grammatical, syntax o r spelling errors. Electronically signed by: Zion Koch M.D. 09/23/2023 12:08 PM
[2023-09-23] MEDS: SODIUM CHLORIDE 0.9% 1,000 ML IV SCH (12:10)
[2023-09-23] MEDS: INSULIN ASPART PER UNIT CHARGE SC SCH (12:55)
--- NOTE | 2023-09-23 13:39 | Anesthesiology Progress Note ---
Date of Service September 23, 2023 Anesthesia Post Procedure Vital Signs Vital Signs: Temp Pulse Pulse Resp BP BP Pulse Ox 09/23/23 12:57 67 16 128/74 100 09/23/23 12:27 36.5 C 64 16 116/69 100 09/23/23 12:01 36.6 C 63 16 115/70 98 09/23/23 11:40 62 12 120/54 L 95 09/23/23 11:25 37.0 C 69 12 107/54 L 96 09/23/23 11:15 70 18 112/54 L 100 09/23/23 11:05 73 20 98/49 L 98 09/23/23 10:55 36.8 C 89 16 92/53 L 100 09/23/23 07:46 36.8 C 78 20 125/77 99 O2 Del Method O2 Flow Rate 09/23/23 12:57 Room Air 09/23/23 12:27 Room Air 09/23/23 12:01 Room Air 09/23/23 11:40 Room Air 09/23/23 11:25 Room Air 09/23/23 11:15 Oxymask 4 09/23/23 11:05 Oxymask 4 09/23/23 10:55 Oxymask 6 09/23/23 07:46 Room Air Notes Mental Status: alert / awake / arousable Patient Amnestic to Procedure: Yes Nausea / Vomiting: adequately controlled Pain: adequately controlled Airway Patency, RR, SpO2: stable & adequate BP & HR: stable & adequate Hydration State: stable & adequate Neuraxial Anesthesia: was administered and sensory block is resolving Anesthetic Complications: no major complications apparent
--- NOTE | 2023-09-23 14:13 | Pharmacy Report ---
Pharmacy Glycemic Short Note 2 - Date of Service September 23, 2023 - Glycemic Short BSG Results (Last 24 hours): 09/23/23 09/23/23 09/23/23 07:16 10:59 12:25 POC Glucose 136 H 124 H 136 H OUTPATIENT ANTIDIABETIC REGIMEN: * glipizide 2.5 mg PO BID * metformin 1000 mg PO BID * A1c = 6.8% (09/02/23) ASSESSMENT: * Michael is a 72 yo T2DM s/p L TKA. * Patient is maintained on oral agents as an outpatient with good glycemic control evidenced by A1c of 6.8%. * Fasting BSG of 136 mg/dL this morning. Will hold off on basal insulin today. * He is ordered a one time dose of dexamethasone 10 mg IV to be given POD #1. Will likely give a one time dose of basal insulin to assist in the coverage of steroid induced hyperglycemia. PLAN FOR INPATIENT GLYCEMIC CONTROL: * Hold outpatient oral diabetes medications * Basal insulin * none for 09/22 * Bolus insulin * NovoLog per scale ACHS or Q6hrs while NPO * Goal Range: Low 110 mg/dL - High 140 mg/dL * Correction Factor: 25 mg/dL/unit * Nutritional / Prandial insulin per carb ratio of 1 unit per 9 grams CHO consumed
[2023-09-23] MEDS: TRANEXAMIC ACID / 0.7% NACL 1,000 MG/100 ML BAG IV SCH (17:23)
[2023-09-23] MEDS: ASCORBIC ACID 500 MG TAB PO SCH (17:23)
[2023-09-23] MEDS: GABAPENTIN 300 MG CAP PO SCH (20:48)
[2023-09-23] MEDS: DOCUSATE SODIUM 100 MG CAP PO SCH (20:49)
[2023-09-23] MEDS: ATORVASTATIN 40 MG TAB PO SCH (20:49)
[2023-09-23] MEDS: ASPIRIN 81 MG ECTAB PO SCH (20:51)
[2023-09-23] MEDS: SENNA 8.6 MG TAB PO SCH (20:52)
[2023-09-23] MEDS: LORATADINE 10 MG TAB PO SCH (20:52)
[2023-09-23] MEDS ORDERED: glipiZIDE ER 2.5 MG TABCR PO SCH (21:00)
[2023-09-23] MEDS ORDERED: SENNA 8.6 MG TAB PO SCH (21:00)
[2023-09-23] MEDS: traMADol HCL 50 MG TABLET PO PRN (23:38)
[2023-09-24 07:04] LABS: Hematocrit (blood only) 32.4 % (42.0-52.0); Hemoglobin 10.9 g/dl (14.0-18.0); Mean Corpuscular Hemoglobin 31.9 pg (25.0-34.0); Mean Corpuscular Hgb Conc 33.6 g/dL (32.0-36.0); Mean Corpuscular Volume 94.7 fL (80.0-100.0); Mean Platelet Volume 11.3 fL (9.4-12.4); Platelet Count 271 K/uL (130-400); RDW Coefficient of Variation 12.4 % (11.5-14.5); RDW Standard Deviation 43.3 fL (36.4-46.3); Red Blood Count 3.42 M/uL (4.70-6.10); White Blood Count 12.81 K/ul (4.8-10.8)
[2023-09-24 07:09] LABS: BUN Creatinine Ratio 19.5 (10-20); Calcium 8.6 mg/dl (8.6-10.3); Creatinine Clr Calc Pharmacy 57.1 ml/min; Est GFR (African American) 61.5 ml/min; Potassium 4.5 mmol/L (3.5-5.1)
--- NOTE | 2023-09-24 07:51 | Surgery Progress Note ---
Date of Service September 24, 2023 Assessment & Plan (1) Status post left knee replacement: Plan: 72-year-old gentleman postop day 1 from left knee replacement doing reasonably well. Having a little bit more knee pain today. A little bit agitated and just slightly confused. Medically appears stable. He is neurologically intact. Plan: 1. DVT prophylaxis including thigh-high teds, SCDs, aspirin twice a day. 2. PT/OT. Weight-bear as tolerated left total knee protocol. 3. Pain control done okay with current pain regimen. We have to be careful not to great confusion issues with this pain. 4. Disposition plan to discharge to home with some home health. Will see how he does in therapy today Admission and Anticipated Discharge Date Admission Date: September 23, 2023 Subjective 72-year-old gentleman postop day 1 from left knee replacement. He is doing okay. Seems a little bit confused this morning. A little bit agitated as well. His knees hurt him a bit more than last evening. No chest pain or shortness of breath. Physical Exam Physical Exam: Physical examination was a pleasant elderly male. A sitting up in his chair once he was closed. Is in the process of looking to get dressed. Is knee exam reveals the dressing be clean dry and intact he can dorsiflex and plantarflex his foot appropriately. He can do a pretty good straight leg raise. Respiratory: normal respiratory effort, lungs clear to auscultation Cardiovascular: RRR, no murmur, no edema Gastrointestinal (Abdomen): normal bowel sounds, soft, nontender, no hepatosplenomegaly Results & Data Vital Signs (Past 12 Hours) Vital Signs Temp Pulse Resp BP Pulse Ox O2 Del Method 09/24/23 03:10 37 C 72 14 140/71 97 Room Air 09/23/23 23:35 36.8 C 67 16 125/67 98 Room Air Laboratory Results Hemoglobin is 10.9. Hematocrit is 32.4. Electrolytes are stable. PG Care Time/CCT Total # of Minutes Spent Total Time Spent with Patient: Total time spent is greater than 50% in coordination of care (as documented) at patient's floor/unit and/or counseling patient: Coding Level of Care Code 57701 Post Operative Follow-Up Diagnoses Status post left knee replacement Z96.652
[2023-09-24] MEDS: LANTUS PER UNIT CHARGE SC ONE (08:48)
[2023-09-24] MEDS: LOSARTAN POTASSIUM 50 MG TAB PO SCH (08:49)
[2023-09-24] MEDS: MULTIVITAMIN TAB PO SCH (08:49)
[2023-09-24] MEDS: allopurinoL 300 MG TAB PO SCH (08:49)
[2023-09-24] MEDS: TAMSULOSIN HCL 0.4 MG CAP PO SCH (08:49)
[2023-09-24] MEDS: amLODIPine BESYLATE 5 MG TAB PO SCH (08:50)
[2023-09-24] MEDS: hydroCHLOROthiazide 25 MG TAB PO SCH (08:51)
[2023-09-24] MEDS: dexAMETHasone 10 MG in SYRINGE 0 ML IV SCH (08:51)
[2023-09-24] MEDS: GABAPENTIN 600 MG TAB PO SCH (08:51)
[2023-09-24] MEDS ORDERED: ASPIRIN 81 MG ECTAB PO SCH (09:00)
[2023-09-24] MEDS ORDERED: NON-FORMULARY MEDICATION (Multivitamin Tablet) PO SCH (09:00)
--- NOTE | 2023-09-26 14:09 | Discharge Summary ---
Date of Service September 26, 2023 Discharge Data Procedures Performed Operation Date: 09/23/23 08:50 Actual Procedures p Left Total Knee Arthroplasty(Left) - Malick Piper MD Hospital Course (1) Status post left knee replacement: This is a 72 year old patient admitted on 09/23/23 and underwent total knee arthroplasty. He tolerated the procedure well and there were no complications. Transferred to the PACU post op and later to the orthopedic floor for further care. He was given ancef for antibiotic prophylaxis. He was also given KVNG stockings, SCDs, and aspirin for DVT prophylaxis. Hemoglobin, hematocrit, and vital signs were monitored during his hospital stay and remained stable. Did not require any blood transfusions. There were no complications during his hospital stay. By post op day #1 the patient was tolerating a diabetic diet, pain was reasonably controlled with oral pain medicine, and he was participating in physical therapy. On post op day #1 the patient was discharged home and set up with home health care. He was given printed discharge instructions including prescriptions for extra strength tylenol, aspirin, cefadroxil, zofran, senokot, tramadol, and flomax. Continue physical therapy, weight bearing as tolerated. Continue KVNG stockings. Follow up approximately 2 weeks post op or sooner if there are problems or concerns. Coding Level of Care Code None Diagnoses Status post left knee replacement Z96.652
== END 2023-09-24 13:57 | disposition home health service (06) ==
LOC: ASU 06:40 → 3E 06:40
DX: E11.22 Type 2 diabetes mellitus with diabetic chronic kidney disease; I12.9 Hypertensive chronic kidney disease with stage 1 through stage 4 chronic kidney disease, or unspecified chronic kidney disease; N18.9 Chronic kidney disease, unspecified; E78.5 Hyperlipidemia, unspecified; Z79.84 Long term (current) use of oral hypoglycemic drugs; Z79.899 Other long term (current) drug therapy; Z79.82 Long term (current) use of aspirin; M17.12 Unilateral primary osteoarthritis, left knee; M19.90 Unspecified osteoarthritis, unspecified site